=== PATIENT | male | born 1965 | race Hispanic/Latino ===

== ENCOUNTER 2017-11-27 02:59 | Inpatient (IN) | payer OTHER, SELFPAY ==
[2017-11-27] MEDS ORDERED: Ondansetron HCl/PF 4 MG/2 ML Vial ONE (03:20)
[2017-11-27] MEDS ORDERED: Lorazepam 2 MG/ML VIAL ONE (03:20)
[2017-11-27 03:28] LABS: #Basophils 0.1 thou/uL (0.0-0.2); #Eosinphils 0.2 thou/uL (0.0-0.7); #Lymphocytes 3.2 thou/uL (1.20-3.40); #Monocytes 0.7 thou/uL (0.11-0.59); #Neutrophils 8.5 thou/uL (1.40-6.50); %Basophils 0.8 % (0.0-1.0); %Eosinophils 1.4 % (0.0-10.0); %Monocytes 5.7 % (0.0-10.0); %Neutrophils 67.1 % (42.0-75.0); Hemoglobin 19.8 g/dL (14.0-18.0); Mean Corpuscular HGB CONC 33.7 g/dL (32.0-36.0); Mean Corpuscular Hemoglobin 32.2 pg (27.0-31.0); Mean Corpuscular Volume 95.4 fL (78.0-98.0); Mean Platelet Volume 7.7 fL (7.4-10.4); Platelet Count 294 thou/uL (130-400); RBC Distribution Width 12.4 % (11.5-14.5); Red Blood Cell (RBC) Count 6.17 mill/uL (4.70-6.10); White Blood Cell (WBC) Count 12.6 thou/uL (4.8-10.8)
[2017-11-27 03:45] LABS: Acetaminophen Less than 6.0 mcg/mL (10.0-30.0); Alcohol 217 mg/dL (Less than 10); Salicylate Less than 8.0 mg/dL (15.0-30.0)
[2017-11-27 03:53] LABS: Troponin I 1.928 ng/mL (< 0.028)
[2017-11-27] MEDS ORDERED: Enoxaparin Sodium 100 MG/ML SYRINGE ONE (04:09)
[2017-11-27] MEDS ORDERED: Aspirin 325 MG TAB ONE (04:09)
[2017-11-27 04:41] LABS: ALT (SGPT) 33 U/L (8-55); AST (SGOT) 65 U/L (5-34); Albumin 5.1 g/dL (3.5-5.0); Alkaline Phosphatase 104 U/L (40-150); Anion Gap 21 mmol/L (10-20); BUN (Urea Nitrogen) 7 mg/dL (8.4-25.7); Bilirubin, Total 0.9 mg/dL (0.2-1.2); CK (CPK) 455 U/L (30-200); Calc. Creatinine Clearance 0 mL/min (70-130); Calcium 9.3 mg/dL (7.8-10.44); Carbon Dioxide 25 mmol/L (22-29); Chloride 100 mmol/L (98-107); Estimated GFR-MDRD 86; Globulin 3.3 g/dL (2.4-3.5); Glucose 119 mg/dL (70-105); Potassium 3.3 mmol/L (3.5-5.1); Protein, Total 8.4 g/dL (6.0-8.3); Sodium 143 mmol/L (136-145)
[2017-11-27 05:13] LABS: Amphetamine Not Detected (NotDetected); Barbiturates Screen Not Detected (NotDetected); Benzodiazepine Screen Not Detected (NotDetected); Cocaine Metabolite Screen Detected (NotDetected); Medtox Reader # READER 1; Methadone Not Detected (NotDetected); Methamphetamine Not Detected (NotDetected); Opiate Screen Not Detected (NotDetected); Oxycodone Screen Not Detected (NotDetected); Phencyclidine (PCP) Not Detected (NotDetected); THC/Cannabinoid Screen Detected (NotDetected); Tricyclic Screen Not Detected (NotDetected)
[2017-11-27 05:14] LABS: Medtox Control Line Valid? VALID (VALID)
[2017-11-27 06:46] LABS: Troponin I 1.963 ng/mL (< 0.028)
[2017-11-27] MEDS ORDERED: Nitroglycerin 0.4 MG TAB (25 Tab Bottle) PO PRN (07:15)
--- NOTE | 2017-11-27 08:05 | RAD ---
PORTABLE CHEST 1 VIEW: Date: 11/27/17 Time: 0319 hours HISTORY: Chest pain. FINDINGS: Comparison made with exam of 06/15/15. The heart size is normal. No lobar consolidation, pneumothoraces, or pleural effusions are seen. IMPRESSION: No acute process. POS: [facility]
[2017-11-27] MEDS: Aspirin 325 MG TAB PO SCH (08:40)
[2017-11-27] MEDS: Carvedilol 3.125 MG TAB PO SCH ×2 (08:40→21:29)
[2017-11-27] MEDS: Enoxaparin Sodium 100 MG/ML SYRINGE SC SCH ×2 (08:40→21:28)
[2017-11-27] MEDS: Pantoprazole 40 MG VIAL IVP SCH ×2 (08:41→21:30)
[2017-11-27] MEDS: Sodium Chloride 0.9% 1,000 ML IV SCH ×2 (08:42→17:49)
[2017-11-27] MEDS: Amlodipine 5 MG TAB PO SCH (08:56)
[2017-11-27] MEDS: Losartan 25 MG TAB PO SCH (08:56)
[2017-11-27] MEDS ORDERED: Enoxaparin Sodium 80 MG/0.8 ML SYRINGE SC SCH (09:00)
[2017-11-27] MEDS ORDERED: Losartan 25 MG TAB PO SCH (09:00)
--- NOTE | 2017-11-27 09:20 | CON ---
DATE OF CONSULTATION: 11/27/2017 REASON FOR CONSULTATION: Chest pain, elevated troponins. HISTORY OF PRESENT ILLNESS: Mr. Barriga is a 51-year-old gentleman, who comes to the [facility] for chest pain. He was at home yesterday and earlier today started to have pain. He was vomiting for about 20 minutes prior to arrival to the ER. He has been drinking alcohol a lot more than usual for many years now. He has drank pretty much every evening after work, but the tells me that, i n the last few years, it has been more of two 6 packs after work. He has also been consuming cocaine . His last drink was yesterday about 9:00 p.m. He showed up to the ER at 3:00 a.m. He was admitted and he is currently still under the effects, but he is complaining of chest pain when you wake him u p. When I mentioned him that we might do a heart catheterization tomorrow, he tells me that he will just go home and come back tomorrow for it. PAST MEDICAL HISTORY: 1. Hypertension. 2. Type 2 diabetes. 3. Medication noncompliance. 4. Hyperlipidemia. 5. Substance abuse including cocaine since 11/2014 and alcohol use. 6. History of CVA. MEDICATIONS: 1. Losartan/hydrochlorothiazide 100/25 mg a day. 2. Metformin 500 mg daily. 3. Hydralazine 25 mg 3 times a day. ALLERGIES: No known drug allergies. SOCIAL HISTORY: He uses cocaine and marijuana, cocaine about 4 times a week, marijuana occasionally and alcohol use. He drinks about two 6 packs every day. He smokes a half a pack of cigarettes a day . REVIEW OF SYSTEMS: A 12-point review of systems was done and is all negative unless stated in the hi story of present illness. PHYSICAL EXAMINATION: VITAL SIGNS: Temperature 98.3, pulse 107, respiratory rate 18, satting 96% on room air, blood pressu re 184/106. GENERAL: He is sleeping in the bed. When we wake him up, he falls back to sleep. His speech is a l ittle slurred, seems a little intoxicated still, in no distress. HEENT: Normocephalic, atraumatic. NECK: Supple. LUNGS: Clear. CARDIOVASCULAR: S1 and S2, no S3 or S4, no murmurs. ABDOMEN: Soft, positive bowel sounds. EXTREMITIES: No edema. SKIN: Warm and dry. LABORATORY WORK: Reviewed. White count of 12, hemoglobin of 19.8, hematocrit of 58, platelet count of 294. Chemistry with a sodium of 143, potassium was 3.3, anion gap was 21, BUN of 7, creatinine 0. 92, GFR of 86, glucose of 119, AST 65, ALT 33, alkaline phosphatase 104. CK 455. CK-MB was 35. Tro ponin I was 1.9, repeat was 1.9; albumin of 5.1. Toxicology shows a plasma alcohol level of 217 and positive cocaine and cannabis. EKG shows no ischemic changes, sinus rhythm. ASSESSMENT AND PLAN: 1. Dud-SZ-fxwvczdyz myocardial infarction. 2. Cocaine use and alcohol use. 3. Hypertension. 4. Type 2 diabetes. 5. Noncompliance. PLAN: 1. Most likely, he will go into withdrawal in the next few hours or days. We would wait for this to happen before doing any invasive interventions on him. Currently, his troponin level is at a relati vely low level. I would probably continue to trend, get an echocardiogram to make sure his left vent ricular function is not reduced. 2. We would fully anticoagulate him with subcutaneous Lovenox at 1 mg/kilo b.i.d. 3. Counseled on importance of cessation of alcohol use and substance abuse. Thank you for letting us to participate in the care of your patient. We will continue to follow.
[2017-11-27] MEDS: Multivitamins, Adult 10 ML, Folic Acid 1 MG, Thiamine HCl 100 MG in Dextrose 5 %-0.45 %... IV SCH (10:30)
[2017-11-27 11:02] LABS: Hemoglobin 17.5 g/dL (14.0-18.0); Platelet Count 265 thou/uL (130-400)
--- NOTE | 2017-11-27 11:12 | HP ---
DATE OF ADMISSION: 11/27/2017 HISTORY OF PRESENT ILLNESS: This is a 51-year-old male with a long history of alcohol abuse, cocaine abuse, diabetes and hypertension, who presents with chest pain, nausea and vomiting. The patient has a long history of abuse. His is present. She states that he drinks excessive alcohol on a daily basis. He is followed by Dr. Godfrey in the office. He has been on a 3-day alco hol binge, beginning last . He has been drinking all throughout the day as well as using aislinn oliver and marijuana. He was doing well until yesterday evening when he began developing chest pain wi th intractable nausea and vomiting. This morning, he is restless, but does not complain of chest meagan n at this time. He has no further nausea and vomiting. The reports that he did have a history of a CVA in 2013. He also has not been taking any of these medications. MEDICATIONS: Include Ecotrin 325 q. day, hydralazine 25 t.i.d., losartan 50 q. day, Celexa 20 q. day , metformin 1000 b.i.d., and Lipitor 10 q. day. ALLERGIES: None. PAST MEDICAL HISTORY: Hypertension, hyperlipidemia, diabetes, alcohol, cocaine and marijuana abuse, history of CVA in 2013. PAST SURGICAL HISTORY: None noted. FAMILY HISTORY: Positive for diabetes, Alzheimer's, heart disease, mental illness, brain cancer. SOCIAL HISTORY: He is nonsmoker, drinks excessively, works and is . REVIEW OF SYSTEMS: As above. PHYSICAL EXAMINATION: VITAL SIGNS: Temperature 98.2, pulse 104, respirations 20, pulse ox 96, blood pressure 175/93. GENERAL: The patient is restless. He answers questions appropriately. HEENT: No jaundice noted. Mucous membranes somewhat dry. NECK: Supple. HEART: Regular rate and rhythm. LUNGS: Clear. ABDOMEN: Soft. EXTREMITIES: No edema. LABORATORY DATA: Drug screen positive for cocaine, marijuana, and alcohol with a level of 217. Whit e count 12.6, H&H 19 and 58. Sodium 143, potassium 3.3. Troponin I of 1.928 and 1.963. CK-MB 35. ASSESSMENT: 1. Uvt-JZ-wyaeydz elevation myocardial infarction. 2. Alcohol, cocaine and marijuana abuse. 3. Diabetes. 4. Hypertension. 5. Hyperlipidemia. 6. Depression. 7. Noncompliance. PLAN: 1. Banana bag daily. 2. PPI. 3. Echocardiogram. 4. Consult Cardiology. 5. DT precautions. 6. Hydrate and detox patient over the next several days.
[2017-11-27 11:28] LABS: Troponin I 2.763 ng/mL (< 0.028)
[2017-11-27] MEDS ORDERED: Metoprolol Tartrate 25 MG TAB PO SCH (13:30)
[2017-11-27] MEDS: hydrALAZINE 25 MG TAB PO SCH ×2 (14:43→21:30)
[2017-11-27] MEDS ORDERED: Dextrose 5% in Water 1,000 ML IV PRN (17:51)
[2017-11-27] MEDS ORDERED: Dextrose 50% Abboject 50 ML SYRINGE IVP PRN (17:51)
[2017-11-27 18:00] LABS: Hemoglobin 18.2 g/dL (14.0-18.0); Platelet Count 264 thou/uL (130-400)
[2017-11-27] MEDS: chlordiazePOXIDE HCl 25 MG CAP PO SCH (18:04)
[2017-11-27] MEDS: Metoprolol Tartrate 25 MG TAB PO SCH (21:29)
[2017-11-28] MEDS: chlordiazePOXIDE HCl 25 MG CAP PO SCH ×4 (01:02→17:13)
[2017-11-28 05:49] LABS: Cardiac Risk 3.2 (Less than 4.5)
[2017-11-28] MEDS: Sodium Chloride 0.9% 1,000 ML IV SCH ×3 (06:28→17:13)
[2017-11-28] MEDS ORDERED: Carvedilol 3.125 MG TAB PO SCH (07:31)
--- NOTE | 2017-11-28 07:48 | PRG ---
DATE OF SERVICE: 11/28/2017 The patient is feeling better. He feels tired, but denies chest pain or shortness of breath. He agarwal s have some recollection of what brought him to the emergency department, but it is hazy. Denies drai sea and vomiting. He admits to binging on alcohol, cocaine and marijuana over the past few days just because he has been working out of town. Denies tremors or jitteriness. No seizure activity. OBJECTIVE: VITAL SIGNS: Temperature 98.1, pulse of 97, respirations 18, blood pressure 160/104 which is improve d from admission. Pulse ox 96% on room air. GENERAL: He is awake and alert, appears tired, but in no acute distress. Speech is clear. Mucosa i s moist. NECK: Supple. HEART: Regular rate and rhythm. LUNGS: Clear bilaterally. ABDOMEN: Soft. No hepatosplenomegaly. EXTREMITIES: No edema. LABORATORY DATA: Hemoglobin and hematocrit 18.2 and 54.7. Accu-Cheks 163, 216, 183. Troponin I pea ked at 2.76. ASSESSMENT AND PLAN: 1. This is a 51-year-old gentleman with history of type 2 diabetes, hypertension, hyperlipidemia, kn own cerebrovascular accident in the past now with a non-ST elevation myocardial infarction. Continue Lovenox as per Cardiology. Await cardiology's plan for possible cardiac catheterization. 2. Cocaine use, alcohol use, marijuana use. Encourage abstinence from this. 3. Noncompliance, restarting his medicines. 4. Hypertension. We will continue to monitor, increase his medicines as needed.
[2017-11-28] MEDS: Amlodipine 5 MG TAB PO SCH (09:48)
[2017-11-28] MEDS: Carvedilol 6.25 MG TAB PO SCH ×2 (09:48→19:54)
[2017-11-28] MEDS: Aspirin 325 MG TAB PO SCH (09:48)
[2017-11-28] MEDS: Multivitamins, Adult 10 ML, Folic Acid 1 MG, Thiamine HCl 100 MG in Dextrose 5 %-0.45 %... IV SCH (09:49)
[2017-11-28] MEDS: hydrALAZINE 25 MG TAB PO SCH ×3 (09:49→19:54)
[2017-11-28] MEDS: Losartan 25 MG TAB PO SCH (09:49)
[2017-11-28] MEDS: Enoxaparin Sodium 100 MG/ML SYRINGE SC SCH ×2 (09:49→19:55)
[2017-11-28] MEDS: Metoprolol Tartrate 25 MG TAB PO SCH (09:49)
[2017-11-28] MEDS: Pantoprazole 40 MG VIAL IVP SCH ×2 (09:50→19:55)
[2017-11-28] MEDS: Insulin Regular 300 UNITS/3 ML VIAL SC PRN ×3 (11:33→21:25)
--- NOTE | 2017-11-28 15:54 | PDOC.CTH ---
Cardiology Progress Note - Subjective he has not gone into withdrawal yet but he is tachycardic. He denies chest pain , tightness, pressure, SOB. - Objective Vital Signs Temp Pulse Resp BP BP Pulse Ox 11/28/17 15:41 98.1 F 92 18 157/97 H 97 11/28/17 11:30 97.6 F 84 18 164/94 H 95 11/28/17 07:35 98.9 F 93 18 165/99 H 93 L 11/28/17 05:00 98.1 F 97 18 160/104 H 96 Admit Weight 194 lb 1 oz Weight 196 lb 6 oz 11/27/17 11/28/17 11/29/17 06:59 06:59 06:59 Intake Total 3142 Output Total 3200 Balance -58 - Physical Examination General/Neuro: alert & oriented x3, NAD Neck: no JVD present Lungs: CTA, unlabored respirations Heart: RRR Abdomen: NT/ND Extremities: other: (no edema) - Telemetry Telemetry Rhythm: Tachycardic - Labs Result Diagrams: 11/27/17 17:36 11/27/17 03:12 Troponin/CKMB CK-MB (CK-2) 35.0 ng/mL (0-6.6) H* 11/27/17 03:12 Troponin I 2.763 ng/mL (< 0.028) H* 11/27/17 10:23 - Assessment/Plan 1. NSTEMI 2. Alcohol abuse 3. Cocaine abuse 4. T2DM 5. Non compliance PLAN: - Continue medical management for now. - He has a normal EF with inferior hypokinesis on echo. - Will need LHC in the next few days. He has to prove he wont go into withdrawal first. - Likely LHC Tuesday if he is doing well tomorrow.
[2017-11-29] MEDS: chlordiazePOXIDE HCl 25 MG CAP PO SCH ×4 (00:05→20:17)
[2017-11-29] MEDS: Sodium Chloride 0.9% 1,000 ML IV SCH ×2 (03:41→23:17)
[2017-11-29] MEDS ORDERED: chlordiazePOXIDE HCl 25 MG CAP PO PRN (07:48)
--- NOTE | 2017-11-29 08:17 | PRG ---
DATE OF SERVICE: 11/29/2017 SUBJECTIVE: The patient is feeling fine. He denies any chest pain, shortness of breath. He is ambu lating in the anders. Denies any tremors or jitteriness. He is having a little bit more anxiety last night and today, mostly due to not sleeping well. Appetite is good. Awaiting heart catheterization. OBJECTIVE: VITAL SIGNS: Temperature 99.2, pulse of 88, respirations 18, blood pressure 145/90, pulse ox is 92-9 8% on room air. GENERAL: He is awake and alert, in no acute distress. He is comfortable. HEENT: Mucosa is moist. NECK: Supple. No tremors. No agitation. HEART: Regular rate and rhythm. LUNGS: Clear bilaterally. ABDOMEN: Soft. EXTREMITIES: With no edema. LABORATORY DATA: Accu-Cheks 154, 219, 211, 163. Echocardiogram with EF of 55% -60%, grade I/III ravindra stolic dysfunction and inferior hypokinesis, mildly dilated left atrium, mild MR, mild TR. ASSESSMENT AND PLAN: This is a 51-year-old gentleman with type 2 diabetes, hypertension, hyperlipide sparkle, cocaine and alcohol abuse and noncompliance, admitted with a non-ST elevation myocardial infarct ion. 1. Coronary artery disease. Plan for a left heart catheterization hopefully tomorrow per Cardiology . 2. Type 2 diabetes. We will continue meds and insulin sliding scale. 3. Substance abuse. No signs of withdrawal. We will continue Librium taper and move him to as need ed for symptoms. Encouraged abstinence. 4. Hypertension. We will continue to adjust medicines for tighter control.
[2017-11-29] MEDS: Pantoprazole 40 MG VIAL IVP SCH ×2 (09:24→20:23)
[2017-11-29] MEDS: Folic Acid 1 MG TAB PO SCH (09:28)
[2017-11-29] MEDS: Carvedilol 6.25 MG TAB PO SCH ×2 (09:28→20:17)
[2017-11-29] MEDS: Multivit, Therapeutic 1 TAB PO SCH (09:29)
[2017-11-29] MEDS: Aspirin 325 MG TAB PO SCH (09:45)
[2017-11-29] MEDS: Amlodipine 5 MG TAB PO SCH (09:45)
[2017-11-29] MEDS: Enoxaparin Sodium 100 MG/ML SYRINGE SC SCH ×2 (09:47→20:18)
[2017-11-29] MEDS: hydrALAZINE 25 MG TAB PO SCH ×3 (09:48→20:18)
[2017-11-29] MEDS: Losartan 25 MG TAB PO SCH (09:48)
[2017-11-29] MEDS ORDERED: chlordiazePOXIDE HCl 25 MG CAP PO SCH (12:00)
[2017-11-29] MEDS ORDERED: Promethazine HCl 25 MG/ML VIAL ONE (13:08)
--- NOTE | 2017-11-29 18:03 | PDOC.CTH ---
Cardiology Progress Note - Subjective He is doing better today. No chest pain, tightness, pressure, SOB. - Objective Vital Signs Temp Pulse Resp BP BP Pulse Ox 11/29/17 16:47 98.1 F 88 18 137/83 98 11/29/17 11:59 90 18 125/80 97 11/29/17 09:48 82 144/82 H 11/29/17 09:45 82 144/82 H 11/29/17 08:45 97.4 F L 82 16 144/82 H 98 Admit Weight 194 lb 1 oz Weight 199 lb 11.2 oz 11/28/17 11/29/17 11/30/17 06:59 06:59 06:59 Intake Total 3142 4613 1254 Output Total 3200 1600 733 Balance -58 3013 521 - Physical Examination General/Neuro: alert & oriented x3, NAD Neck: no JVD present Lungs: unlabored respirations Heart: RRR Abdomen: NT/ND Extremities: + edema B (no edema) - Telemetry Telemetry Rhythm: NSR - Labs Result Diagrams: 11/27/17 17:36 11/27/17 03:12 Troponin/CKMB CK-MB (CK-2) 35.0 ng/mL (0-6.6) H* 11/27/17 03:12 Troponin I 2.763 ng/mL (< 0.028) H* 11/27/17 10:23 - Assessment/Plan 1. NSTEMI 2. Alcohol abuse 3. Cocaine abuse 4. T2DM 5. Non compliance PLAN: - Normal EF with inferior hypokinesis on echo. - Will need [facility] tomorrow. - I spoke with him about this procedure, Risks including but not limited to stroke, [place], bleeding and need for blood transfusion, limb loss, organ loss, he agrees to proceed.
[2017-11-29] MEDS: Insulin Regular 300 UNITS/3 ML VIAL SC PRN (20:29)
[2017-11-30] MEDS: chlordiazePOXIDE HCl 25 MG CAP PO SCH ×2 (04:37→11:19)
[2017-11-30 05:35] LABS: ALT (SGPT) 22 U/L (8-55); AST (SGOT) 32 U/L (5-34); Albumin 3.7 g/dL (3.5-5.0); Alkaline Phosphatase 70 U/L (40-150); Anion Gap 11 mmol/L (10-20); BUN (Urea Nitrogen) 10 mg/dL (8.4-25.7); Bilirubin, Total 0.8 mg/dL (0.2-1.2); Calc. Creatinine Clearance 136 mL/min (70-130); Calcium 9.5 mg/dL (7.8-10.44); Carbon Dioxide 24 mmol/L (22-29); Chloride 108 mmol/L (98-107); Estimated GFR-MDRD Greater than 90; Globulin 2.9 g/dL (2.4-3.5); Glucose 182 mg/dL (70-105); Potassium 3.4 mmol/L (3.5-5.1); Protein, Total 6.6 g/dL (6.0-8.3); Sodium 140 mmol/L (136-145)
[2017-11-30 07:13] LABS: #Eosinphils 0.2 thou/uL (0.0-0.7); #Lymphocytes 1.8 thou/uL (1.20-3.40); #Monocytes 0.9 thou/uL (0.11-0.59); #Neutrophils 6.9 thou/uL (1.40-6.50); %Basophils 0.3 % (0.0-1.0); %Eosinophils 2.4 % (0.0-10.0); %Lymphocytes 18.5 % (21.0-51.0); %Monocytes 8.9 % (0.0-10.0); %Neutrophils 69.8 % (42.0-75.0); Hemoglobin 16.4 g/dL (14.0-18.0); Mean Corpuscular HGB CONC 33.1 g/dL (32.0-36.0); Mean Corpuscular Hemoglobin 32.1 pg (27.0-31.0); Mean Corpuscular Volume 96.8 fL (78.0-98.0); Platelet Count 196 thou/uL (130-400); RBC Distribution Width 12.3 % (11.5-14.5); Red Blood Cell (RBC) Count 5.11 mill/uL (4.70-6.10); White Blood Cell (WBC) Count 9.8 thou/uL (4.8-10.8)
--- NOTE | 2017-11-30 08:25 | PRG ---
DATE OF SERVICE: 11/30/2017 SUBJECTIVE: The patient continues to feel fine. He denies chest pain, shortness of breath. He is a mbulating in the room and slept fair last night. He denies any tremors or jitteriness. Denies seizu re activity. Anxiety has improved. Tolerating medications. Awaiting heart catheterization. PHYSICAL EXAMINATION: VITAL SIGNS: Temperature 98.2, pulse is 79, respirations 18, blood pressure 134/90, pulse ox is 96% on room air. GENERAL: He is awake and alert, in no acute distress. Speech is clear. NECK: Supple. HEART: Regular rate and rhythm. LUNGS: Clear. EXTREMITIES: With no edema. LABORATORY DATA: White blood cell count 9.8, hematocrit 16.4 and 49.5, platelets of 196. Sodium 140 , potassium 3.4, chloride 108, CO2 of 24, BUN and creatinine 10 and 0.81, serum glucose 150, 215, 164 . ASSESSMENT AND PLAN: This is a 51-year-old gentleman with history of type 2 diabetes, hypertension, hyperlipidemia, recent cocaine and alcohol use with noncompliance, admitted for a non-ST elevation my ocardial infarction. 1. Coronary artery disease. Plan for heart catheterization hopefully today if okay with Cardiology. Further plans after the procedure. 2. Type 2 diabetes. We will continue medications and sliding scale. 3. Substance abuse. Positive for cocaine, alcohol and marijuana. No signs of withdrawal at this ti me. Continue Librium taper. 4. Hypertension, stable. DISPOSITION: If the patient is able to have the heart catheterization today and cleared by Cardiolog y, possibly discharge home today with follow up in 1 week.
[2017-11-30] MEDS: Amlodipine 5 MG TAB PO SCH (09:15)
[2017-11-30] MEDS: Aspirin 325 MG TAB PO SCH (09:16)
[2017-11-30] MEDS: Enoxaparin Sodium 100 MG/ML SYRINGE SC SCH ×2 (09:16→22:17)
[2017-11-30] MEDS: Carvedilol 6.25 MG TAB PO SCH ×2 (09:16→22:18)
[2017-11-30] MEDS: Losartan 25 MG TAB PO SCH (09:19)
[2017-11-30] MEDS: Folic Acid 1 MG TAB PO SCH (09:19)
[2017-11-30] MEDS: Pantoprazole 40 MG VIAL IVP SCH ×2 (09:19→22:17)
[2017-11-30] MEDS: hydrALAZINE 25 MG TAB PO SCH ×3 (09:19→22:19)
[2017-11-30] MEDS: Multivit, Therapeutic 1 TAB PO SCH (09:19)
[2017-11-30] MEDS: Sodium Chloride 0.9% 1,000 ML IV SCH (09:28)
[2017-11-30] MEDS: Insulin Regular 300 UNITS/3 ML VIAL SC PRN (18:24)
--- NOTE | 2017-11-30 18:34 | PDOC.CTH ---
Cardiology Progress Note - Subjective No new issues. No chest pain. - Objective Vital Signs Temp Pulse Resp BP BP Pulse Ox 11/30/17 15:57 98.1 F 84 16 124/76 124/76 94 L 11/30/17 11:19 98.2 F 89 16 123/77 123/77 97 11/30/17 07:49 98.2 F 79 18 134/90 134/90 96 11/30/17 07:29 95 Admit Weight 194 lb 1 oz Weight 198 lb 11/29/17 11/30/17 12/01/17 06:59 06:59 06:59 Intake Total 4613 2351 Output Total 1600 1233 Balance 3013 1118 - Physical Examination General/Neuro: alert & oriented x3, NAD Neck: no JVD present Lungs: CTA, unlabored respirations Heart: RRR Abdomen: NT/ND Extremities: other: (no edema) - Telemetry Telemetry Rhythm: NSR - Labs Result Diagrams: 11/30/17 04:50 11/30/17 04:50 Troponin/CKMB CK-MB (CK-2) 35.0 ng/mL (0-6.6) H* 11/27/17 03:12 Troponin I 2.763 ng/mL (< 0.028) H* 11/27/17 10:23 - Assessment/Plan 1. NSTEMI 2. Alcohol abuse 3. Cocaine abuse 4. T2DM 5. Non compliance PLAN: - [facility] tomorrow.
[2017-12-01] MEDS: Sodium Chloride 0.9% 1,000 ML IV SCH ×2 (05:43→05:54)
[2017-12-01] MEDS: Losartan 25 MG TAB PO SCH (05:50)
[2017-12-01] MEDS: Amlodipine 5 MG TAB PO SCH (05:51)
[2017-12-01] MEDS: Folic Acid 1 MG TAB PO SCH (05:51)
[2017-12-01] MEDS: Carvedilol 6.25 MG TAB PO SCH ×2 (05:51→21:58)
[2017-12-01] MEDS: Aspirin 325 MG TAB PO SCH (05:51)
[2017-12-01] MEDS: Multivit, Therapeutic 1 TAB PO SCH (05:51)
[2017-12-01] MEDS: Pantoprazole 40 MG VIAL IVP SCH ×2 (05:52→21:58)
[2017-12-01] MEDS: hydrALAZINE 25 MG TAB PO SCH ×3 (05:52→21:57)
[2017-12-01] MEDS: Enoxaparin Sodium 100 MG/ML SYRINGE SC SCH (05:52)
[2017-12-01] MEDS ORDERED: chlordiazePOXIDE HCl 25 MG CAP PO PRN (08:38)
--- NOTE | 2017-12-01 08:49 | PRG ---
DATE OF SERVICE: 12/01/2017 SUBJECTIVE: The patient feels fine. He denies chest pain or shortness of breath. He is awaiting hi s heart catheterization. He does have some anxiety and night sweats at night, but improves with his medication. No tremors, no jitteriness, no seizure activity. Tolerating medications. Again, ambula ting without chest pain or shortness of breath. OBJECTIVE: VITAL SIGNS: Temperature 97.9, pulse of 83, respirations 17, blood pressure 124/76, pulse ox is 96% on room air. GENERAL: He is awake and alert, in no acute distress. No resting tremor. Speech is clear. NECK: Supple. HEART: Regular rate and rhythm. LUNGS: Clear. EXTREMITIES: No edema. LABORATORY DATA: Accu-Cheks 228, 183, 286, 197, 150. Heart catheterization is pending. ASSESSMENT AND PLAN: This is a 51-year-old gentleman with a history of type 2 diabetes, hypertension , hyperlipidemia, cocaine and alcohol abuse and noncompliance, who was admitted with a non-ST elevati on myocardial infarction. 1. Coronary artery disease. Plan for heart catheterization per Cardiology. Further plans after the procedure. 2. Type 2 diabetes. Will increase his medications. 3. Substance abuse. No signs of withdrawal. We will continue Librium p.r.n. at this time. 4. Hypertension. We will continue oral medications. DISPOSITION: Hopefully home today with close followup.
[2017-12-01] MEDS ORDERED: Lidocaine 1% (PF) 30 ML VIAL ONE (11:38)
[2017-12-01] MEDS ORDERED: Fentanyl 100 MCG/2 ML VIAL ONE (12:16)
[2017-12-01] MEDS ORDERED: Midazolam HCl 2 mg/2 ml Vial ONE (12:16)
[2017-12-01] MEDS ORDERED: Iopamidol 370 76% 100 ML VIAL ONE (12:24)
[2017-12-01] MEDS ORDERED: traMADol HCl 50 MG TAB PO PRN (12:47)
[2017-12-01] MEDS ORDERED: Acetaminophen/Codeine 30-300mg Tablet PO PRN (12:47)
[2017-12-01] MEDS ORDERED: Sodium Chloride 0.9% 1,000 ML IV SCH (13:00)
[2017-12-01] MEDS ORDERED: Sodium Chloride 0.9% 200 ML IV SCH (13:00)
[2017-12-01] MEDS: Insulin Regular 300 UNITS/3 ML VIAL SC PRN (17:22)
[2017-12-01] MEDS ORDERED: Communication Order-Pharmacy FS ONE (18:29)
[2017-12-01 19:23] LABS: Hemoglobin A1c 7.2 % (4.0-6.0)
[2017-12-01 19:24] LABS: PTT 32.7 SEC (22.9-36.1); Prothrombin Time 13.1 SEC (12.0-14.7)
--- NOTE | 2017-12-02 00:23 | CON ---
DATE OF CONSULTATION: 12/01/2017 REQUESTING PHYSICIAN: Dr. Villegas. CHIEF COMPLAINT: Chest pain. HISTORY OF PRESENT ILLNESS: Patient is a 51-year-old diabetic hypertensive man with a positive famil y history of coronary artery disease. The patient apparently has a well-known history of alcohol and illicit drug use. He presented this past weekend with prolonged chest pain, nausea and vomiting aft er a binge of drinking and using cocaine. He ruled in for myocardial infarction by enzymes, although he had no ST changes on his EKG. He did have poor R-wave progression in precordial leads and deep Q -waves in leads III and AVF. He underwent cardiac catheterization today, which demonstrated coronary artery disease primarily affecting the LAD distribution. PAST MEDICAL HISTORY: Significant for hypertension, diabetes, and substance abuse. HOME MEDICATIONS: Januvia 50 mg a day, hydralazine 50 mg t.i.d., losartan 100 mg a day, Coreg 12.5 m g b.i.d., Norvasc 5 mg a day. Normally, he is also on p.r.n. Librium and thiamine. His antihyperten sive regimen an adult aspirin if continued, he is on b.i.d. IV Protonix and full anticoagulation Love nox at 90 mg q.12 hours ALLERGIES: He denies any medical allergies. He says that he quit smoking after his stroke in 2013 (hospital records would indicate that he had a left hemispheric stroke in 2013, at which time he had a normal carotid ultrasound and normal CTA of t he carotids). FAMILY HISTORY: Significant for coronary artery disease in a grandparent and positive for diabetes. REVIEW OF SYSTEMS: Negative for any current eye, speech, facial or extremity symptoms consistent wit h TIAs. He reports resolved dysarthria following his stroke, but minimal residual right leg weakness . He denies any baseline shortness of breath or wheezing, any antecedent chest pain. PHYSICAL EXAMINATION: GENERAL: He is a ramos appearing man in no distress. He is 5 feet 8 inches, weighs 198 pounds. VITAL SIGNS: On presentation, his heart rate was 103 and blood pressure 183/113. Most recently, his heart rate was 80 and blood pressure 144/85, temperature is 98.7, room air O2 sats are 96%. HEENT: He has no xanthelasma. NECK: No JVD, no carotid bruits. LUNGS: Chest is clear to auscultation. CARDIOVASCULAR: He has a regular rate and rhythm without murmur or gallop. ABDOMEN: Soft, nontender. EXTREMITIES: He has easily palpable radial, dorsalis pedis, and posterior tibial pulses. He has no obvious varicosities. No clubbing, cyanosis or edema. NEUROLOGIC: Cranial nerves II-XII and upper and lower extremity strength are grossly normal. DIAGNOSTIC DATA: His chest x-ray showed some vascular crowding consistent with either poor inspirati on or pulmonary edema. His EKG is as described as above. His cardiac catheterization shows some min imal luminal irregularity in the very proximal LAD. He has a small first diagonal that appears diffu sely diseased, but there is a focal high-grade stenosis proximally, measuring about 80 or 90%. Short ly after that, serial lesions in his LAD with the worst one being about 70-80%. The LAD goes around to the apex as a circumflex gives rise to a very large first obtuse marginal. Circumflex proper and that first OM are smooth. There is an occluded tiny OM2. He has a fairly good sized right coronary system with both PDA and posterolateral branch, has been fairly well developed. There is a hint of s ome minimal luminal irregularity in the origin of the PDA. LVEF by my estimate to be about 40 or per haps 50% with a distinct area of inferoapical akinesis. LV pressure is 135/7 with an EDP of 31. Aor tic pressure on pullback is 138/78 with a mean of 102. LABORATORY DATA: Laboratory exam showed white count of 12.6, hemoglobin 19.8, hematocrit 58.8, plate lets 294,000 on admission. His MCV was 95.4 even today after 4 days of hydration, his hemoglobin is 16.4. PT is 13.6, INR 1.0, PTT 26.8 in 05/2015, been no more done more recently than that. His elec trolytes are normal. Glucose 119, BUN 7, creatinine 0.92 on admission and remained fairly similar wi BUN 10 and creatinine 0.81 this morning, his LFTs have been normal. Calcium normal. Cholesterol was 165 with LDL 85 and HDL 51, triglycerides 143. In looking back to previous visits, his last hemo globin A1c in our system was in March of this year was 8.6; going back to 2012, his hemoglobin A1c 's have ranged from 7.7-10.3. IMPRESSION AND RECOMMENDATIONS: Severe single-vessel disease. The occluded obtuse marginal is a tin y vessel that is not likely to be bypassable. There is trivial disease in the PDA. The affected ravindra gonal is fairly modest size and appears to be of diffuse enough disease that it may or may not be gra ftable. Bypassing the LAD without the diagonal will provide good symptomatic control and certainly o nce he is over the operation, will not in the short term require medical compliance, but I have discu ssed with him the importance of long-term risk factor modification. I have also stressed to him that bypass surgery, in this setting, does not offer significant enough advantage over medical therapy or PCI to survival advantage. I have explained this to him in the presence of his and his mother. He has had a chance to think about this during the day after his discussion with the regulatory affairs coordinator, Dr. Villegas and he wishes to proceed with coronary artery bypass grafting.
[2017-12-02] MEDS: Sodium Chloride 0.9% 1,000 ML IV SCH ×3 (05:05→16:59)
[2017-12-02 05:10] LABS: Calc. Creatinine Clearance 141 mL/min (70-130); Estimated GFR-MDRD Greater than 90
[2017-12-02 05:11] LABS: Hemoglobin 15.6 g/dL (14.0-18.0); Platelet Count 232 thou/uL (130-400)
[2017-12-02] MEDS: Carvedilol 6.25 MG TAB PO SCH (07:47)
--- NOTE | 2017-12-02 08:28 | PRG ---
DATE OF SERVICE: 12/02/2017 SUBJECTIVE: The patient denies chest pain. Denies shortness of breath. He tolerated the cardiac ca th procedure yesterday and is planning for coronary bypass graft today. He denies any tremors. He s lept better last night with less night sweats. He is ambulating in the hallway without difficulty. Slightly anxious about the procedure today. OBJECTIVE: VITAL SIGNS: Temperature 98.6, pulse of 83 and regular, respirations 16, blood pressure 155/95, puls e ox is 98% on room air. GENERAL: He is awake and alert, in no acute distress. Speech is clear. HEART: Regular rate and rhythm. LUNGS: Clear. EXTREMITIES: With no edema. LABORATORY DATA: Hemoglobin and hematocrit 15.6 and 46.2, platelets of 232,000. PT, PTT are normal. GFR greater than 90. Accu-Chek 228, 204, 154. Again, cardiac catheterization revealed severe mid LAD disease, normal ejection fraction of 55%, ann re D1 moderate sized vessel. ASSESSMENT AND PLAN: This is a 51-year-old gentleman admitted for chest pain and non-ST elevation MS as well as recent substance abuse including cocaine, marijuana, and alcohol. 1. Coronary artery disease. Plan for bypass today per Dr. Rose. 2. Type 2 diabetes. We will continue to increase treatment. We will initiate Lantus today. 3. Hypertension. We will continue oral meds. 4. Substance abuse, successfully detoxed, continue Librium p.r.n. and watch for signs of withdrawals .
[2017-12-02] MEDS ORDERED: Alogliptin 6.25 MG TAB PO SCH (09:00)
[2017-12-02] MEDS ORDERED: PROPOFOL 200 MG/20 ML VIAL ONE (10:01)
[2017-12-02] MEDS ORDERED: Mannitol 12.5 GM/50 ML ONE (10:01)
[2017-12-02] MEDS ORDERED: Thrombin 5000 UNITS/5 ML VIAL ONE (10:01)
[2017-12-02] MEDS ORDERED: Aminocaproic Acid 5 GM/20 ML VIAL ONE (10:01)
[2017-12-02] MEDS ORDERED: Heparin 5,000 UNITS/ML VIAL ONE (10:01)
[2017-12-02] MEDS ORDERED: Calcium Chloride 1 GM/10 ML Abboject SYRINGE ONE (10:01)
[2017-12-02] MEDS ORDERED: Protamine Sulfate 250 MG/25 ML VIAL ONE (10:01)
[2017-12-02] MEDS ORDERED: Papaverine 60 MG/2 ML VIAL ONE (10:01)
[2017-12-02] MEDS ORDERED: Cardioplegic Soln 1,000 ML BAG ONE (10:01)
[2017-12-02] MEDS ORDERED: Nitroglycerin 50 MG/250 ML BOT ONE (10:01)
[2017-12-02] MEDS ORDERED: Magnesium 5 GM/10 ML VIAL ONE (10:01)
[2017-12-02] MEDS ORDERED: Heparin 30,000 units/30 ml VIAL ONE (10:01)
[2017-12-02] MEDS ORDERED: Lidocaine 2% PF 100 mg/5 ml Syringe ONE (10:01)
[2017-12-02] MEDS ORDERED: Potassium Chloride 60 MEQ/30 ML VIAL ONE (10:01)
[2017-12-02] MEDS ORDERED: Sodium Bicarb 50 MEQ/50 ML Abboject 8.4% SYRINGE ONE (10:01)
[2017-12-02] MEDS ORDERED: Vecuronium 10 MG VIAL ONE ×2 (10:01→12:05)
[2017-12-02] MEDS ORDERED: Albumin 5% 0 ML ONE (11:04)
[2017-12-02] MEDS ORDERED: CEFAZOLIN/Water 2 GM/20 ML SYRINGE ONE (11:20)
[2017-12-02] MEDS ORDERED: Heparin 10,000 UNITS/1 ML VIAL 30,000 UNITS in Sodium Chloride 0.9% 1,000 ML FS SCH (12:00)
[2017-12-02] MEDS ORDERED: Fentanyl 250 MCG/5 ML VIAL ONE (12:05)
[2017-12-02] MEDS ORDERED: Midazolam HCl 5 mg/5 ml Vial ONE (12:05)
[2017-12-02] MEDS ORDERED: Midazolam HCl 2 mg/2 ml Vial ONE (12:15)
--- NOTE | 2017-12-02 13:01 | PDOC.CTH ---
Cardiology Progress Note - Subjective He is doing well. He was seen before surgery. he decided to have CABG. - Objective Vital Signs Temp Pulse Resp BP BP BP Pulse Ox 12/02/17 07:47 155/95 H 12/02/17 07:10 98.6 F 83 16 155/95 H 98 12/02/17 06:55 94 L 12/02/17 04:00 98.6 F 79 17 134/78 97 Admit Weight 194 lb 1 oz Weight 198 lb 12/01/17 12/02/17 12/03/17 06:59 06:59 06:59 Intake Total 1760 1377 Output Total 1200 1240 Balance 560 137 - Physical Examination General/Neuro: alert & oriented x3, NAD Neck: no JVD present Lungs: CTA, unlabored respirations Heart: RRR Abdomen: NT/ND Extremities: other: (No edema) - Telemetry Telemetry Rhythm: NSR - Labs Result Diagrams: 12/02/17 04:37 12/02/17 04:37 Troponin/CKMB CK-MB (CK-2) 35.0 ng/mL (0-6.6) H* 11/27/17 03:12 Troponin I 2.763 ng/mL (< 0.028) H* 11/27/17 10:23 - Assessment/Plan 1. NSTEMI 2. Alcohol abuse 3. Cocaine abuse 4. T2DM 5. Non compliance PLAN: - Multivessel CAD. - For CABG today.
[2017-12-02] MEDS ORDERED: Heparin 10,000 UNITS/1 ML VIAL ONE (13:13)
[2017-12-02] MEDS ORDERED: Insulin Regular 300 UNITS/3 ML VIAL ONE (14:46)
[2017-12-02] MEDS ORDERED: Promethazine HCl 25 MG/ML VIAL IM PRN (16:07)
[2017-12-02] MEDS ORDERED: hydrALAZINE 20 MG/ML VIAL SLOW IVP PRN (16:07)
[2017-12-02] MEDS ORDERED: Guaifenesin DM 100-10/5 ML UDCUP PO PRN (16:07)
[2017-12-02] MEDS ORDERED: Mag-Al 1200 mg/1200 mg/30 ML UDCUP PO PRN (16:07)
[2017-12-02] MEDS ORDERED: Dextrose 5% in Water 1,000 ML IV PRN ×2 (16:07→16:30)
[2017-12-02] MEDS ORDERED: Hetastarch 6% 500 ML 500 ML IVPB PRN (16:07)
[2017-12-02] MEDS ORDERED: Bisacodyl 5 MG TAB PO PRN (16:07)
[2017-12-02] MEDS ORDERED: Dextrose 50% Abboject 50 ML SYRINGE SLOW IVP PRN ×2 (16:07→16:30)
[2017-12-02] MEDS ORDERED: Acetaminophen 325 MG TAB PO PRN (16:07)
[2017-12-02] MEDS ORDERED: Norepinephrine 8 MG/0.9% NS 250 ML IVPB PRN (16:07)
[2017-12-02] MEDS ORDERED: HYDROcodone/Acetaminophen 5/325 mg Tablet PO PRN (16:07)
[2017-12-02] MEDS ORDERED: Nitroglycerin 50 MG/250 ML BOT 250 ML IVPB PRN (16:07)
[2017-12-02] MEDS ORDERED: Post-Op Insulin Drip Protocol IVPB ONE (16:07)
[2017-12-02] MEDS ORDERED: Bisacodyl 10 MG SUPP PR PRN (16:07)
[2017-12-02] MEDS ORDERED: Fentanyl 100 MCG/2 ML VIAL SLOW IVP PRN ×2 (16:07)
[2017-12-02] MEDS ORDERED: Ondansetron HCl/PF 4 MG/2 ML Vial IVP PRN (16:07)
[2017-12-02] MEDS: Morphine 2 MG/ML SYRINGE SLOW IVP PRN ×2 (16:49→17:41)
[2017-12-02] MEDS: Ketorolac Tromethamine 30 MG/ML VIAL IVP SCH ×2 (16:50→22:59)
[2017-12-02 17:04] LABS: Base Excess (BEa) 1.3 mEq/L (-2.0 to +3.0); CO2 Tension 32.6 mmHg (35.0-45.0); Calcium, Ionized 1.16 mmol/L (1.12-1.30); Carboxyhemoglobin (COHb) 1.6 gm% (0.0-3.0); Hemoglobin (Hb) 15.4 g/dL (14.0-18.0); Potassium - ABG Lab 2.98 mmol/L (3.70-5.30); pH, Arterial 7.48 (7.35-7.45)
[2017-12-02 17:05] LABS: Puncture Site ALINE
[2017-12-02 17:07] LABS: Hemoglobin 14.7 g/dL (14.0-18.0)
[2017-12-02 17:09] LABS: Hemoglobin 14.7 g/dL (14.0-18.0); Mean Corpuscular HGB CONC 33.8 g/dL (32.0-36.0); Mean Corpuscular Hemoglobin 32.8 pg (27.0-31.0); Mean Corpuscular Volume 97.1 fL (78.0-98.0); Mean Platelet Volume 8.8 fL (7.4-10.4); Platelet Count 207 thou/uL (130-400); Red Blood Cell (RBC) Count 4.47 mill/uL (4.70-6.10); White Blood Cell (WBC) Count 26.3 thou/uL (4.8-10.8)
[2017-12-02 17:11] LABS: INR-International Normal Ratio 1.3; PTT 31.1 SEC (22.9-36.1)
[2017-12-02 17:22] LABS: Anion Gap 9 mmol/L (10-20); BUN (Urea Nitrogen) 11 mg/dL (8.4-25.7); Calc. Creatinine Clearance 161 mL/min (70-130); Calcium 8.6 mg/dL (7.8-10.44); Carbon Dioxide 22 mmol/L (22-29); Chloride 109 mmol/L (98-107); Estimated GFR-MDRD Greater than 90; Glucose 169 mg/dL (70-105); Potassium 3.4 mmol/L (3.5-5.1); Sodium 137 mmol/L (136-145)
[2017-12-02 17:24] LABS: Band 8 % (5-11); Lymphocytes 16 % (21-51); MDiff Complete? YES; Monocytes 6 % (0-10); Neutrophil 70 % (42-75); PLT Morphology Comment Appears Adequate; RBC Morphology Normal
[2017-12-02] MEDS: Enalaprilat Dihydrate 1.25 MG/ML VIAL SLOW IVP PRN ×2 (17:25→23:21)
[2017-12-02 17:44] LABS: Potassium 3.4 mmol/L (3.5-5.1)
--- NOTE | 2017-12-02 17:48 | RAD ---
CHEST ONE VIEW: 12/02/17 HISTORY: Heart surgery. Followup. COMPARISON: 11/27/17. FINDINGS: Cardiac silhouette magnified by projection. Pulmonary vasculature is unremarkable. Mediastinum is mi dline with postoperative changes now evident. radiopaque mediastinal drains. Tip of an endotracheal catheter overlies the thoracic inlet. Tip of a left subclavian central venous catheter overlies the cavoatrial junction. No evidence of pneumothorax. IMPRESSION: Interval postoperative changes mediastinum. Lines and tubes appear in good radiographic position. POS: [facility]
[2017-12-02] MEDS: Potassium Chloride 20 MEQ/100 ML PREMIX BAG IVPB PRN ×2 (17:59→22:58)
[2017-12-02 18:18] VITALS: BMI 31.1
[2017-12-02] MEDS: Docusate 100 MG CAP PO SCH (20:09)
[2017-12-02] MEDS: Atorvastatin Calcium 40 MG TAB PO SCH (20:10)
[2017-12-02] MEDS ORDERED: Famotidine/PF 20 mg/2ml Vial SLOW IVP SCH (21:00)
[2017-12-02] MEDS ORDERED: Insulin Glargine 10 UNITS in Pre-Filled Syringe 1 EACH SC SCH (21:00)
[2017-12-02 22:16] LABS: Hemoglobin 14.6 g/dL (14.0-18.0)
[2017-12-02 22:39] LABS: Potassium 3.9 mmol/L (3.5-5.1)
--- NOTE | 2017-12-02 22:47 | OP ---
DATE OF PROCEDURE: 12/02/2017 PROCEDURES PERFORMED: Coronary artery bypass grafting x3 with left internal mammary artery to the di stal LAD and reverse greater saphenous vein graft from the aorta to the first diagonal and to the sec ond obtuse marginal. PREOPERATIVE DIAGNOSIS: Coronary artery disease, status post non-ST elevation myocardial infarction. POSTOPERATIVE DIAGNOSIS: Coronary artery disease, status post non-ST elevation myocardial infarction . SURGEON: Dr. Rose. PRODUCTION SCHEDULER: Dr. Kaminski. ANESTHESIA: General endotracheal anesthesia. INDICATIONS: The patient is a 51-year-old diabetic man who presented with protracted chest pain and ruled in for myocardial infarction by enzymes. Cardiac catheterization demonstrated high grade disea se in his LAD and then a marginally sized first diagonal. He also had an occluded small OM2 with no compromising disease in the large OM1 and trivial disease in the PDA. He had a low normal EF at arou nd 40% with an area of inferior lead with apical akinesis. He is now taken to the operating room for surgical revascularization. FINDINGS: Pump time 67 minutes, crossclamp time 32 minutes. Good quality AUBREY and saphenous vein. L AD was about 2 mm somewhat sclerotic vessel. The first diagonal was about a 1.5 mm good quality vess el. The second obtuse marginal is 1-1.5 mm vessel where it is grafted proximally. The pericardium w as closed. NARRATIVE REPORT: After informed consent was obtained, the patient was taken to the operating room a nd placed in supine position on the operating table. After the induction of general endotracheal ane sthesia, vein in his left lower extremity was mapped ultrasonographically. His left upper chest was prepped and draped in sterile fashion. He was placed in Trendelenburg and a triple-lumen central rachna e kit was used to place a left subclavian line by the Seldinger technique. All three ports easily as pirated and flushed. The line was secured to the skin with suture. The patient's torso, groins and lower extremities were then prepped and draped in sterile fashion. A median sternotomy was performed . The pericardium was opened and the heart was examined. The first diagonal appeared to be reasonab ly good sized and good quality vessel. Exposure of the circumflex system was somewhat more difficult , but the second obtuse marginal at least on a warm beating heart appeared to be of reasonable sized at least consider grafting. The patient tolerated these maneuvers. The sternal retractor was placed with an AUBREY retractor and through an extrapleural exposure, the left AUBREY was mobilized as a pedicle from the level of the xiphoid to the level of the subclavian vein while an insurance claims assistant endoscopically h arvested greater saphenous vein from the left knee to the left groin. The vein was prepared for gee ting and the harvest sites closed in layers of subcutaneous and subcuticular Vicryl. The patient was heparinized. The mammary was ligated and divided distally. There was excellent flow through the ma mmary which was instilled intraluminally with papaverine solution. The mammary bed was inspected for hemostasis. The hilar reflections of the pleura were mobilized. A small rent in the pleura anterio rly near the apex was oversewn with Prolene. The pericardium was marsupialized and the aorta was aga in reexamined. It was soft. A double concentric pursestring of 2-0 Ethibond was placed in the ascen ding aorta within the pericardial reflection and a single pursestring was placed in the right atrial appendage. Aortic and venous cannulae were inserted and secured by their pursestrings. The plane be tween the aorta and the pulmonary artery was developed. Cardiopulmonary bypass was instituted and th e patient was systemically cooled. The heart was reexamined and an aortic cross clamp was applied an d cardioplegia was administered through an aortic root needle. When arrest had been achieved, attent ion was turned to the circumflex system. The second obtuse marginal was a fairly small vessel but ve ry proximally it appeared to be of adequate size to support graft. It was exposed and opened with a [place] blade and Cross scissors. Reverse greater saphenous vein was anastomosed with running 6-0 Prolene suture passing 1 mm probe easily through the toe of the anastomosis. The anastomosis was lynette zoila by flushing cold cardioplegia through the graft. Attention was then turned to the diagonal. It was opened and grafted in a similar fashion. The LAD was then opened. The mammary was passed throug h a slit in the pericardium anterior to the left phrenic nerve and anastomosed to the LAD end-to-side with running 7-0 Prolene. The mammary pedicle was tacked to the epicardium. The aortic cross clamp s were placed with the partial occluding clamp. Aortotomies were made in the ascending aorta with a scalpel and punch incorporating the root needle site for one of the aortotomies. The diagonal graft was anastomosed to the more proximal aortotomy and the OM2 graft to the more distal aortotomy. Occlu ding clamp removed. The vein grafts were deaired and the bulldogs were removed from the anastomoses were inspected for hemostasis. The proximal anastomoses were marked with small Hemoclips. A posteri or pericardial drain was brought out through separate incision and secured with suture. Right atrial and right ventricular temporary epicardial pacing wires were placed. When the patient was adequatel y rewarmed, he was then easily from cardiopulmonary bypass. The aortic and venous cannulae were removed and their pursestring secured. Protamine was administered. When hemostasis was adequa te, an anterior mediastinal drain was placed and the pericardium and was easily closed over the runni ng Vicryl. The sternum was treated with platelet rich GPS and vancomycin paste and reapproximated wi th #7 stainless steel wires. The fascia and subcutaneous tissue was irrigated and treated with plate let poor GPS. The fascia was closed over the wires with heavy Vicryl. The subcutaneous tissue was t reated with additional platelet poor GPS and reapproximated with running Vicryl, and the skin was luiza sed with Vicryl subcuticular stitch. The wounds were dressed and the patient was taken to the Intens sade Care Unit in stable condition.
[2017-12-02 23:02] LABS: Actual Bicarbonate (HCO3a) 22.2 mEq/L (22-28); Analyzer IN Cardio ER; Base Excess (BEa) -1.6 mEq/L (-2.0 to +3.0); CO2 Tension 35.3 mmHg (35.0-45.0); Calcium, Ionized 1.15 mmol/L (1.12-1.30); Carboxyhemoglobin (COHb) 0.5 gm% (0.0-3.0); Hemoglobin (Hb) 14.8 g/dL (14.0-18.0); O2 Tension (PaO2) 106.8 mmHg (80.0-100.0); Potassium - ABG Lab 3.82 mmol/L (3.70-5.30); pH, Arterial 7.42 (7.35-7.45)
[2017-12-02 23:26] LABS: ALV-art Gradient 134.275 (0-20); Puncture Site ALINE
[2017-12-02] MEDS: HYDROcodone/Acetaminophen 5/325 mg Tablet PO PRN (23:55)
[2017-12-03 03:29] LABS: #Lymphocytes 0.8 thou/uL (1.20-3.40); #Monocytes 1.2 thou/uL (0.11-0.59); #Neutrophils 15.3 thou/uL (1.40-6.50); %Eosinophils 0.1 % (0.0-10.0); %Lymphocytes 4.7 % (21.0-51.0); %Monocytes 6.9 % (0.0-10.0); %Neutrophils 88.3 % (42.0-75.0); Hemoglobin 13.9 g/dL (14.0-18.0); Mean Platelet Volume 8.5 fL (7.4-10.4); Platelet Count 211 thou/uL (130-400); RBC Distribution Width 12.3 % (11.5-14.5); White Blood Cell (WBC) Count 17.3 thou/uL (4.8-10.8)
[2017-12-03 03:44] LABS: Anion Gap 10 mmol/L (10-20); BUN (Urea Nitrogen) 14 mg/dL (8.4-25.7); Calc. Creatinine Clearance 174 mL/min (70-130); Calcium 8.8 mg/dL (7.8-10.44); Carbon Dioxide 25 mmol/L (22-29); Chloride 108 mmol/L (98-107); Estimated GFR-MDRD Greater than 90; Glucose 121 mg/dL (70-105); Potassium 3.8 mmol/L (3.5-5.1); Sodium 139 mmol/L (136-145)
[2017-12-03] MEDS: HYDROcodone/Acetaminophen 5/325 mg Tablet PO PRN ×2 (04:03→20:11)
[2017-12-03] MEDS: Potassium Chloride 20 MEQ/100 ML PREMIX BAG IVPB PRN (04:04)
[2017-12-03] MEDS: Ketorolac Tromethamine 30 MG/ML VIAL IVP SCH ×4 (05:05→23:18)
[2017-12-03] MEDS: Sodium Chloride 0.9% 1,000 ML IV SCH ×2 (05:08→12:09)
[2017-12-03] MEDS ORDERED: ALPRAZolam 0.25 MG TAB PO PRN (08:02)
--- NOTE | 2017-12-03 08:03 | RAD ---
Chest 1 view: HISTORY: Surgery. Followup. COMPARISON: 12/02/2017. FINDINGS: Cardiac silhouette is magnified by projection. The patient is slightly rotated leftward. Left basil ar atelectasis and postoperative changes in the mediastinum are again demonstrated. Mediastinal drai ns remain in place. Endotracheal catheter is no longer visible. leadership development consultant leads overlie the c hest. IMPRESSION: Interval extubation. Otherwise, stable postoperative appearance of the chest. POS: [facility]
[2017-12-03] MEDS: Docusate 100 MG CAP PO SCH ×2 (09:41→20:11)
[2017-12-03] MEDS: Aspirin 325 MG TAB PO SCH (09:41)
[2017-12-03] MEDS: BEER 1 CAN PO SCH ×2 (12:01→17:53)
[2017-12-03] MEDS: Insulin Regular 300 UNITS/3 ML VIAL SC PRN ×4 (12:26→23:19)
--- NOTE | 2017-12-03 14:22 | PRG ---
DATE OF SERVICE: 12/03/2017 SUBJECTIVE: Postop day #1 from 3-vessel bypass. The patient is feeling better. He has postoperativ e pain. He is sitting up and eating. States, he denies shortness of breath. Still in the ICU, adelaideu ricki with assistance. PHYSICAL EXAMINATION: VITAL SIGNS: Temperature 99.0, heart rate 87, respirations 20, blood pressure 119/82, pulse ox is 98 % on nasal cannula. GENERAL: He is awake, alert, in no acute distress. Speech is clear. NECK: Supple. HEART: Regular rate and rhythm. LUNGS: Clear. EXTREMITIES: With no edema. LABORATORY DATA: White blood cell count 17,300, hemoglobin and hematocrit 13.9 and 39.8, platelets o f 211. Accu-Cheks 114, 99, 88. ASSESSMENT: This is a 51-year-old gentleman admitted for a non-ST elevation myocardial infarction, f ound to have 3-vessel disease and now status post coronary artery bypass graft, postop day #1. PLAN: 1. Further postoperative care as per Cardiovascular Surgery. He seems to be doing well and will be arranging outpatient cardiac rehabilitation to be initiated. 2. Coronary artery disease. Continue medications as per Cardiology including statin, ANANYA inhibitor, anticoagulant. 3. Type 2 diabetes, appears to be stable. We will continue to monitor with insulin sliding scale, m ay need to initiate a basal insulin once his diet increases. 4. History of recent substance abuse with cocaine and alcohol and marijuana. He appears to have com pleted detox with Librium over the past 3-4 days. We will continue to monitor and use p.r.n. anxioly tics to prevent withdrawals.
--- NOTE | 2017-12-03 17:13 | EKG ---
Test Reason : Blood Pressure : / mmHG Vent. Rate : 106 BPM Atrial Rate : 106 BPM P-R Int : 156 ms QRS Dur : 086 ms QT Int : 350 ms P-R-T Axes : 028 -68 043 degrees QTc Int : 464 ms Sinus tachycardia Possible Left atrial enlargement Left axis deviation Inferior infarct , age undetermined Anterior infarct , age undetermined Abnormal ECG Confirmed by POLINA MURRELL ([id number]), web editor BORIS BROWN ([id number]) on 12/03/2017 5:12:48 PM Referred By: Confirmed By:POLINA MURRELL
[2017-12-03] MEDS: Atorvastatin Calcium 40 MG TAB PO SCH (20:11)
[2017-12-04 03:35] LABS: #Eosinphils 0.1 thou/uL (0.0-0.7); #Lymphocytes 1.5 thou/uL (1.20-3.40); #Monocytes 1.5 thou/uL (0.11-0.59); #Neutrophils 10.8 thou/uL (1.40-6.50); %Basophils 0.3 % (0.0-1.0); %Eosinophils 0.6 % (0.0-10.0); %Lymphocytes 10.4 % (21.0-51.0); %Monocytes 10.9 % (0.0-10.0); %Neutrophils 77.7 % (42.0-75.0); Hemoglobin 12.1 g/dL (14.0-18.0); Mean Corpuscular Hemoglobin 32.3 pg (27.0-31.0); Mean Corpuscular Volume 97.8 fL (78.0-98.0); Platelet Count 231 thou/uL (130-400); Red Blood Cell (RBC) Count 3.74 mill/uL (4.70-6.10); White Blood Cell (WBC) Count 13.9 thou/uL (4.8-10.8)
[2017-12-04 03:51] LABS: Anion Gap 9 mmol/L (10-20); BUN (Urea Nitrogen) 12 mg/dL (8.4-25.7); Calc. Creatinine Clearance 171 mL/min (70-130); Calcium 8.8 mg/dL (7.8-10.44); Carbon Dioxide 29 mmol/L (22-29); Chloride 107 mmol/L (98-107); Estimated GFR-MDRD Greater than 90; Glucose 108 mg/dL (70-105); Potassium 3.9 mmol/L (3.5-5.1); Sodium 141 mmol/L (136-145)
[2017-12-04] MEDS: Potassium Chloride 20 MEQ/100 ML PREMIX BAG IVPB PRN (03:55)
[2017-12-04] MEDS: Ketorolac Tromethamine 30 MG/ML VIAL IVP SCH ×4 (05:11→23:51)
--- NOTE | 2017-12-04 07:55 | RAD ---
CHEST 1 VIEW: HISTORY: Chest surgery. Followup. COMPARISON: 12/03/2017. FINDINGS: Cardiac silhouette is magnified by projection. Pulmonary vasculature upper limits of normal. Left b asilar atelectasis and postoperative changes in the mediastinum are again demonstrated. Left subclav aaron central venous catheter unchanged. No evidence of pneumothorax. IMPRESSION: Stable postoperative appearance of the chest. POS: [facility]
[2017-12-04] MEDS ORDERED: Furosemide 40 MG/4 ML VIAL SLOW IVP SCH (09:30)
--- NOTE | 2017-12-04 10:10 | PRG ---
DATE OF SERVICE: 12/04/2017 Postop day #1 from 3-vessel coronary bypass graft. SUBJECTIVE: The patient is feeling better. Complains of some sternal chest pain, incisional pain. Denies shortness of breath, denies palpitations. He is ambulating in the room with little difficulty . No nausea or vomiting. Appetite is good. OBJECTIVE: VITAL SIGNS: Temperature 99.1, pulse of 88, respirations 14, blood pressure 123/85, pulse ox 97% on room air. GENERAL: He is awake and alert, in no acute distress. Speech is clear. NECK: Supple. SKIN: Chest wall with incision clean and dry on the dressing. ABDOMEN: Soft. EXTREMITIES: With no edema. LABORATORY DATA: White blood cell count down to 13,900, hemoglobin and hematocrit 12.1 and 36.6, kurtis telets of 231. Sodium 141, potassium 3.9, chloride 107, CO2 of 29, BUN and creatinine 12 and 0.66. GFR greater than 90. Accu-Cheks of 93, 162, 271, 144. Chest x-ray this morning revealed stable post op chest. ASSESSMENT AND PLAN: This is a 51-year-old gentleman now status post 3-vessel coronary bypass graft and doing well. 1. For the postop care as per Cardiovascular Surgery, outpatient cardiac rehabilitation has already been scheduled. 2. Coronary artery disease, he is continuing on a statin, ANANYA inhibitor and anticoagulant. 3. Type 2 diabetes. I will continue his medications. He seems to be much better controlled with di rect dietary restrictions. 4. Recent substance abuse with cocaine, alcohol, and marijuana. He is no longer having withdrawal s ymptoms. He is on Librium p.r.n. and p.r.n. alcohol to prevent withdrawals.
[2017-12-04] MEDS: BEER 1 CAN PO SCH ×3 (10:17→18:15)
[2017-12-04] MEDS: Docusate 100 MG CAP PO SCH ×2 (10:18→20:34)
[2017-12-04] MEDS: Aspirin 325 MG TAB PO SCH (10:18)
[2017-12-04] MEDS: HYDROcodone/Acetaminophen 5/325 mg Tablet PO PRN (10:19)
[2017-12-04] MEDS: Insulin Regular 300 UNITS/3 ML VIAL SC PRN ×3 (11:43→20:33)
[2017-12-04] MEDS: Sodium Chloride 0.9% 1,000 ML IV SCH (12:11)
[2017-12-04] MEDS: Atorvastatin Calcium 40 MG TAB PO SCH (20:34)
[2017-12-05] MEDS: HYDROcodone/Acetaminophen 5/325 mg Tablet PO PRN (00:34)
[2017-12-05 04:19] VITALS: TEMP 98.1
[2017-12-05] MEDS: Ketorolac Tromethamine 30 MG/ML VIAL IVP SCH (05:47)
[2017-12-05] MEDS: Docusate 100 MG CAP PO SCH (08:02)
[2017-12-05] MEDS: Insulin Regular 300 UNITS/3 ML VIAL SC PRN (08:02)
[2017-12-05] MEDS: Aspirin 325 MG TAB PO SCH (08:02)
--- NOTE | 2017-12-05 08:54 | PRG ---
DATE OF SERVICE: 12/05/2017 Postop day #2 from 3-vessel coronary bypass graft. SUBJECTIVE: The patient had a good day yesterday. He is tolerating cardiac rehab, ambulating in the hallway up to 500 feet. Some sternal chest pain and incisional pain, but no shortness of breath, ch est pain with ambulation. No palpitations. No nausea or vomiting. His appetite is good. He denies tremors. He did drink 2 beers yesterday to prevent withdrawals. OBJECTIVE: VITAL SIGNS: Temperature 98.1, pulse of 76 and regular, respirations 12-15, blood pressure 121/85, p ulse ox is 99% on room air. Telemetry monitoring reveals no PVCs. GENERAL: He is awake and alert, in no acute distress. Speech is clear. HEENT: Mucosa is moist. NECK: Supple. HEART: Regular rate and rhythm. LUNGS: Clear bilaterally. Chest wall with incision which is clean, dry and intact. [place] are in place. ABDOMEN: Soft. EXTREMITIES: No edema. LABORATORY DATA: Nothing new from today. Accu-Cheks of 143, 132, 144. ASSESSMENT AND PLAN: This is a 51-year-old gentleman with coronary artery disease, status post 3-ves lena coronary bypass graft. 1. Postop care as per CV Surgery. Continue to plan for outpatient cardiac rehab. Discharge home wh en okay with Surgery. 2. Coronary artery disease. We will continue statin, ANANYA inhibitor and anticoagulant. 3. Type 2 diabetes. Continue current regimen with meds and dietary restrictions. 4. Recent substance abuse, withdrawal symptoms have resolved. He is not needing Librium. Instructe d to continue to abstain. DISPOSITION: Home when okay with Surgery.
--- NOTE | 2017-12-05 09:02 | RAD ---
PORTABLE CHEST: Date: 12/05/17 HISTORY: Postop sternotomy follow-up. COMPARISON: 12/04/17. FINDINGS: Heart size is mildly prominent with postop sternotomy changes. Central line is unchanged. CP angles a re poorly delineated, possibly representing atelectasis or small effusions. Lungs are otherwise clear . IMPRESSION: No acute interval change. POS: [facility]
[2017-12-05 10:46] LABS: Actual Bicarbonate (HCO3a) 23.7 mEq/L (22-28); Analyzer IN Cardio OR; CO2 Tension 35.7 mmHg (35.0-45.0); Calcium, Ionized 1.17 mmol/L (1.12-1.30); Carboxyhemoglobin (COHb) 0.6 gm% (0.0-3.0); Hemoglobin (Hb) 14.7 g/dL (14.0-18.0); O2 Tension (PaO2) 400.8 mmHg (80.0-100.0); Puncture Site ALINE; pH, Arterial 7.44 (7.35-7.45)
[2017-12-05 11:00] VITALS: BP 133/87
--- NOTE | 2017-12-05 13:13 | DIS ---
DATE OF ADMISSION: 11/27/2017 DATE OF DISCHARGE: 12/05/2017 PRINCIPAL DIAGNOSIS: Coronary artery disease with non-ST elevation myocardial infarction. SECONDARY DIAGNOSES: Substance abuse, hypertension, and diabetes. PROCEDURES PERFORMED: Cardiac catheterization 12/01/2017, coronary artery bypass grafting x3 with le ft internal mammary artery to the LAD and reverse greater saphenous vein grafts from the aorta to the first diagonal and the second obtuse marginal 12/02/2017. HISTORY OF PRESENT ILLNESS/HOSPITAL COURSE: The patient is a 51-year-old diabetic man with hypertens ion who presented with prolonged chest pain, nausea and vomiting after binge of drinking and using co laura and smoking marijuana. He ruled in for myocardial infarction by enzymes. He failed to show an y evidence of withdrawal over the next few days. He underwent cardiac catheterization which showed s ome trivial compromise of a fairly large PDA. No compromise of the large first obtuse marginal, but extensive LAD diagonal disease and occlusion of a small OM2. He had mildly decreased or low normal L VEF with an area of inferoapical akinesis. He underwent surgical revascularization using a pedicled left AUBREY to his LAD and veins to his first diagonal and his second obtuse marginal, both of which pro ness to be small, but good quality vessels. He was extubated the day of surgery and only had a modest amount of chest tube output overnight. He did well over the course of the subsequent few days and i s now being discharged home. I have had a discussion with him about some implications of his substan ce abuse, even in the short term with cautions about the pharmacologic effects of cocaine on the vasc ulature and the heart and the small but real potential for addiction to tramadol and potential for se izures if abused. He volunteered an intention to join a 12-step program. I will plan on seeing him in the office in around 2 weeks and have written a prescription for tramadol as needed for pain.
[2017-12-06 09:03] LABS: Actual Bicarbonate (HCO3a) 26.4 mEq/L (22-28); Analyzer IN Cardio OR; Base Excess (BEa) -0.4 mEq/L (-2.0 to +3.0); CO2 Tension 52.5 mmHg (35.0-45.0); Calcium, Ionized 1.11 mmol/L (1.12-1.30); Carboxyhemoglobin (COHb) 0.6 gm% (0.0-3.0); Hemoglobin (Hb) 12.1 g/dL (14.0-18.0); O2 Tension (PaO2) 403.5 mmHg (80.0-100.0); Potassium - ABG Lab 4.05 mmol/L (3.70-5.30); pH, Arterial 7.32 (7.35-7.45)
[2017-12-06 09:03] LABS: Actual Bicarbonate (HCO3v) 26 mEq/L (22-28); Analyzer IN Cardio OR; Base Excess -2.1 mEq/L (-2.0 to +3.0); Chloride (ABG LAB) 101 mmol/L (98-106); Hemoglobin (Hb) 11.9 g/dL (13.1-17.2); Potassium - ABG Lab 3.75 mmol/L (3.70-5.30); Sodium 131.3 mmol/L (133-146); pH (venous) 7.27 (7.32-7.43)
[2017-12-06 09:03] LABS: Actual Bicarbonate (HCO3a) 21.6 mEq/L (22-28); Analyzer IN Cardio OR; Base Excess (BEa) -2.4 mEq/L (-2.0 to +3.0); Carboxyhemoglobin (COHb) 0.3 gm% (0.0-3.0); O2 Tension (PaO2) 152.5 mmHg (80.0-100.0); Potassium - ABG Lab 3.62 mmol/L (3.70-5.30); pH, Arterial 7.41 (7.35-7.45)
[2017-12-06 09:04] LABS: Analyzer IN Cardio OR; Base Excess (BEa) -0.5 mEq/L (-2.0 to +3.0); CO2 Tension 34.4 mmHg (35.0-45.0); Calcium, Ionized 1.15 mmol/L (1.12-1.30); Carboxyhemoglobin (COHb) 0.6 gm% (0.0-3.0); Hemoglobin (Hb) 14.1 g/dL (14.0-18.0); O2 Tension (PaO2) 440.4 mmHg (80.0-100.0); Potassium - ABG Lab 3.48 mmol/L (3.70-5.30); pH, Arterial 7.44 (7.35-7.45)
[2017-12-06 09:04] LABS: Actual Bicarbonate (HCO3a) 23.4 mEq/L (22-28); Analyzer IN Cardio OR; Base Excess (BEa) -3.7 mEq/L (-2.0 to +3.0); CO2 Tension 51.1 mmHg (35.0-45.0); Calcium, Ionized 1.12 mmol/L (1.12-1.30); Carboxyhemoglobin (COHb) 0.3 gm% (0.0-3.0); Hemoglobin (Hb) 12.1 g/dL (14.0-18.0); Potassium - ABG Lab 3.82 mmol/L (3.70-5.30); pH, Arterial 7.28 (7.35-7.45)
[2017-12-06 09:05] LABS: Analyzer IN Cardio OR; Base Excess (BEa) 0.9 mEq/L (-2.0 to +3.0); Calcium, Ionized 1.14 mmol/L (1.12-1.30); Carboxyhemoglobin (COHb) 0.5 gm% (0.0-3.0); Hemoglobin (Hb) 14.1 g/dL (14.0-18.0); O2 Tension (PaO2) 441.5 mmHg (80.0-100.0); Potassium - ABG Lab 3.56 mmol/L (3.70-5.30); pH, Arterial 7.47 (7.35-7.45)
[2017-12-06 09:08] LABS: Puncture Site ALINE
[2017-12-06 09:08] LABS: Puncture Site ALINE
[2017-12-06 09:08] LABS: Puncture Site ALINE
[2017-12-06 09:09] LABS: Puncture Site ALINE
[2017-12-06 09:10] LABS: Puncture Site ALINE
== END 2017-12-05 12:26 | disposition home or self-care (01) | DRG 234 ==
LOC: ERS 02:59 → 2NO 04:13 → CCU 12-02 12:22
PROVIDERS: ADMIT Family Medicine; ATTEND Family Medicine
PROC: 021109W Bypass Coronary Artery, Two Arteries from Aorta with Autologous Venous Tissue, Open Approach (ICD-10-PCS; principal; 2017-12-01)
PROC: 4A023N7 Measurement of Cardiac Sampling and Pressure, Left Heart, Percutaneous Approach (ICD-10-PCS; 2017-12-01)
PROC: 02100Z9 Bypass Coronary Artery, One Artery from Left Internal Mammary, Open Approach (ICD-10-PCS; 2017-12-01)
PROC: 06BQ4ZZ Excision of Left Saphenous Vein, Percutaneous Endoscopic Approach (ICD-10-PCS; 2017-12-01)
PROC: B2111ZZ Fluoroscopy of Multiple Coronary Arteries using Low Osmolar Contrast (ICD-10-PCS; 2017-12-01)
PROC: B2151ZZ Fluoroscopy of Left Heart using Low Osmolar Contrast (ICD-10-PCS; 2017-12-01)
PROC: 5A1221Z Performance of Cardiac Output, Continuous (ICD-10-PCS; 2017-12-01)
DX: I21.4 Non-ST elevation (NSTEMI) myocardial infarction (principal); I25.10 Atherosclerotic heart disease of native coronary artery without angina pectoris; Z91.14 Patient's other noncompliance with medication regimen; I10 Essential (primary) hypertension; E11.9 Type 2 diabetes mellitus without complications; E78.00 Pure hypercholesterolemia, unspecified; F17.210 Nicotine dependence, cigarettes, uncomplicated; F14.10 Cocaine abuse, uncomplicated; F10.10 Alcohol abuse, uncomplicated; F41.8 Other specified anxiety disorders; Z86.73 Personal history of transient ischemic attack (TIA), and cerebral infarction without residual deficits
CPT/HCPCS: 36415; 36416; 71045; 80048; 80053; 80061; 80306; 80307; 82550; 82553; 82565; 82805; 83036; 84484; 85014; 85018; 85025; 85049; 85610; 85730; 86850; 86900; 86901; 90471; 90732; 93005; 93010; 93306; 93458; 93798; 94002; 94760; 96361; 96372; 96374; 96375; 99152; A4216; C1769; C9113; G0009; J1642; J1644; J1650; J1815; J1885; J1940; J2001; J2060; J2150; J2250; J2270; J2405; J2440; J2550; J2704; J2720; J3010; J3370; J3411; J3475; J3480; J7042; J7050; P9045; S0017; S0028

== ENCOUNTER 2017-12-14 15:09 | Observation (INO) | payer SELFPAY ==
[2017-12-14 15:39] LABS: #Basophils 0.1 thou/uL (0.0-0.2); #Eosinphils 0.7 thou/uL (0.0-0.7); #Lymphocytes 1.9 thou/uL (1.20-3.40); #Monocytes 1.1 thou/uL (0.11-0.59); %Basophils 0.6 % (0.0-1.0); %Eosinophils 4.2 % (0.0-10.0); %Lymphocytes 11.5 % (21.0-51.0); %Monocytes 6.3 % (0.0-10.0); %Neutrophils 77.5 % (42.0-75.0); Hemoglobin 13.2 g/dL (14.0-18.0); Mean Corpuscular HGB CONC 33.2 g/dL (32.0-36.0); Mean Corpuscular Hemoglobin 31.8 pg (27.0-31.0); Mean Corpuscular Volume 95.8 fL (78.0-98.0); Mean Platelet Volume 7.2 fL (7.4-10.4); Platelet Count 798 thou/uL (130-400); RBC Distribution Width 11.9 % (11.5-14.5); Red Blood Cell (RBC) Count 4.14 mill/uL (4.70-6.10); White Blood Cell (WBC) Count 16.8 thou/uL (4.8-10.8)
[2017-12-14] MEDS ORDERED: Nitroglycerin 2% Ointment 1 INCH/1 GM Packet ONE (15:56)
[2017-12-14 16:02] LABS: ALT (SGPT) 22 U/L (8-55); AST (SGOT) 20 U/L (5-34); Albumin 3.9 g/dL (3.5-5.0); Alkaline Phosphatase 94 U/L (40-150); Anion Gap 10 mmol/L (10-20); BUN (Urea Nitrogen) 10 mg/dL (8.4-25.7); Bilirubin, Total 0.7 mg/dL (0.2-1.2); CK (CPK) 67 U/L (30-200); Calc. Creatinine Clearance 0 mL/min (70-130); Calcium 9.7 mg/dL (7.8-10.44); Carbon Dioxide 31 mmol/L (22-29); Chloride 99 mmol/L (98-107); Estimated GFR-MDRD 85; Globulin 3.6 g/dL (2.4-3.5); Glucose 198 mg/dL (70-105); Lipase 92 U/L (8-78); Protein, Total 7.5 g/dL (6.0-8.3); Sodium 136 mmol/L (136-145)
[2017-12-14 16:05] LABS: CKMB 1.1 ng/mL (0-6.6); Troponin I 0.035 ng/mL (< 0.028)
--- NOTE | 2017-12-14 16:39 | RAD ---
AP VIEW OF THE CHEST: 12/14/17 INDICATION: Status post CABG with chest pain. FINDINGS: There are small bilateral pleural effusions, left greater than right. There is increased opacity in t he left lung base which may reflect atelectasis or pneumonia. There is cardiomegaly with mild pulmona ry vascular congestion. There are midline sternotomy changes. Left subclavian central venous catheter has been removed since 12/05/17. No acute osseous abnormality is evident. IMPRESSION: 1. Findings suggesting mild CHF. 2. Left basilar air space opacity may reflect atelectasis or pneumonia. Recommend correlation. POS: [facility]
[2017-12-14] MEDS ORDERED: Furosemide 20 MG/2 ML VIAL ONE (16:59)
[2017-12-14] MEDS ORDERED: Vancomycin HCl 1.25 GM in Sodium Chloride 0.9% 250 ML 250 ML IVPB SCH (17:00)
[2017-12-14] MEDS ORDERED: Cefepime 2 GM in Sodium Chloride 0.9% 100 ML IVPB SCH (17:00)
[2017-12-14] MEDS ORDERED: Nitroglycerin 0.4 MG TAB (25 Tab Bottle) SL PRN (18:50)
[2017-12-14] MEDS ORDERED: HumaLOG 300 UNITS/3 ML VIAL SC PRN ×2 (18:51→19:03)
[2017-12-14] MEDS ORDERED: hydrALAZINE 25 MG TAB PO PRN (18:51)
[2017-12-14] MEDS ORDERED: Acetaminophen 325 MG TAB PO PRN (18:53)
[2017-12-14 18:54] LABS: Bilirubin Negative (Negative); Blood, Urine Negative (Negative); Clarity CLEAR (Clear); Glucose, Urine (Dipstick) 100 mg/dL (Negative); Leukocyte Negative (Negative); Nitrite Negative (Negative); Protein, Urine (Dipstick) Negative (Neg-Trace); Specific Gravity, Urine 1.007 (1.002-1.036); Urobilinogen 0.2 mg/dL (0.2-1.0); pH, Urine 7.5 (5.0-9.0)
[2017-12-14 18:56] LABS: Troponin I 0.035 ng/mL (< 0.028)
[2017-12-14] MEDS ORDERED: Dextrose 5% in Water 1,000 ML IV PRN (19:03)
[2017-12-14] MEDS ORDERED: Dextrose 50% Abboject 50 ML SYRINGE IVP PRN (19:03)
[2017-12-14] MEDS ORDERED: traMADol HCl 50 MG TAB PO PRN (20:16)
[2017-12-14] MEDS: Carvedilol 6.25 MG TAB PO SCH (20:28)
[2017-12-14] MEDS: Atorvastatin Calcium 40 MG TAB PO SCH (20:30)
[2017-12-14 21:33] LABS: Troponin I 0.033 ng/mL (< 0.028)
--- NOTE | 2017-12-14 23:42 | HP ---
DATE: 12/14/2017 CHIEF COMPLAINT: Cough and fever, shortness of breath. HISTORY OF PRESENT ILLNESS: This is a 51-year-old gentleman with recent admission for a non-ST elevation myocardial infarction, found to have 3-vessel cardiovascular disease and had a subsequent coronary artery bypass graft. He was discharged on 12/05/2017. He followed up in my office on 12/07/2017 and was doing well. He did have a dry cough at that time with normal lung exam. No fevers. He was given cough medicines at that time and I told to call if his cough worsens. He called today and scheduled a followup appointment in my office due to worsening cough and left arm pain. When the pain continued to worsen, he changed his mind and presented to the emergency department for further evaluation. In the ED, he was found to have abnormal chest x-ray consistent with mild CHF and left basilar airspace opacity atelectasis versus pneumonia. He did have elevated white blood cell count and copious sputum production consistent with pneumonia. He is now being admitted for further evaluation and treatment for pneumonia and status post coronary bypass graft, known coronary artery disease, type 2 diabetes, history of alcoholism and history of drug abuse. PAST MEDICAL HISTORY: Three-vessel coronary artery disease, status post coronary artery bypass graft, hypertension, hyperlipidemia, type 2 diabetes, history of alcohol abuse, history of cocaine use, last use before admission in 10/2017. History of marijuana use, history of CVA in 2013. PAST SURGICAL HISTORY: Recent coronary artery bypass graft in November 2017 and a recent coronary catheterization. ALLERGIES: No known drug allergies. MEDICATIONS: Aspirin 325 mg daily, carvedilol 12.5 mg daily, folic acid once daily, multivitamin daily, nitroglycerin p.r.n. chest pain, Januvia 50 mg daily , thiamine 100 mg daily, atorvastatin 40 mg daily, losartan 25 mg daily, metformin ER 500 mg once daily, Claritin 10 mg daily, benzonatate 200 mg daily. OTHER HOSPITALIZATIONS: CVA in 2016. FAMILY HISTORY: Father with diabetes. Mother unknown. Paternal grandfather with Alzheimer's and heart disease. Maternal grandfather with coronary artery disease. Maternal grandmother with brain cancer. SOCIAL HISTORY: Works for . He is . Occasional caffeine. Positive for regular alcohol use. Positive for drugs of abuse including cocaine and marijuana. REVIEW OF SYSTEMS: As per the history of present illness. He denies any recent fevers, has had occasional chills and night sweats over the past few days. They were worse when he was detoxing in the hospital during his last hospitalization. Cardiovascular: As per the history of present illness, no chest pain, but has had left arm pain this is resolved. Some shortness of breath. Pulmonary: Positive cough which is improved with the Lasix in the ED, no hemoptysis. Gastrointestinal: Denies nausea, vomiting, abdominal pain, melena, hematochezia. Genitourinary: Denies dysuria or hematuria. Neurologic : No weakness, seizures, or syncope. Musculoskeletal: Positive chest pain following his cardiac surgery. PHYSICAL EXAMINATION: VITAL SIGNS: Temperature 99.0, pulse 80-90, respirations 12-15, blood pressure elevated at 160/90, pulse ox 95-98% on room air. GENERAL: He is awake and alert. He appears comfortable but does get uncomfortable when he moves in bed with a chest wall pain. HEENT: Mucosa is moist. NECK: Supple, no JVD, adenopathy or bruits. HEART: Regular rate and rhythm. LUNGS: With no wheezes. He has occasional rhonchi at the left base. ABDOMEN: Soft, nontender, nondistended. CHEST WALL: With healing incision. No sign of infection. EXTREMITIES: No clubbing, cyanosis or edema. LABORATORY DATA: [place] [address], hemoglobin and hematocrit 13.2 and 39.6, platelets elevated at 798. Sodium 136, potassium 4.0 , chloride 99, CO2 of 31, BUN and creatinine 10 and 0.93 with a serum glucose of 198, calcium 9.7, AST and ALT are normal. Troponin I is slightly elevated at 0.035 but much lower than his baseline during his last hospitalization. Lipase was elevated at 92. IMAGING: Chest x-ray again reveals left basilar airspace opacity suspicious for pneumonia with mild CHF. ASSESSMENT AND PLAN: This is a 51-year-old gentleman with known type 2 diabetes , hypertension, hyperlipidemia, coronary artery disease status post coronary artery bypass graft, now with acute pneumonia. Due to his recent hospitalization, we will treat for hospital acquired pneumonia. He has already been started cefepime, gentamicin, and vancomycin in the ED and will continue this. 1. Coronary artery disease, possible mild congestive heart failure. We will continue low dose Lasix. Await cardiology evaluation. 2. Coronary artery disease, Dr. Villegas to follow as well during hospitalization. 3. Type 2 diabetes. We will continue oral meds and insulin sliding scale. 4. Hypertension. We will monitor closely, may add p.r.n. hydralazine if his blood pressure stays elevated. 5. History of alcohol and drug abuse. No signs of withdrawals and he has been sober for 3-4 days. Will monitor. MTDD
[2017-12-15 04:34] LABS: #Basophils 0.1 thou/uL (0.0-0.2); #Eosinphils 0.6 thou/uL (0.0-0.7); #Monocytes 0.9 thou/uL (0.11-0.59); #Neutrophils 11.1 thou/uL (1.40-6.50); %Basophils 0.8 % (0.0-1.0); %Eosinophils 4.2 % (0.0-10.0); %Lymphocytes 13.6 % (21.0-51.0); %Monocytes 6.2 % (0.0-10.0); %Neutrophils 75.4 % (42.0-75.0); Hemoglobin 12.2 g/dL (14.0-18.0); Mean Corpuscular HGB CONC 33.3 g/dL (32.0-36.0); Mean Corpuscular Hemoglobin 31.8 pg (27.0-31.0); Mean Corpuscular Volume 95.4 fL (78.0-98.0); Mean Platelet Volume 7.1 fL (7.4-10.4); Platelet Count 758 thou/uL (130-400); Red Blood Cell (RBC) Count 3.83 mill/uL (4.70-6.10); White Blood Cell (WBC) Count 14.7 thou/uL (4.8-10.8)
[2017-12-15 04:48] LABS: ALT (SGPT) 19 U/L (8-55); AST (SGOT) 16 U/L (5-34); Albumin 3.5 g/dL (3.5-5.0); Alkaline Phosphatase 75 U/L (40-150); Anion Gap 11 mmol/L (10-20); BUN (Urea Nitrogen) 13 mg/dL (8.4-25.7); Bilirubin, Total 0.7 mg/dL (0.2-1.2); Calc. Creatinine Clearance 128 mL/min (70-130); Calcium 9.2 mg/dL (7.8-10.44); Carbon Dioxide 30 mmol/L (22-29); Chloride 102 mmol/L (98-107); Estimated GFR-MDRD Greater than 90; Globulin 3.2 g/dL (2.4-3.5); Glucose 134 mg/dL (70-105); Potassium 3.7 mmol/L (3.5-5.1); Protein, Total 6.7 g/dL (6.0-8.3); Sodium 139 mmol/L (136-145)
[2017-12-15] MEDS ORDERED: Cefepime 2 GM in Sodium Chloride 0.9% 100 ML IVPB SCH (08:00)
--- NOTE | 2017-12-15 08:46 | PRG ---
DATE OF SERVICE: 12/15/2017 SUBJECTIVE: The patient is feeling some better. Cough is improved from yesterday. He is not short of breath. He is ambulating in the room without difficulty. Some incisional chest wall pain. Denie s nausea and vomiting. Denies tremors or anxiety or agitation. No signs of withdrawals. OBJECTIVE: VITAL SIGNS: Temperature 98.5, which is his T-max, pulse of 88, respirations 18-24, blood pressure 1 34/83, pulse ox is 92-95% on room air. GENERAL: He is awake and alert, in no acute distress. He is comfortable in bed. HEENT: Mucosa is moist. NECK: Supple. CHEST: Chest wall with incision clean, dry, and intact. No sign of infection. HEART: Regular rate and rhythm. LUNGS: Clear. No wheeze, rales or rhonchi. Some decreased breath sounds on the right side. ABDOMEN: Soft. EXTREMITIES: No clubbing, cyanosis or edema. LABORATORY DATA: White blood cell count down to 14.7 thousand from 16.8 thousand yesterday, hemoglob in and hematocrit 12.2 and 36.5, platelets of 758, sodium 139, potassium 3.7, chloride 102, CO2 30, B UN and creatinine 13.85 with a GFR greater than 90. Serum glucose is 134, calcium 9.2. Liver enzyme s are normal. Troponin 0.033, 0.035. Accu-Cheks of 128, 110. Blood cultures negative x24 hours. S putum cultures are pending. A repeat chest x-ray from this morning; Radiology reading is pending, but appears to be clearing from yesterday. ASSESSMENT AND PLAN: 1. This is a 51-year-old gentleman with a history of type 2 diabetes, hypertension, hyperlipidemia, history of alcohol and cocaine abuse, history of coronary artery disease status recent coronary bypas s graft, now with hospital acquired pneumonia. I will continue broad spectrum antibiotics with cefep yesika, Levaquin, and vancomycin. Continue to follow chest x-ray. If he continues to improve clinicall y, hopefully home tomorrow. 2. Coronary artery disease. Await cardiology evaluation, but likely to continue meds and outpatient cardiac rehabilitation. 3. Type 2 diabetes, stable. Continue oral medications and sliding scale. 4. History of alcohol abuse, no signs of withdrawal. I will continue to monitor.
[2017-12-15] MEDS ORDERED: Vancomycin HCl 1.25 GM in Sodium Chloride 0.9% 250 ML 300 ML IVPB SCH (09:00)
[2017-12-15] MEDS ORDERED: Vancomycin HCl 1.25 GM in Sodium Chloride 0.9% 250 ML 250 ML IVPB SCH (09:00)
[2017-12-15] MEDS ORDERED: Aspirin 325 MG TAB PO SCH (09:00)
[2017-12-15] MEDS: Folic Acid 1 MG TAB PO SCH (09:26)
[2017-12-15] MEDS: Losartan 25 MG TAB PO SCH (09:26)
[2017-12-15] MEDS: Carvedilol 6.25 MG TAB PO SCH ×2 (09:26→21:03)
[2017-12-15] MEDS: Multivit, Therapeutic 1 TAB PO SCH (09:26)
[2017-12-15] MEDS: Aspirin 325 MG TAB PO SCH (09:26)
[2017-12-15] MEDS: Alogliptin 6.25 MG TAB PO SCH (09:27)
--- NOTE | 2017-12-15 09:55 | RAD ---
PORTABLE CHEST: HISTORY: Pneumonia. COMPARISON: Prior day's exam. FINDINGS: Heart size is enlarged. The right lung is clear. The retrocardiac region is difficult to assess. T here is some increased density in this region. This could represent atelectasis with effusion or pos sibly infiltrate. Findings appear stable. IMPRESSION: Stable exam. POS: T[facility]
[2017-12-15] MEDS: Cefepime 2 GM in Sodium Chloride 0.9% 100 ML IVPB SCH ×2 (10:45→21:04)
[2017-12-15] MEDS ORDERED: Budesonide 0.25 MG/2 ML NEB ONE (11:24)
[2017-12-15] MEDS: Vancomycin HCl 1.25 GM in Sodium Chloride 0.9% 250 ML 250 ML IVPB SCH ×2 (11:28→23:12)
--- NOTE | 2017-12-15 13:05 | CON ---
DATE OF CONSULTATION: 12/15/2017 REASON FOR CONSULTATION: Shortness of breath. HISTORY OF PRESENT ILLNESS: Mr. Barriga is a pleasant 51-year-old gentleman who comes to the hospital for increased shortness of breath and cough. He had an admission recently for chest pain a nd elevated troponins. He was diagnosed with non-ST elevation CA because he had alcohol in his blood stream. We waited for about a week to see if he would go into withdrawals before doing any procedure s. He underwent heart catheterization and was found to have a complex LAD and diagonal lesion that r equired bypass surgery for revascularization. He had this done about a week ago. He comes back as h e has been slowly getting a little more shortwinded in last 2 days. He has got this cough from his s urgery which is just getting better. No fevers or chills. He denies any chest pain except for just incisional pain. PAST MEDICAL HISTORY: 1. Coronary artery disease as above. 2. Alcohol abuse. 3. Substance abuse, cocaine and marijuana. 4. Hypertension. 5. Hyperlipidemia. 6. Type 2 diabetes. 7. CVA in 2013. PAST SURGICAL HISTORY: 1. CABG x2 in November and earlier this month. 2. Heart catheterization earlier this month. OUTPATIENT MEDICATIONS: 1. Aspirin 325 a day. 2. Carvedilol 12.5 mg b.i.d. 3. Folic acid. 4. Multivitamin daily. 5. Nitroglycerin p.r.n. 6. Januvia. 7. Thiamine. 8. Atorvastatin 40 mg every day. 9. Losartan 25 mg. 10. Metformin. 11. Claritin. 12. Benzonatate. ALLERGIES: No known drug allergies. SOCIAL HISTORY: Alcohol use daily, cocaine and marijuana use in the past. He states none since surg linda. FAMILY HISTORY: Noncontributory. REVIEW OF SYSTEMS: A 12-point review of systems was done and it is all negative unless stated in the history of present illness. PHYSICAL EXAMINATION: VITAL SIGNS: Temperature 97.7, pulse 86, respiration rate 20, satting 92% on room air, blood pressur e 106/64. GENERAL: Awake, alert, oriented x3, in no distress. HEENT: Normocephalic, atraumatic. NECK: Supple. LUNGS: Have reduced breath sounds bilaterally with dullness. CARDIOVASCULAR: S1, S2, no S3, S4. ABDOMEN: Soft, positive bowel sounds. EXTREMITIES: No edema. SKIN: Warm and dry. LABORATORY DATA: Laboratory work was reviewed. White count of 16 on admission, hemoglobin of 13, he matocrit 39, platelet count of 798. Chemistries were unremarkable. Troponins were 0.03, 0.03, 0.03. UA was negative for an infection. IMAGING DATA: Chest x-ray showed findings of CHF, possible right lower lobe pneumonia versus atelect asis. ASSESSMENT: 1. Acute on chronic diastolic heart failure. 2. Possible pneumonia. 3. Coronary artery disease, stable. 4. Status post coronary artery bypass graft x2 a week ago. PLAN: 1. Would give one dose of IV Lasix today at 40 mg once and continue with just 40 mg p.o. daily from now on for at least the next week or two. 2. His troponin elevation is consistent with just demand ischemia. This could be related to his inf ection, but it could also be related to LV dysfunction, so we will get an echocardiogram to assess hi s EF as in the OR, he had an EF of about 40% with inferior . 3. We will get a urine drug screen to make sure that he is not doing any more substances that may be making this worse. 4. Continue antibiotics per primary team. 5. We will follow.
[2017-12-15] MEDS ORDERED: Furosemide 40 MG/4 ML VIAL SLOW IVP SCH (13:30)
[2017-12-15 14:02] LABS: Amphetamine Not Detected (NotDetected); Barbiturates Screen Not Detected (NotDetected); Benzodiazepine Screen Detected (NotDetected); Cocaine Metabolite Screen Not Detected (NotDetected); Medtox Control Line Valid? VALID (VALID); Medtox Reader # READER 1; Methadone Not Detected (NotDetected); Methamphetamine Not Detected (NotDetected); Opiate Screen Not Detected (NotDetected); Oxycodone Screen Not Detected (NotDetected); Phencyclidine (PCP) Not Detected (NotDetected); THC/Cannabinoid Screen Not Detected (NotDetected); Tricyclic Screen Not Detected (NotDetected)
[2017-12-15] MEDS: Atorvastatin Calcium 40 MG TAB PO SCH (21:03)
[2017-12-16] MEDS: Cefepime 2 GM in Sodium Chloride 0.9% 100 ML IVPB SCH ×2 (04:16→11:23)
[2017-12-16 05:05] LABS: #Basophils 0.1 thou/uL (0.0-0.2); #Eosinphils 0.5 thou/uL (0.0-0.7); #Lymphocytes 1.7 thou/uL (1.20-3.40); #Monocytes 0.8 thou/uL (0.11-0.59); #Neutrophils 7.3 thou/uL (1.40-6.50); %Basophils 0.8 % (0.0-1.0); %Eosinophils 4.9 % (0.0-10.0); %Lymphocytes 16.5 % (21.0-51.0); %Neutrophils 69.8 % (42.0-75.0); Hemoglobin 12.3 g/dL (14.0-18.0); Mean Corpuscular HGB CONC 32.2 g/dL (32.0-36.0); Mean Corpuscular Hemoglobin 30.7 pg (27.0-31.0); Mean Corpuscular Volume 95.6 fL (78.0-98.0); Mean Platelet Volume 7.3 fL (7.4-10.4); Platelet Count 677 thou/uL (130-400); White Blood Cell (WBC) Count 10.5 thou/uL (4.8-10.8)
[2017-12-16 05:21] LABS: ALT (SGPT) 17 U/L (8-55); AST (SGOT) 16 U/L (5-34); Albumin 3.5 g/dL (3.5-5.0); Alkaline Phosphatase 78 U/L (40-150); Anion Gap 10 mmol/L (10-20); BUN (Urea Nitrogen) 13 mg/dL (8.4-25.7); Bilirubin, Total 0.7 mg/dL (0.2-1.2); Calc. Creatinine Clearance 115 mL/min (70-130); Calcium 9.3 mg/dL (7.8-10.44); Carbon Dioxide 30 mmol/L (22-29); Chloride 103 mmol/L (98-107); Estimated GFR-MDRD 83; Glucose 151 mg/dL (70-105); Potassium 3.4 mmol/L (3.5-5.1); Protein, Total 6.5 g/dL (6.0-8.3); Sodium 140 mmol/L (136-145)
[2017-12-16 06:14] VITALS: BMI 29.7
[2017-12-16] MEDS: Alogliptin 6.25 MG TAB PO SCH (08:34)
[2017-12-16] MEDS: Folic Acid 1 MG TAB PO SCH (08:34)
[2017-12-16] MEDS: Losartan 25 MG TAB PO SCH (08:35)
[2017-12-16] MEDS: Carvedilol 6.25 MG TAB PO SCH (08:35)
[2017-12-16] MEDS: Aspirin 325 MG TAB PO SCH (08:35)
[2017-12-16] MEDS: Multivit, Therapeutic 1 TAB PO SCH (08:35)
[2017-12-16] MEDS ORDERED: Furosemide 40 MG TAB PO SCH (09:00)
--- NOTE | 2017-12-16 09:30 | RAD ---
PORTABLE AP CHEST XRAY: DATE: 12/16/2017. HISTORY: Pneumonia. COMPARISON: 12/15/2017. FINDINGS: Postsurgical changes related to CABG are again noted. Cardiac silhouette is magnified by projection. There is blunting of the left lateral costophrenic angle which may be related to tiny left pleural effusion and atelectasis in addition to overlying soft tissue density. Lungs are otherwise clear. T here has been no significant interval change from the prior study. IMPRESSION: Persistent blunting of the left lateral costophrenic angle which may be related to tiny left pleural effusion and atelectasis, but pleural and parenchymal scarring left lung base is a possibility. POS: VALERY
[2017-12-16 10:44] LABS: Vancomycin, Trough 9.5 ug/mL
--- NOTE | 2017-12-16 12:54 | PDOC.CTH ---
Cardiology Progress Note - Subjective The pt seen and examined. No overnight events. No cardiac complaints. He stated he can breath much better today. - Objective Vital Signs Temp Pulse Resp BP BP Pulse Ox 12/16/17 11:00 97.4 F L 76 24 H 140/86 93 L 12/16/17 08:35 150/86 H 12/16/17 07:23 98.6 F 82 16 150/86 H 94 L Weight 195 lb 11.2 oz 12/15/17 12/16/17 12/17/17 06:59 06:59 06:59 Intake Total 730 2700 Output Total 1225 2110 Balance -495 590 - Physical Examination General/Neuro: alert & oriented x3 Neck: no JVD present Lungs: CTA Heart: RRR Abdomen: soft Extremities: other: (No edema) - Telemetry Telemetry Rhythm: SR - Labs Result Diagrams: 12/16/17 04:15 12/16/17 04:15 Troponin/CKMB CK-MB (CK-2) 1.1 ng/mL (0-6.6) 12/14/17 15:26 Troponin I 0.033 ng/mL (< 0.028) H 12/14/17 21:03 - Assessment/Plan 1. Acute on Chronic Diastolic HF - 2. CAD with CABG x2 in 11/2017 - stable; on ASA, Statin, ARB, and BBlocker. 3. HTN - stable 4. Hyperlipidemia - on Statin 5. DM type 2 - managed by PCP 6. Hx of CVA in 2013 - stable 7. ETOH and Substance abuse - ETOH and substance cessation education given to the pt and . He stated he will follow up AAA meeting. MAR reviewed Review of Systems - Review of Systems Constitutional: reports: no symptoms reported EENTM: reports: no symptoms reported Respiratory: reports: no symptoms reported Cardiac (ROS): reports: no symptoms reported ABD/GI: reports: no symptoms reported : reports: no symptoms reported Musculoskeletal: reports: no symptoms reported Skin: reports: no symptoms reported Neurological: reports: no symptoms reported
[2017-12-16] MEDS ORDERED: Vancomycin HCl 1.75 GM in Sodium Chloride 0.9% 500 ML IVPB SCH (13:00)
[2017-12-16] MEDS: Vancomycin HCl 1.25 GM in Sodium Chloride 0.9% 250 ML 250 ML IVPB SCH (13:51)
[2017-12-16 15:40] VITALS: BP 126/80; TEMP 98
--- NOTE | 2017-12-17 02:50 | DIS ---
DATE OF ADMISSION: 12/14/2017 DATE OF DISCHARGE: 12/16/2017 ADMISSION DIAGNOSES: Cough and shortness of breath. DISCHARGE DIAGNOSES: Right-sided pneumonia; acute on chronic congestive heart failure, status post c oronary artery bypass graft; coronary artery disease; type 2 diabetes; hypertension; history of drug and alcohol abuse. CONSULTATIONS: Dr. Villegas, Cardiology. PROCEDURES: Telemetry monitoring, rule out DC protocol, echocardiogram, chest x-ray, IV antibiotics. HOSPITAL COURSE: This is a 51-year-old gentleman who was recently admitted for acute DC after using cocaine and alcohol. He underwent his coronary artery bypass graft without complications. He did diallo ve to remain in the ICU longer due to potential withdrawal from his drugs and alcohol. He was discha rged in good condition. He has followed up in my office as an outpatient. He had developed slight c ough, which worsened over time. He presented to the emergency department and found to have right-alisson ed pneumonia with elevated white blood cell count and fever. He was also found to be in mild congest sade heart failure. He was admitted after being started on antibiotics for hospital-acquired pneumoni a. He was also given Lasix and was evaluated by Cardiology. Echocardiogram was done, which revealed mild left ventricular ejection fraction decreased as well as diastolic dysfunction. The patient imp roved rapidly. His chest x-ray continued to improve throughout his hospitalization and clinically im proved with less cough, less shortness of breath, and ambulating with less difficulty. Once Cardiolo gy cleared him, he was discharged home in good condition. He is to continue his Lasix and antibiotic s with close followup. DISCHARGE PHYSICAL EXAMINATION: VITAL SIGNS: Temperature 98.0, pulse is 78, respirations 20, blood pressure 126/80, pulse ox 93-94% on room air. GENERAL: He is awake, alert, in no acute distress. Speech is clear. NECK: Supple. HEART: Regular rate and rhythm. LUNGS: With rhonchi in the right side, otherwise clear, no wheezes. ABDOMEN: Soft. EXTREMITIES: With no edema. DISCHARGE LABORATORY DATA: Sodium 140, potassium 3.4, chloride 103, CO2 of 30, BUN and creatinine 13 and 0.95 with serum glucose of 151. White blood cell count down to 10.5, hemoglobin and hematocrit 12.3 and 38.2, platelets of 677. IMAGING: Again, echocardiogram revealed mild concentric left ventricular hypertrophy, ejection fract ion at 45-50%, grade 2-3 diastolic dysfunction. A followup chest x-ray revealed persistent blunting of the left lateral costophrenic angle, possibly tiny pleural effusion. DISCHARGE MEDICATIONS: Include Tylenol p.r.n., Januvia daily, aspirin 325 daily, Lipitor 40 mg daily , carvedilol 12.5 mg daily, Lasix 40 mg daily for 7 more days, Levaquin 750 mg once daily for 5 days, Cozaar 25 mg daily. FOLLOWUP INSTRUCTIONS: Patient is to follow up in my office next week and with Dr. Villegas in 1-2 [facility]. Follow up with Cardiovascular Surgery as directed and he is to initiate cardiac rehabilitation n ext week as well.
--- NOTE | 2017-12-24 12:03 | EKG ---
Test Reason : Blood Pressure : / mmHG Vent. Rate : 087 BPM Atrial Rate : 087 BPM P-R Int : 144 ms QRS Dur : 090 ms QT Int : 382 ms P-R-T Axes : 017 -26 117 degrees QTc Int : 459 ms Normal sinus rhythm Possible Left atrial enlargement Possible Anterior infarct , age undetermined T wave abnormality, consider lateral ischemia Abnormal ECG Confirmed by BRIGID HUDDLESTON, HELGA ([id number]), assignment desk editor BRIDGET PASCAL ([id number]) on 12/24/2017 12:03:13 PM Referred By: Confirmed By:HELGA RAINEY MD
== END 2017-12-16 18:05 | disposition home or self-care (01) ==
LOC: ERS 15:09 → 2SW 19:13 → INTOOBSV 12-15 08:06 → OBSVTOIN 12-15 08:06
PROVIDERS: ADMIT Family Medicine; ATTEND Family Medicine
DX: J18.9 Pneumonia, unspecified organism (principal); I11.0 Hypertensive heart disease with heart failure; I50.33 Acute on chronic diastolic (congestive) heart failure; F10.10 Alcohol abuse, uncomplicated; F12.10 Cannabis abuse, uncomplicated; F14.10 Cocaine abuse, uncomplicated; I25.10 Atherosclerotic heart disease of native coronary artery without angina pectoris; I25.2 Old myocardial infarction; E78.5 Hyperlipidemia, unspecified; E11.9 Type 2 diabetes mellitus without complications; Z86.73 Personal history of transient ischemic attack (TIA), and cerebral infarction without residual deficits; Z79.82 Long term (current) use of aspirin; Z79.84 Long term (current) use of oral hypoglycemic drugs; Z79.899 Other long term (current) drug therapy; Z95.1 Presence of aortocoronary bypass graft
CPT/HCPCS: 36415; 36416; 71045; 80053; 80202; 80306; 81003; 82553; 83690; 84484; 85025; 87040; 87070; 87086; 87205; 93005; 93306; 96365; 96366; 96367; 96375; 96376; G0378; J0692; J1580; J1940; J1956; J3370; J7050; J7626

== ENCOUNTER 2021-03-04 12:52 | Inpatient (IN) | payer SELFPAY ==
[2021-03-04 13:46] LABS: #Basophils 0.1 thou/uL (0.0-0.2); #Eosinphils 0.3 thou/uL (0.0-0.7); #Lymphocytes 1.2 thou/uL (1.20-3.40); #Monocytes 0.8 thou/uL (0.11-0.59); #Neutrophils 6.6 thou/uL (1.40-6.50); %Basophils 0.6 % (0.0-1.0); %Eosinophils 3.2 % (0.0-10.0); %Lymphocytes 13.3 % (21.0-51.0); %Monocytes 8.7 % (0.0-10.0); %Neutrophils 74.2 % (42.0-75.0); Hemoglobin 16.2 g/dL (14.0-18.0); Mean Corpuscular HGB CONC 32.6 g/dL (32.0-36.0); Mean Corpuscular Volume 95.3 fL (78.0-98.0); Mean Platelet Volume 8.1 fL (7.4-10.4); Platelet Count 296 thou/uL (130-400); RBC Distribution Width 11.9 % (11.5-14.5); Red Blood Cell (RBC) Count 5.22 mill/uL (4.70-6.10); White Blood Cell (WBC) Count 8.9 thou/uL (4.8-10.8)
[2021-03-04 14:01] LABS: ALT (SGPT) 13 U/L (8-55); AST (SGOT) 14 U/L (5-34); Albumin 3.7 g/dL (3.5-5.0); Alkaline Phosphatase 88 U/L (40-110); Anion Gap 11 mmol/L (10-20); BUN (Urea Nitrogen) 7 mg/dL (8.4-25.7); Bilirubin, Total 0.9 mg/dL (0.2-1.2); Calc. Creatinine Clearance 0 mL/min (70-130); Calcium 9.8 mg/dL (7.8-10.44); Carbon Dioxide 30 mmol/L (22-29); Chloride 98 mmol/L (98-107); Globulin 3.5 g/dL (2.4-3.5); Glucose 326 mg/dL (70-105); Potassium 3.3 mmol/L (3.5-5.1); Protein, Total 7.2 g/dL (6.0-8.3); Sodium 136 mmol/L (136-145)
[2021-03-04 15:16] LABS: Amphetamine Not Detected (NotDetected); Barbiturates Screen Not Detected (NotDetected); Benzodiazepine Screen Not Detected (NotDetected); Cocaine Metabolite Screen Detected (NotDetected); Methadone Not Detected (NotDetected); Methamphetamine Not Detected (NotDetected); Opiate Screen Not Detected (NotDetected); Oxycodone Screen Not Detected (NotDetected); Phencyclidine (PCP) Not Detected (NotDetected); THC/Cannabinoid Screen Not Detected (NotDetected); Tricyclic Screen Not Detected (NotDetected)
[2021-03-04] MEDS ORDERED: Aspirin Chewable 81 MG TAB ONE (15:23)
[2021-03-04 16:22] LABS: SARS-CoV-2 NAA Rapid Test Not Detected (NotDetected)
[2021-03-04] MEDS ORDERED: traMADol HCl 50 MG TAB PO PRN (17:09)
[2021-03-04] MEDS ORDERED: Nitroglycerin 0.4 MG TAB (25 Tab Bottle) SL PRN (17:09)
[2021-03-04] MEDS ORDERED: Ondansetron PF 4 MG/2 ML Vial IVP PRN (17:09)
[2021-03-04] MEDS ORDERED: Ondansetron ODT 4 MG TAB PO PRN (17:09)
[2021-03-04] MEDS ORDERED: Acetaminophen 325 MG TAB PO PRN (17:10)
[2021-03-04] MEDS ORDERED: Potassium Chloride 20 MEQ TAB PO SCH (17:15)
[2021-03-04] MEDS ORDERED: Enoxaparin Sodium 40 MG/0.4 ML SYRINGE SC SCH (17:15)
[2021-03-04 17:41] VITALS: BMI 32.5
[2021-03-04 18:42] LABS: Hemoglobin A1c 9.6 % (4.0-6.0)
[2021-03-04 18:48] LABS: Troponin I 0.037 ng/mL (< 0.028)
[2021-03-04] MEDS: Carvedilol 6.25 MG TAB PO SCH (20:22)
[2021-03-04] MEDS: Atorvastatin Calcium 40 MG TAB PO SCH (20:23)
[2021-03-04] MEDS ORDERED: Dextrose 50% Abboject 50 ML SYRINGE SLOW IVP PRN (21:00)
[2021-03-04] MEDS ORDERED: metFORMIN 500 MG TAB PO SCH (21:00)
[2021-03-04] MEDS ORDERED: Dextrose 5% in Water 1,000 ML IV PRN (21:00)
[2021-03-04] MEDS: HumaLOG 300 UNITS/3 ML VIAL SC PRN (21:14)
[2021-03-05 04:59] LABS: #Basophils 0.1 thou/uL (0.0-0.2); #Eosinphils 0.3 thou/uL (0.0-0.7); #Lymphocytes 1.6 thou/uL (1.20-3.40); %Basophils 0.5 % (0.0-1.0); %Eosinophils 3.3 % (0.0-10.0); %Lymphocytes 16.2 % (21.0-51.0); %Monocytes 10.3 % (0.0-10.0); %Neutrophils 69.6 % (42.0-75.0); Hemoglobin 15.1 g/dL (14.0-18.0); Mean Corpuscular HGB CONC 33.1 g/dL (32.0-36.0); Mean Corpuscular Hemoglobin 31.9 pg (27.0-31.0); Mean Corpuscular Volume 96.5 fL (78.0-98.0); Mean Platelet Volume 7.9 fL (7.4-10.4); Platelet Count 287 thou/uL (130-400); RBC Distribution Width 11.7 % (11.5-14.5); Red Blood Cell (RBC) Count 4.74 mill/uL (4.70-6.10); White Blood Cell (WBC) Count 10.1 thou/uL (4.8-10.8)
[2021-03-05 05:24] LABS: Anion Gap 11 mmol/L (10-20); BUN (Urea Nitrogen) 10 mg/dL (8.4-25.7); Calc. Creatinine Clearance 135 mL/min (70-130); Calcium 9.4 mg/dL (7.8-10.44); Carbon Dioxide 30 mmol/L (22-29); Chloride 103 mmol/L (98-107); Glucose 236 mg/dL (70-105); Potassium 3.8 mmol/L (3.5-5.1); Sodium 140 mmol/L (136-145)
[2021-03-05] MEDS ORDERED: FLU VACC QS2021-22(6MOS UP)/PF 60 MCG/0.5 ML SYRINGE IM ONE (09:00)
[2021-03-05] MEDS: Enoxaparin Sodium 40 MG/0.4 ML SYRINGE SC SCH (09:59)
[2021-03-05] MEDS: Folic Acid 1 MG TAB PO SCH (10:00)
[2021-03-05] MEDS: metFORMIN 500 MG TAB PO SCH ×2 (10:00→17:17)
[2021-03-05] MEDS: Multivit, Therapeutic 1 TAB PO SCH (10:00)
[2021-03-05] MEDS: Alogliptin 6.25 MG TAB PO SCH (10:00)
[2021-03-05] MEDS: Losartan 25 MG TAB PO SCH (10:00)
[2021-03-05] MEDS: Furosemide 40 MG TAB PO SCH (10:00)
[2021-03-05] MEDS: Aspirin 325 MG TAB PO SCH (10:00)
[2021-03-05] MEDS: Thiamine 100 MG TAB PO SCH (10:01)
[2021-03-05] MEDS: Carvedilol 6.25 MG TAB PO SCH ×2 (17:13→20:45)
[2021-03-05 20:23] LABS: SARS-CoV-2 NAA Rapid Test Not Detected (NotDetected)
[2021-03-05] MEDS: Atorvastatin Calcium 40 MG TAB PO SCH (20:45)
[2021-03-05] MEDS: HumaLOG 300 UNITS/3 ML VIAL SC PRN (20:46)
[2021-03-06 04:34] LABS: #Basophils 0.1 thou/uL (0.0-0.2); #Eosinphils 0.4 thou/uL (0.0-0.7); #Lymphocytes 1.9 thou/uL (1.20-3.40); #Monocytes 1.1 thou/uL (0.11-0.59); #Neutrophils 7.5 thou/uL (1.40-6.50); %Basophils 0.8 % (0.0-1.0); %Eosinophils 3.9 % (0.0-10.0); %Monocytes 9.7 % (0.0-10.0); %Neutrophils 68.7 % (42.0-75.0); Hemoglobin 15.6 g/dL (14.0-18.0); Mean Corpuscular HGB CONC 33.8 g/dL (32.0-36.0); Mean Corpuscular Hemoglobin 32.6 pg (27.0-31.0); Mean Corpuscular Volume 96.4 fL (78.0-98.0); Mean Platelet Volume 7.6 fL (7.4-10.4); Platelet Count 290 thou/uL (130-400); RBC Distribution Width 11.7 % (11.5-14.5); Red Blood Cell (RBC) Count 4.78 mill/uL (4.70-6.10)
[2021-03-06 04:50] LABS: Anion Gap 12 mmol/L (10-20); BUN (Urea Nitrogen) 14 mg/dL (8.4-25.7); Calc. Creatinine Clearance 142 mL/min (70-130); Calcium 9.4 mg/dL (7.8-10.44); Carbon Dioxide 30 mmol/L (22-29); Chloride 100 mmol/L (98-107); Glucose 154 mg/dL (70-105); Potassium 3.6 mmol/L (3.5-5.1); Sodium 138 mmol/L (136-145)
[2021-03-06] MEDS: Alogliptin 6.25 MG TAB PO SCH (09:10)
[2021-03-06] MEDS: Multivit, Therapeutic 1 TAB PO SCH (09:10)
[2021-03-06] MEDS: Folic Acid 1 MG TAB PO SCH (09:11)
[2021-03-06] MEDS: Enoxaparin Sodium 40 MG/0.4 ML SYRINGE SC SCH (09:11)
[2021-03-06] MEDS: Losartan 25 MG TAB PO SCH (09:11)
[2021-03-06] MEDS: Thiamine 100 MG TAB PO SCH (09:11)
[2021-03-06] MEDS: Aspirin 325 MG TAB PO SCH (09:11)
[2021-03-06] MEDS: metFORMIN 500 MG TAB PO SCH ×2 (09:11→16:06)
[2021-03-06] MEDS: Furosemide 40 MG TAB PO SCH (09:11)
[2021-03-06] MEDS: Carvedilol 6.25 MG TAB PO SCH ×2 (09:11→20:45)
[2021-03-06] MEDS ORDERED: Iopamidol-370 76% 500 ML 1 ML ONE (10:06)
[2021-03-06] MEDS: HumaLOG 300 UNITS/3 ML VIAL SC PRN ×2 (11:33→16:52)
[2021-03-06] MEDS ORDERED: cefTRIAXone\\ROCEPHIN 1 GM in Sodium Chloride 0.9% 100 ML IVPB SCH (14:00)
[2021-03-06] MEDS ORDERED: Azithromycin 500 MG in Sodium Chloride 0.9% 250 ML 250 ML IVPB SCH (15:00)
[2021-03-06] MEDS: Atorvastatin Calcium 40 MG TAB PO SCH (20:46)
[2021-03-07] MEDS: HumaLOG 300 UNITS/3 ML VIAL SC PRN (06:21)
[2021-03-07 09:40] VITALS: BP 148/88; TEMP 98.2
[2021-03-07] MEDS: metFORMIN 500 MG TAB PO SCH (10:16)
[2021-03-07] MEDS: Folic Acid 1 MG TAB PO SCH (10:16)
[2021-03-07] MEDS: Losartan 25 MG TAB PO SCH (10:16)
[2021-03-07] MEDS: Furosemide 40 MG TAB PO SCH (10:16)
[2021-03-07] MEDS: Multivit, Therapeutic 1 TAB PO SCH (10:16)
[2021-03-07] MEDS: Carvedilol 6.25 MG TAB PO SCH (10:16)
[2021-03-07] MEDS: Thiamine 100 MG TAB PO SCH (10:16)
[2021-03-07] MEDS: Alogliptin 6.25 MG TAB PO SCH (10:17)
[2021-03-07] MEDS: Enoxaparin Sodium 40 MG/0.4 ML SYRINGE SC SCH (10:17)
[2021-03-07] MEDS: Aspirin 325 MG TAB PO SCH (10:17)
== END 2021-03-07 11:45 | disposition home or self-care (01) | DRG 194 ==
LOC: ERS 12:52 → 2NO 15:44 → OBSVTOIN 03-05 16:04 → MSONC 03-06 16:19
PROVIDERS: ADMIT Internal Medicine; ATTEND Internal Medicine
DX: J18.9 Pneumonia, unspecified organism (principal); I25.810 Atherosclerosis of coronary artery bypass graft(s) without angina pectoris; F14.10 Cocaine abuse, uncomplicated; Z20.822 Contact with and (suspected) exposure to COVID-19; E11.9 Type 2 diabetes mellitus without complications; I10 Essential (primary) hypertension; E78.5 Hyperlipidemia, unspecified; I25.5 Ischemic cardiomyopathy; E11.65 Type 2 diabetes mellitus with hyperglycemia; F19.10 Other psychoactive substance abuse, uncomplicated; R07.81 Pleurodynia; Z95.1 Presence of aortocoronary bypass graft; Z79.899 Other long term (current) drug therapy; Z86.73 Personal history of transient ischemic attack (TIA), and cerebral infarction without residual deficits
CPT/HCPCS: 0240U; 36415; 36416; 71045; 71275; 80048; 80053; 80306; 83036; 84484; 85025; 87040; 87633; 90471; 90686; 90732; 93005; 93306; G0008; G0009; J0456; J0696; J1650; J1815; J3490; J7050; Q9967; U0002

== ENCOUNTER 2021-09-18 15:02 | Emergency (ER) | payer SELFPAY ==
[2021-09-18 15:28] LABS: #Basophils 0.1 thou/uL (0.0-0.2); #Eosinphils 0.4 thou/uL (0.0-0.7); #Lymphocytes 1.5 thou/uL (1.20-3.40); #Monocytes 0.8 thou/uL (0.11-0.59); #Neutrophils 7.3 thou/uL (1.40-6.50); %Basophils 0.7 % (0.0-1.0); %Lymphocytes 14.9 % (21.0-51.0); %Monocytes 8.1 % (0.0-10.0); %Neutrophils 72.3 % (42.0-75.0); Hemoglobin 17.1 g/dL (14.0-18.0); Mean Corpuscular HGB CONC 33.7 g/dL (32.0-36.0); Mean Corpuscular Hemoglobin 33.2 pg (27.0-31.0); Mean Corpuscular Volume 98.5 fL (78.0-98.0); Mean Platelet Volume 8.5 fL (7.4-10.4); Platelet Count 261 thou/uL (130-400); RBC Distribution Width 12.3 % (11.5-14.5); Red Blood Cell (RBC) Count 5.15 mill/uL (4.70-6.10); White Blood Cell (WBC) Count 10.1 thou/uL (4.8-10.8)
[2021-09-18 16:02] LABS: ALT (SGPT) 17 U/L (8-55); AST (SGOT) 19 U/L (5-34); Albumin 4.4 g/dL (3.5-5.0); Alkaline Phosphatase 113 U/L (40-110); Anion Gap 18 mmol/L (10-20); BUN (Urea Nitrogen) 16 mg/dL (8.4-25.7); Bilirubin, Total 0.8 mg/dL (0.2-1.2); Calc. Creatinine Clearance 0 mL/min (70-130); Calcium 10.4 mg/dL (7.8-10.44); Carbon Dioxide 26 mmol/L (22-29); Chloride 100 mmol/L (98-107); Estimated GFR 87; Globulin 3.7 g/dL (2.4-3.5); Glucose 210 mg/dL (70-105); Potassium 3.5 mmol/L (3.5-5.1); Protein, Total 8.1 g/dL (6.0-8.3); Sodium 140 mmol/L (136-145)
[2021-09-18] MEDS ORDERED: levETIRAcetam 500 MG/5 ML VIAL ONE (18:04)
== END 2021-09-18 18:55 | disposition home or self-care (01) ==
LOC: ERS 15:02
DX: S06.5X9A Traumatic subdural hemorrhage with loss of consciousness of unspecified duration, initial encounter (principal); R29.6 Repeated falls; E11.9 Type 2 diabetes mellitus without complications; I10 Essential (primary) hypertension; I25.10 Atherosclerotic heart disease of native coronary artery without angina pectoris; Z86.73 Personal history of transient ischemic attack (TIA), and cerebral infarction without residual deficits; Z87.891 Personal history of nicotine dependence; Z79.84 Long term (current) use of oral hypoglycemic drugs; Z79.899 Other long term (current) drug therapy
CPT/HCPCS: 70450; 71045; 80053; 84484; 85025; 93005; 96365; J1953

== ENCOUNTER 2023-09-13 20:32 | Inpatient (IN) | payer OTHER ==
[~2023-09-13 20:32] MED LIST: Iopamidol-370 76% 500 ML MDV (1 ML CHARGE) ONE
[2023-09-13] MEDS ORDERED: Azithromycin 500 MG VIAL ONE (21:25)
[2023-09-13] MEDS ORDERED: cefTRIAXone (ROCEPHIN) 2 GM VIAL ONE (21:25)
[2023-09-13] MEDS ORDERED: Acetaminophen 650 MG/20.3 ML UDCUP ONE (21:25)
[2023-09-13 21:30] LABS: #Basophils 0.06 10x3/uL (0.0-0.2); %Basophils 0.7 % (0.0-1.0); %Eosinophils 1.6 % (0.0-10.0); %Monocytes 8.4 % (0.0-10.0); %Neutrophils 81.1 % (42.0-75.0); Hematocrit 50.9 % (42.0-52.0); Hemoglobin 17.4 g/dL (14.0-18.0); Mean Corpuscular HGB CONC 34.2 g/dL (32.0-36.0); Mean Corpuscular Volume 93.7 fL (78.0-98.0); Platelet Count 164 10x3/uL (130-400); RBC Distribution Width 13.4 % (11.5-14.5); Red Blood Cell (RBC) Count 5.43 mill/uL (4.70-6.10)
[2023-09-13 21:34] LABS: Actual Bicarbonate (HCO3v) 26.3 mEq/L (22-28); Base Excess 0.8 mEq/L (-2.0 to +3.0); Calcium, Ionized (venous) 1.11 mmol/L (1.16-1.32); Chloride (VBG) 97 mmol/L (98-106); Hematocrit-VBG 53 % (42.0-52.0); Potassium (VBG) 3.58 mmol/L (3.70-5.30); Sodium 139 mmol/L (133-146); pH (venous) 7.386 (7.32-7.43)
[2023-09-13 21:46] LABS: ALT (SGPT) 36 U/L (8-55); AST (SGOT) 45 U/L (5-34); Albumin 3.9 g/dL (3.5-5.0); Alkaline Phosphatase 83 U/L (40-110); Anion Gap 17 mmol/L (10-20); BUN (Urea Nitrogen) 14 mg/dL (8.4-25.7); Bilirubin, Total 1.5 mg/dL (0.2-1.2); Calc. Creatinine Clearance 0 mL/min (70-130); Calcium 9.3 mg/dL (7.8-10.44); Carbon Dioxide 25 mmol/L (22-29); Chloride 98 mmol/L (98-107); Estimated GFR 77; Globulin 3.1 g/dL (2.4-3.5); Glucose 171 mg/dL (70-105); Potassium 3.4 mmol/L (3.5-5.1); Sodium 137 mmol/L (136-145)
[2023-09-13 21:51] LABS: Troponin I 0.089 ng/mL (< 0.028)
[2023-09-13 21:52] LABS: INR-International Normal Ratio 1.4; Prothrombin Time 17.4 sec (12.0-14.7)
[2023-09-13] MEDS ORDERED: Ipratropium/Albuterol 3 ML NEB ONE (22:04)
[2023-09-13 22:50] LABS: Bacteria/HPF None Seen HPF (None Seen); Bilirubin 1+ (Negative); Blood, Urine 2+ (Negative); CAUTI Indications for Culture Pelvic or flank pain; Clarity Clear (Clear); Glucose, Urine (Dipstick) Greater than 1000 mg/dL (Negative); Ketone, Urine Trace mg/dL (Negative); Leukocyte Negative Leu/uL (Negative); Nitrite Negative (Negative); Protein, Urine (Dipstick) Greater than 600 mg/dL (Neg-Trace); Squamous Epithelial 0-3 HPF (0-3); Urobilinogen 3 mg/dL (Less than 2); pH, Urine 6.5 (5.0-9.0)
[2023-09-13] MEDS ORDERED: Aspirin Chewable 81 MG TAB ONE (23:00)
[2023-09-13] MEDS ORDERED: Nitroglycerin 2% Ointment 1 INCH/1 GM Packet ONE (23:00)
[2023-09-13 23:09] LABS: Urine Culture Reflex No No
[2023-09-13 23:14] LABS: Specific Gravity, Urine 1.056 (1.002-1.036)
[2023-09-13 23:30] LABS: Influenza A by NAA Not Detected (NotDetected); Influenza B by NAA Not Detected (NotDetected); SARS-CoV-2 NAA Rapid Test Not Detected (NotDetected)
[2023-09-14 03:38] LABS: Troponin I 0.112 ng/mL (< 0.028)
[2023-09-14 03:44] LABS: Lactic Acid 2.1 mmol/L (0.5-2.2)
[2023-09-14] MEDS ORDERED: Dextrose 5% in Water 1,000 ML IV PRN ×2 (04:49→18:12)
[2023-09-14] MEDS ORDERED: Dextrose 50% Abboject 50 ML SYRINGE SLOW IVP PRN ×2 (04:49→18:12)
[2023-09-14] MEDS ORDERED: Glucagon 1 MG/ML KIT IM PRN ×2 (04:49→18:12)
[2023-09-14] MEDS ORDERED: Ondansetron PF 4 MG/2 ML Vial IVP PRN (04:50)
[2023-09-14] MEDS ORDERED: Ondansetron ODT 4 MG TAB PO PRN (04:50)
[2023-09-14] MEDS ORDERED: Acetaminophen 325 MG TAB PO PRN (04:50)
[2023-09-14] MEDS ORDERED: Acetaminophen 650 MG Suppository PR PRN (04:50)
[2023-09-14 05:36] LABS: Troponin I 0.118 ng/mL (< 0.028)
[2023-09-14 08:33] VITALS: BMI 27.8
[2023-09-14] MEDS ORDERED: hydrALAZINE 10 MG TAB ONE ×2 (09:11→15:09)
[2023-09-14] MEDS ORDERED: Doxycycline 100 MG CAP ONE (09:11)
[2023-09-14] MEDS ORDERED: Famotidine 20 MG TAB ONE (09:12)
[2023-09-14] MEDS ORDERED: Furosemide 40 MG (4 mL) VIAL ONE ×2 (09:12→14:26)
[2023-09-14] MEDS ORDERED: Atorvastatin Calcium 40 MG TAB ONE (09:12)
[2023-09-14] MEDS ORDERED: Aspirin Chewable 81 MG TAB ONE (09:12)
[2023-09-14] MEDS ORDERED: Carvedilol 6.25 MG TAB ONE ×2 (09:13→16:38)
[2023-09-14] MEDS: Furosemide 40 MG (4 mL) VIAL SLOW IVP SCH (09:13)
[2023-09-14] MEDS ORDERED: Cefepime 1 GM VIAL ONE (09:13)
[2023-09-14] MEDS ORDERED: Sodium Chloride 0.9% 100 ML ONE (09:13)
[2023-09-14] MEDS: Famotidine 20 MG TAB PO SCH (09:14)
[2023-09-14] MEDS: hydrALAZINE 10 MG TAB PO SCH (09:14)
[2023-09-14] MEDS: Famotidine/PF 20 mg/2ml Vial SLOW IVP SCH (09:14)
[2023-09-14] MEDS: Atorvastatin Calcium 40 MG TAB PO SCH (09:14)
[2023-09-14] MEDS: Doxycycline 100 MG CAP PO SCH (09:14)
[2023-09-14] MEDS: Aspirin Chewable 81 MG TAB PO SCH (09:14)
[2023-09-14] MEDS: Carvedilol 6.25 MG TAB PO SCH (09:14)
[2023-09-14] MEDS: Cefepime 1 GM in Sodium Chloride 0.9% 100 ML IVPB SCH (09:15)
[2023-09-14] MEDS ORDERED: Losartan 25 MG TAB ONE (09:56)
[2023-09-14] MEDS: Losartan 25 MG TAB PO SCH (10:00)
[2023-09-14] MEDS: Empagliflozin 10 MG TAB PO SCH (10:55)
[2023-09-14] MEDS: metFORMIN 500 MG TAB PO SCH (10:55)
[2023-09-14] MEDS: Citalopram 20 MG TAB PO SCH (10:55)
[2023-09-14 13:08] LABS: Amphetamine Not Detected (NotDetected); Barbiturates Screen Not Detected (NotDetected); Benzodiazepine Screen Not Detected (NotDetected); Cocaine Metabolite Screen Detected (NotDetected); Methadone Not Detected (NotDetected); Methamphetamine Not Detected (NotDetected); Opiate Screen Detected (NotDetected); Oxycodone Screen Not Detected (NotDetected); Phencyclidine (PCP) Not Detected (NotDetected); THC/Cannabinoid Screen Detected (NotDetected); Tricyclic Screen Not Detected (NotDetected)
[2023-09-14] MEDS: Ipratropium/Albuterol 3 ML NEB NEB SCH (13:46)
[2023-09-14] MEDS ORDERED: Ipratropium/Albuterol 3 ML NEB ONE (14:49)
[2023-09-14] MEDS ORDERED: HumaLOG 300 UNITS/3 ML VIAL SC PRN (18:12)
[2023-09-15 07:20] LABS: #Basophils 0.07 10x3/uL (0.0-0.2); %Basophils 1.2 % (0.0-1.0); %Eosinophils 5.4 % (0.0-10.0); %Monocytes 9.7 % (0.0-10.0); %Neutrophils 58.4 % (42.0-75.0); Hematocrit 50.4 % (42.0-52.0); Hemoglobin 16.9 g/dL (14.0-18.0); Mean Corpuscular HGB CONC 33.5 g/dL (32.0-36.0); Mean Corpuscular Hemoglobin 31.6 pg (27.0-31.0); Mean Corpuscular Volume 94.2 fL (78.0-98.0); Mean Platelet Volume 11.2 fL (7.4-10.4); Platelet Count 192 10x3/uL (130-400); RBC Distribution Width 13.3 % (11.5-14.5); Red Blood Cell (RBC) Count 5.35 mill/uL (4.70-6.10)
[2023-09-15 07:38] LABS: Anion Gap 15 mmol/L (10-20); BUN (Urea Nitrogen) 19 mg/dL (8.4-25.7); Calc. Creatinine Clearance 102 mL/min (70-130); Calcium 9.3 mg/dL (7.8-10.44); Carbon Dioxide 28 mmol/L (22-29); Chloride 99 mmol/L (98-107); Estimated GFR 86; Glucose 109 mg/dL (70-105); Magnesium 1.9 mg/dL (1.6-2.6); Potassium 2.9 mmol/L (3.5-5.1); Sodium 139 mmol/L (136-145)
[2023-09-15] MEDS: Cefepime 2 GM in Sodium Chloride 0.9% 100 ML IVPB SCH (08:27)
[2023-09-15] MEDS ORDERED: Empagliflozin 25 MG TAB PO SCH (09:00)
[2023-09-15] MEDS ORDERED: Non-Formulary Item 1 EACH (Losartan Potassium [Losartan Potassium] 100 MG Tablet) PO SCH (09:00)
[2023-09-15] MEDS ORDERED: Furosemide 40 MG TAB PO SCH (09:00)
[2023-09-15] MEDS ORDERED: Electrolyte Replacement Protocol 1 EACH FS SCH (09:30)
[2023-09-15] MEDS: Potassium Chloride 20 MEQ TAB PO SCH (09:45)
[2023-09-15] MEDS: Magnesium 2 GM/50 ML(in water) 2 GM in Premix 1 BAG IVPB SCH (10:40)
[2023-09-15] MEDS: Enoxaparin 40 MG (0.4 mL) SYRINGE SC SCH (20:13)
[2023-09-15] MEDS: Insulin Regular, Human 100 UNIT/ML 10 ML VIAL SC PRN (20:48)
[2023-09-16] MEDS: Losartan 25 MG TAB PO SCH (08:52)
[2023-09-16] MEDS ORDERED: Guaifenesin DM 100-10/5 ML UDCUP PO PRN (09:44)
[2023-09-16 10:52] LABS: Hemoglobin 16.8 g/dL (14.0-18.0); Mean Corpuscular HGB CONC 32.9 g/dL (32.0-36.0); Mean Corpuscular Hemoglobin 31.8 pg (27.0-31.0); Mean Corpuscular Volume 96.4 fL (78.0-98.0); Mean Platelet Volume 11.5 fL (7.4-10.4); Platelet Count 221 10x3/uL (130-400); Red Blood Cell (RBC) Count 5.29 mill/uL (4.70-6.10)
[2023-09-16 11:21] LABS: Anion Gap 16 mmol/L (10-20); BUN (Urea Nitrogen) 24 mg/dL (8.4-25.7); Calc. Creatinine Clearance 98 mL/min (70-130); Calcium 9.5 mg/dL (7.8-10.44); Carbon Dioxide 35 mmol/L (22-29); Chloride 95 mmol/L (98-107); Estimated GFR 78; Glucose 106 mg/dL (70-105); Potassium 2.6 mmol/L (3.5-5.1); Sodium 143 mmol/L (136-145)
[2023-09-16] MEDS: Guaifenesin DM 100-10/5 ML UDCUP PO PRN (11:31)
[2023-09-16] MEDS: Insulin Regular, Human 100 UNIT/ML 10 ML VIAL SC PRN (12:25)
[2023-09-16] MEDS: Potassium Chloride 20 MEQ TAB PO SCH ×2 (12:25→22:55)
[2023-09-16] MEDS: Furosemide 40 MG (4 mL) VIAL SLOW IVP SCH (14:02)
[2023-09-16 15:02] LABS: Band 5 % (5-11); Eosinophils 5 % (0-10); Lymphocytes 22 % (21-51); Monocytes 9 % (0-10); Neutrophil 57 % (42-75); Platelet Adequacy Comment Platelets Normal; Polychromasia SLIGHT = 2-3 cells HPF (0-2); Reactive Lymphocytes 2 % (0-10)
[2023-09-16 20:58] LABS: Potassium 3.2 mmol/L (3.5-5.1)
[2023-09-17 08:30] VITALS: TEMP 97.5
[2023-09-17] MEDS ORDERED: Losartan 25 MG TAB PO SCH (09:00)
[2023-09-17] MEDS: Losartan 25 MG TAB PO SCH (10:43)
[2023-09-17 14:09] VITALS: BP 148/119
[2023-09-18] MEDS ORDERED: Furosemide 40 MG TAB PO SCH (09:00)
[2023-09-18] MEDS ORDERED: Losartan 25 MG TAB PO SCH (09:00)
== END 2023-09-17 16:16 | disposition home or self-care (01) | DRG 871 ==
LOC: ERS 20:32 → ERHOLD 09-14 00:24 → IMCU/EMU 09-14 17:34 → T4-A 09-15 17:46
PROVIDERS: ADMIT Student in an Organized Health Care Education/Training Program; ATTEND Internal Medicine
DX: A41.89 Other specified sepsis (principal); I50.23 Acute on chronic systolic (congestive) heart failure; J15.8 Pneumonia due to other specified bacteria; I24.89 Other forms of acute ischemic heart disease; E87.6 Hypokalemia; I25.10 Atherosclerotic heart disease of native coronary artery without angina pectoris; E11.9 Type 2 diabetes mellitus without complications; I11.0 Hypertensive heart disease with heart failure; F17.200 Nicotine dependence, unspecified, uncomplicated; I48.91 Unspecified atrial fibrillation; F14.10 Cocaine abuse, uncomplicated; F10.10 Alcohol abuse, uncomplicated; I25.5 Ischemic cardiomyopathy; E78.5 Hyperlipidemia, unspecified; E83.42 Hypomagnesemia; Z79.899 Other long term (current) drug therapy; Z95.1 Presence of aortocoronary bypass graft; Z79.84 Long term (current) use of oral hypoglycemic drugs; Z79.82 Long term (current) use of aspirin; Z71.51 Drug abuse counseling and surveillance of drug abuser; Z91.148 Patient's other noncompliance with medication regimen for other reason
CPT/HCPCS: 36415; 36416; 71045; 71275; 80048; 80053; 80306; 81001; 82805; 83605; 83735; 83880; 84484; 85025; 85610; 85730; 87040; 87086; 93005; 93798; 94640; 96374; 96375; J0456; J0692; J0696; J1650; J1815; J1940; J3475; J3490; J7620; Q9967; S0028

== ENCOUNTER 2023-11-28 09:21 | Outpatient (CLI) | payer OTHER | END 2023-11-28 09:22 | disposition home or self-care (01) | LOC: ULT 09:21 | PROVIDERS: ATTEND Family Medicine | DX: R06.00 Dyspnea, unspecified (principal); R19.8 Other specified symptoms and signs involving the digestive system and abdomen; R16.0 Hepatomegaly, not elsewhere classified; K82.9 Disease of gallbladder, unspecified; R18.8 Other ascites | CPT/HCPCS: 76700 ==

== ENCOUNTER 2024-02-07 16:30 | Inpatient (IN) | payer OTHER ==
[2024-02-07 17:30] LABS: %Basophils 0.7 % (0.0-1.0); %Eosinophils 0.2 % (0.0-10.0); %Lymphocytes 4.4 % (21.0-51.0); %Monocytes 5.7 % (0.0-10.0); %Neutrophils 88.5 % (42.0-75.0); Hematocrit 51.6 % (42.0-52.0); Mean Corpuscular HGB CONC 32.9 g/dL (32.0-36.0); Mean Corpuscular Hemoglobin 30.2 pg (27.0-31.0); Mean Corpuscular Volume 91.8 fL (78.0-98.0); Mean Platelet Volume 10.5 fL (7.4-10.4); Platelet Count 287 10x3/uL (130-400); RBC Distribution Width 16.7 % (11.5-14.5); Red Blood Cell (RBC) Count 5.62 mill/uL (4.70-6.10)
[2024-02-07 17:44] LABS: ALT (SGPT) 17 U/L (8-55); AST (SGOT) 39 U/L (5-34); Albumin 3.3 g/dL (3.5-5.0); Alkaline Phosphatase 115 U/L (40-110); Anion Gap 16 mmol/L (10-20); BUN (Urea Nitrogen) 16 mg/dL (8.4-25.7); Bilirubin, Total 4.3 mg/dL (0.2-1.2); Calc. Creatinine Clearance 0 mL/min (70-130); Carbon Dioxide 26 mmol/L (22-29); Chloride 98 mmol/L (98-107); Estimated GFR 78; Globulin 3.5 g/dL (2.4-3.5); Glucose 188 mg/dL (70-105); Potassium 3.4 mmol/L (3.5-5.1); Protein, Total 6.8 g/dL (6.0-8.3); Sodium 137 mmol/L (136-145)
[2024-02-07 17:49] LABS: Troponin I 0.088 ng/mL (< 0.028)
[2024-02-07] MEDS ORDERED: cefTRIAXone (ROCEPHIN) 1 GM VIAL ONE (19:45)
[2024-02-07] MEDS ORDERED: Furosemide 40 MG (4 mL) VIAL ONE (19:45)
[2024-02-07] MEDS ORDERED: Sodium Chloride 0.9% 100 ML ONE (19:45)
[2024-02-07] MEDS ORDERED: Aspirin Chewable 81 MG TAB ONE (19:45)
[2024-02-07] MEDS ORDERED: Acetaminophen 325 MG TAB PO PRN (20:45)
[2024-02-07] MEDS ORDERED: Ondansetron PF 4 MG/2 ML Vial IVP PRN ×2 (20:45→22:42)
[2024-02-07] MEDS ORDERED: Ondansetron ODT 4 MG TAB SL PRN (20:45)
[2024-02-07 21:26] LABS: Troponin I 0.074 ng/mL (< 0.028)
[2024-02-07 22:32] LABS: Bacteria/HPF None Seen HPF (None Seen); Bilirubin Negative (Negative); Blood, Urine Negative (Negative); CAUTI Indications for Culture Fever or rigors; Clarity Clear (Clear); Glucose, Urine (Dipstick) Normal (Negative); Ketone, Urine Negative (Negative); Leukocyte Negative Leu/uL (Negative); Nitrite Negative (Negative); Protein, Urine (Dipstick) Negative (Neg-Trace); RBC/HPF 0-3 HPF (0-3); Specific Gravity, Urine 1.011 (1.002-1.036); Squamous Epithelial None Seen HPF (0-3); Urobilinogen Normal mg/dL (Less than 2); WBC/HPF 0-3 HPF (0-3); pH, Urine 6.5 (5.0-9.0)
[2024-02-07 22:36] LABS: Urine Culture Reflex No No
[2024-02-07] MEDS: Azithromycin 500 MG in Sodium Chloride 0.9% 250 ML 250 ML IVPB SCH (22:36)
[2024-02-07] MEDS ORDERED: Calcium Carbonate 500 MG ChewTAB PO PRN (22:42)
[2024-02-07] MEDS ORDERED: Ondansetron ODT 4 MG TAB PO PRN (22:42)
[2024-02-07] MEDS ORDERED: Dextrose 50% Abboject 50 ML SYRINGE SLOW IVP PRN (22:45)
[2024-02-07] MEDS ORDERED: Glucagon 1 MG/ML KIT IM PRN (22:45)
[2024-02-07] MEDS ORDERED: Dextrose 5% in Water 1,000 ML IV PRN (22:45)
[2024-02-07] MEDS ORDERED: Nitroglycerin 2% Ointment 1 INCH/1 GM Packet ONE (23:43)
[2024-02-07] MEDS: Nitroglycerin 2% Ointment 1 INCH/1 GM Packet TOP SCH (23:52)
[2024-02-08 03:24] LABS: #Basophils 0.11 10x3/uL (0.0-0.2); %Basophils 1.1 % (0.0-1.0); %Eosinophils 1.7 % (0.0-10.0); %Lymphocytes 7.7 % (21.0-51.0); %Monocytes 9.3 % (0.0-10.0); Hematocrit 45.4 % (42.0-52.0); Hemoglobin 15.2 g/dL (14.0-18.0); Mean Corpuscular HGB CONC 33.5 g/dL (32.0-36.0); Mean Corpuscular Hemoglobin 30.4 pg (27.0-31.0); Mean Corpuscular Volume 90.8 fL (78.0-98.0); Mean Platelet Volume 10.3 fL (7.4-10.4); Platelet Count 253 10x3/uL (130-400); RBC Distribution Width 16.3 % (11.5-14.5)
[2024-02-08 03:57] LABS: Troponin I 0.091 ng/mL (< 0.028)
[2024-02-08 04:48] LABS: Chloride 102 mmol/L (98-107); Potassium 2.9 mmol/L (3.5-5.1); Sodium 138 mmol/L (136-145)
[2024-02-08 04:49] LABS: Albumin 3.1 g/dL (3.5-5.0)
[2024-02-08 04:50] LABS: Globulin 3.2 g/dL (2.4-3.5); Glucose 133 mg/dL (70-105); Protein, Total 6.3 g/dL (6.0-8.3)
[2024-02-08 04:51] LABS: Anion Gap 15 mmol/L (10-20); Carbon Dioxide 24 mmol/L (22-29)
[2024-02-08 04:53] LABS: Alkaline Phosphatase 103 U/L (40-110); Bilirubin, Total 3.3 mg/dL (0.2-1.2)
[2024-02-08 04:54] LABS: BUN (Urea Nitrogen) 15 mg/dL (8.4-25.7); Calc. Creatinine Clearance 121 mL/min (70-130); Estimated GFR 95
[2024-02-08 04:55] LABS: ALT (SGPT) 18 U/L (8-55); Magnesium 1.7 mg/dL (1.6-2.6)
[2024-02-08 04:56] LABS: AST (SGOT) 42 U/L (5-34)
[2024-02-08] MEDS ORDERED: Electrolyte Replacement Protocol 1 EACH FS PRN (05:24)
[2024-02-08] MEDS ORDERED: Electrolyte Replacement Protocol FS PRN (07:00)
[2024-02-08] MEDS ORDERED: Atorvastatin Calcium 40 MG TAB ONE (10:07)
[2024-02-08] MEDS ORDERED: Carvedilol 6.25 MG TAB ONE (10:07)
[2024-02-08] MEDS ORDERED: Famotidine 20 MG TAB ONE (10:07)
[2024-02-08] MEDS ORDERED: Furosemide 40 MG (4 mL) VIAL ONE ×2 (10:07→13:59)
[2024-02-08] MEDS ORDERED: Potassium Chloride 20 MEQ TAB ONE ×2 (10:07→13:59)
[2024-02-08] MEDS ORDERED: Magnesium 2 GM/50 ML BAG (IN WATER) ONE (10:08)
[2024-02-08] MEDS ORDERED: Losartan 25 MG TAB ONE (10:10)
[2024-02-08] MEDS: Carvedilol 6.25 MG TAB PO SCH (10:22)
[2024-02-08] MEDS: Furosemide 40 MG (4 mL) VIAL SLOW IVP SCH (10:22)
[2024-02-08] MEDS: Magnesium 2 GM/50 ML(in water) 2 GM in Premix 1 BAG IVPB SCH ×2 (10:22→11:19)
[2024-02-08] MEDS: Potassium Chloride 20 MEQ TAB PO SCH ×3 (10:22→19:49)
[2024-02-08] MEDS: Citalopram 20 MG TAB PO SCH (10:23)
[2024-02-08] MEDS: Famotidine 20 MG TAB PO SCH (10:23)
[2024-02-08] MEDS: Atorvastatin Calcium 40 MG TAB PO SCH (10:23)
[2024-02-08] MEDS: Losartan 25 MG TAB PO SCH (10:23)
[2024-02-08] MEDS: Empagliflozin 25 MG TAB PO SCH (10:23)
[2024-02-08] MEDS: Aspirin Chewable 81 MG TAB PO SCH (10:24)
[2024-02-08] MEDS: Famotidine/PF 20 mg/2ml Vial SLOW IVP SCH (10:24)
[2024-02-08] MEDS ORDERED: Acetaminophen 325 MG TAB PO PRN (12:33)
[2024-02-08 15:27] VITALS: BMI 32.4
[2024-02-08 20:22] LABS: Anion Gap 14 mmol/L (10-20); BUN (Urea Nitrogen) 16 mg/dL (8.4-25.7); Calc. Creatinine Clearance 104 mL/min (70-130); Calcium 8.5 mg/dL (7.8-10.44); Carbon Dioxide 28 mmol/L (22-29); Chloride 98 mmol/L (98-107); Estimated GFR 82; Glucose 188 mg/dL (70-105); Potassium 3.2 mmol/L (3.5-5.1); Sodium 137 mmol/L (136-145)
[2024-02-08 20:31] LABS: Amphetamine Not Detected (NotDetected); Barbiturates Screen Not Detected (NotDetected); Benzodiazepine Screen Not Detected (NotDetected); Cocaine Metabolite Screen Detected (NotDetected); Methadone Not Detected (NotDetected); Methamphetamine Not Detected (NotDetected); Opiate Screen Not Detected (NotDetected); Oxycodone Screen Not Detected (NotDetected); Phencyclidine (PCP) Not Detected (NotDetected); THC/Cannabinoid Screen Not Detected (NotDetected); Tricyclic Screen Not Detected (NotDetected)
[2024-02-08] MEDS: Magnesium Oxide 400 MG TAB PO SCH (20:37)
[2024-02-09] MEDS: Guaifenesin DM 100-10/5 ML UDCUP PO PRN (00:17)
[2024-02-09] MEDS: Benzocaine/Menthol 1 LOZ LOZ PO PRN (00:17)
[2024-02-09 06:08] LABS: %Basophils 1.3 % (0.0-1.0); %Eosinophils 6.5 % (0.0-10.0); %Lymphocytes 13.3 % (21.0-51.0); %Monocytes 12.8 % (0.0-10.0); %Neutrophils 65.7 % (42.0-75.0); Hematocrit 49.2 % (42.0-52.0); Mean Corpuscular HGB CONC 32.5 g/dL (32.0-36.0); Mean Corpuscular Volume 92.1 fL (78.0-98.0); Platelet Count 237 10x3/uL (130-400); RBC Distribution Width 16.7 % (11.5-14.5); Red Blood Cell (RBC) Count 5.34 mill/uL (4.70-6.10)
[2024-02-09 06:23] LABS: INR-International Normal Ratio 1.5; Prothrombin Time 18.5 sec (12.0-14.7)
[2024-02-09 06:24] LABS: PTT 33.8 sec (22.9-36.1)
[2024-02-09 06:42] LABS: Anion Gap 15 mmol/L (10-20); BUN (Urea Nitrogen) 19 mg/dL (8.4-25.7); Calc. Creatinine Clearance 104 mL/min (70-130); Calcium 9.3 mg/dL (7.8-10.44); Carbon Dioxide 26 mmol/L (22-29); Chloride 99 mmol/L (98-107); Estimated GFR 83; Glucose 126 mg/dL (70-105); Potassium 3.4 mmol/L (3.5-5.1); Sodium 137 mmol/L (136-145)
[2024-02-09] MEDS: Metolazone 5 MG TAB PO SCH (09:13)
[2024-02-09] MEDS: Clindamycin 150 MG CAP PO SCH (09:14)
[2024-02-09] MEDS: Magnesium 2 GM/50 ML(in water) 2 GM in Premix 1 BAG IVPB SCH (09:14)
[2024-02-09 15:50] LABS: Potassium 3.4 mmol/L (3.5-5.1)
[2024-02-09] MEDS: Insulin Lispro 100 UNIT/ML 10 ML VIAL SC PRN (16:57)
[2024-02-10] MEDS: Potassium Chloride 20 MEQ TAB PO SCH ×2 (00:04→09:41)
[2024-02-10] MEDS: traZODone HCl 50 MG TAB PO PRN (00:49)
[2024-02-10 04:59] LABS: #Basophils 0.08 10x3/uL (0.0-0.2); %Basophils 1.1 % (0.0-1.0); %Eosinophils 5.4 % (0.0-10.0); %Lymphocytes 18.3 % (21.0-51.0); %Neutrophils 62.9 % (42.0-75.0); Hematocrit 46.2 % (42.0-52.0); Hemoglobin 15.2 g/dL (14.0-18.0); Mean Corpuscular HGB CONC 32.9 g/dL (32.0-36.0); Mean Corpuscular Volume 91.1 fL (78.0-98.0); Mean Platelet Volume 11.2 fL (7.4-10.4); Platelet Count 229 10x3/uL (130-400); RBC Distribution Width 16.5 % (11.5-14.5); Red Blood Cell (RBC) Count 5.07 mill/uL (4.70-6.10)
[2024-02-10 05:10] LABS: Anion Gap 14 mmol/L (10-20); BUN (Urea Nitrogen) 24 mg/dL (8.4-25.7); Calc. Creatinine Clearance 102 mL/min (70-130); Carbon Dioxide 30 mmol/L (22-29); Chloride 96 mmol/L (98-107); Estimated GFR 81; Glucose 162 mg/dL (70-105); Magnesium 2.1 mg/dL (1.6-2.6); Potassium 3.2 mmol/L (3.5-5.1); Sodium 137 mmol/L (136-145)
[2024-02-10] MEDS: FLU (Fluarix Triv) TS24-25(6MOS UP)/PF 45 MCG/0.5 ML Syringe IM ONE (10:24)
[2024-02-10] MEDS ORDERED: Furosemide 20 MG TAB PO SCH (14:00)
[2024-02-10] MEDS: Furosemide 40 MG (4 mL) VIAL SLOW IVP SCH (15:20)
[2024-02-10] MEDS: DOBUTamine 500 mg/250 ml 250 ML IVPB SCH (15:25)
[2024-02-10] MEDS: Insulin Lispro 100 UNIT/ML 10 ML VIAL SC PRN (17:41)
[2024-02-10] MEDS: Spironolactone 25 MG TAB PO SCH (20:05)
[2024-02-11] MEDS: Furosemide 100 MG (10 mL) VIAL SLOW IVP SCH (05:33)
[2024-02-11 05:44] LABS: #Basophils 0.08 10x3/uL (0.0-0.2); %Eosinophils 5.4 % (0.0-10.0); %Lymphocytes 16.6 % (21.0-51.0); %Monocytes 10.4 % (0.0-10.0); %Neutrophils 66.1 % (42.0-75.0); Hematocrit 45.7 % (42.0-52.0); Hemoglobin 15.3 g/dL (14.0-18.0); Mean Corpuscular HGB CONC 33.5 g/dL (32.0-36.0); Mean Corpuscular Hemoglobin 30.3 pg (27.0-31.0); Mean Corpuscular Volume 90.5 fL (78.0-98.0); Mean Platelet Volume 11.2 fL (7.4-10.4); Platelet Count 265 10x3/uL (130-400); RBC Distribution Width 16.1 % (11.5-14.5); Red Blood Cell (RBC) Count 5.05 mill/uL (4.70-6.10)
[2024-02-11 06:22] LABS: Anion Gap 18 mmol/L (10-20); BUN (Urea Nitrogen) 22 mg/dL (8.4-25.7); Calc. Creatinine Clearance 99 mL/min (70-130); Calcium 9.5 mg/dL (7.8-10.44); Carbon Dioxide 34 mmol/L (22-29); Chloride 90 mmol/L (98-107); Estimated GFR 85; Glucose 101 mg/dL (70-105); Magnesium 1.9 mg/dL (1.6-2.6); Potassium 2.8 mmol/L (3.5-5.1); Sodium 139 mmol/L (136-145)
[2024-02-11] MEDS: Nadolol 40 MG TAB PO SCH (08:43)
[2024-02-11] MEDS: Magnesium 2 GM/50 ML(in water) 2 GM in Premix 1 BAG IVPB SCH (09:34)
[2024-02-11] MEDS: Potassium Chloride 20 MEQ TAB PO SCH (11:40)
[2024-02-11 19:08] LABS: Anion Gap 17 mmol/L (10-20); BUN (Urea Nitrogen) 25 mg/dL (8.4-25.7); Calc. Creatinine Clearance 85 mL/min (70-130); Calcium 9.9 mg/dL (7.8-10.44); Carbon Dioxide 35 mmol/L (22-29); Chloride 87 mmol/L (98-107); Estimated GFR 71; Glucose 171 mg/dL (70-105); Sodium 135 mmol/L (136-145)
[2024-02-11] MEDS ORDERED: Ipratropium/Albuterol 3 ML NEB NEB PRN (20:38)
[2024-02-12 05:24] LABS: #Basophils 0.08 10x3/uL (0.0-0.2); %Eosinophils 3.5 % (0.0-10.0); %Lymphocytes 19.4 % (21.0-51.0); %Monocytes 11.6 % (0.0-10.0); %Neutrophils 64.3 % (42.0-75.0); Hematocrit 49.8 % (42.0-52.0); Hemoglobin 16.1 g/dL (14.0-18.0); Mean Corpuscular HGB CONC 32.3 g/dL (32.0-36.0); Mean Corpuscular Hemoglobin 29.9 pg (27.0-31.0); Mean Corpuscular Volume 92.4 fL (78.0-98.0); Mean Platelet Volume 11.2 fL (7.4-10.4); Platelet Count 280 10x3/uL (130-400); RBC Distribution Width 16.2 % (11.5-14.5); Red Blood Cell (RBC) Count 5.39 mill/uL (4.70-6.10)
[2024-02-12 05:30] LABS: Anion Gap 15 mmol/L (10-20); BUN (Urea Nitrogen) 24 mg/dL (8.4-25.7); Calc. Creatinine Clearance 83 mL/min (70-130); Calcium 9.4 mg/dL (7.8-10.44); Carbon Dioxide 36 mmol/L (22-29); Chloride 89 mmol/L (98-107); Estimated GFR 72; Glucose 128 mg/dL (70-105); Magnesium 2.4 mg/dL (1.6-2.6); Potassium 3.5 mmol/L (3.5-5.1); Sodium 136 mmol/L (136-145)
[2024-02-12] MEDS: Enoxaparin 40 MG (0.4 mL) SYRINGE SC SCH (08:08)
[2024-02-12] MEDS: Furosemide 40 MG (4 mL) VIAL SLOW IVP SCH (08:10)
[2024-02-12 17:03] VITALS: BP 116/83; TEMP 97.6
== END 2024-02-12 18:03 | disposition home or self-care (01) | DRG 291 ==
LOC: ERS 16:30 → ERHOLD 20:31 → OBS 02-08 15:19
PROVIDERS: ADMIT Student in an Organized Health Care Education/Training Program; ATTEND Internal Medicine
DX: I11.0 Hypertensive heart disease with heart failure (principal); I50.43 Acute on chronic combined systolic (congestive) and diastolic (congestive) heart failure; E11.9 Type 2 diabetes mellitus without complications; I25.10 Atherosclerotic heart disease of native coronary artery without angina pectoris; E78.5 Hyperlipidemia, unspecified; E80.6 Other disorders of bilirubin metabolism; F14.10 Cocaine abuse, uncomplicated; F19.10 Other psychoactive substance abuse, uncomplicated; E66.9 Obesity, unspecified; I25.5 Ischemic cardiomyopathy; K70.31 Alcoholic cirrhosis of liver with ascites; K04.7 Periapical abscess without sinus; Z68.33 Body mass index [BMI] 33.0-33.9, adult; Z95.1 Presence of aortocoronary bypass graft; Z91.148 Patient's other noncompliance with medication regimen for other reason; Z79.82 Long term (current) use of aspirin; Z79.899 Other long term (current) drug therapy
CPT/HCPCS: 36415; 36416; 71045; 71275; 76700; 80048; 80053; 80306; 81001; 82140; 83605; 83735; 83880; 84484; 85025; 85610; 85730; 87040; 87428; 93005; 93306; 93798; 96365; 96375; J0696; J1250; J1650; J1815; J1940; J3475; J7620; Q9967

== ENCOUNTER 2024-03-20 17:43 | Inpatient (IN) | payer OTHER ==
[2024-03-20 18:44] LABS: %Basophils 0.7 % (0.0-1.0); %Eosinophils 1.7 % (0.0-10.0); %Lymphocytes 8.5 % (21.0-51.0); %Monocytes 7.3 % (0.0-10.0); %Neutrophils 81.3 % (42.0-75.0); Hematocrit 52.4 % (42.0-52.0); Mean Corpuscular HGB CONC 32.4 g/dL (32.0-36.0); Mean Corpuscular Hemoglobin 30.6 pg (27.0-31.0); Mean Corpuscular Volume 94.2 fL (78.0-98.0); Mean Platelet Volume 10.5 fL (7.4-10.4); Platelet Count 206 10x3/uL (130-400); RBC Distribution Width 17.2 % (11.5-14.5); Red Blood Cell (RBC) Count 5.56 mill/uL (4.70-6.10)
[2024-03-20 18:59] LABS: ALT (SGPT) 16 U/L (Less than 45); AST (SGOT) 34 U/L (11-34); Albumin 3.9 g/dL (3.1-4.5); Alkaline Phosphatase 148 U/L (40-110); Anion Gap 14 mmol/L (10-20); BUN (Urea Nitrogen) 17 mg/dL (8.4-25.7); Calc. Creatinine Clearance 0 mL/min (70-130); Calcium 9.6 mg/dL (7.8-10.44); Carbon Dioxide 28 mmol/L (22-29); Chloride 102 mmol/L (98-107); Estimated GFR 91; Globulin 3.2 g/dL (2.4-3.5); Glucose 81 mg/dL (70-105); Potassium 3.6 mmol/L (3.5-5.1); Protein, Total 7.1 g/dL (6.0-8.3); Sodium 140 mmol/L (136-145)
[2024-03-20 19:04] LABS: Troponin I 0.045 ng/mL (< 0.028)
[2024-03-20 20:34] LABS: INR-International Normal Ratio 1.4; Prothrombin Time 17.4 sec (12.0-14.7)
[2024-03-20 20:35] LABS: PTT 33.3 sec (22.9-36.1)
[2024-03-20] MEDS ORDERED: Furosemide 40 MG (4 mL) VIAL ONE (21:41)
[2024-03-20] MEDS ORDERED: Aspirin Chewable 81 MG TAB ONE (21:41)
[2024-03-20] MEDS ORDERED: Sodium Chloride 0.9% 100 ML ONE (21:41)
[2024-03-20] MEDS ORDERED: Piperacillin/Tazobactam 4.5 GM VIAL ONE (21:41)
[2024-03-20 22:20] LABS: Troponin I 0.048 ng/mL (< 0.028)
[2024-03-20] MEDS ORDERED: Ondansetron ODT 4 MG TAB PO PRN (23:41)
[2024-03-20] MEDS ORDERED: Acetaminophen 650 MG Suppository PR PRN (23:41)
[2024-03-20] MEDS ORDERED: Calcium Carbonate 500 MG ChewTAB PO PRN (23:41)
[2024-03-20] MEDS ORDERED: Ondansetron PF 4 MG/2 ML Vial IVP PRN (23:41)
[2024-03-21 00:50] LABS: Troponin I 0.054 ng/mL (< 0.028)
[2024-03-21 01:00] VITALS: BMI 28.5
[2024-03-21] MEDS: Piperacillin/Tazobactam 3.375 GM in Sodium Chloride 0.9% 100 ML IVPB SCH (01:15)
[2024-03-21 02:28] LABS: Amphetamine Not Detected (NotDetected); Barbiturates Screen Not Detected (NotDetected); Benzodiazepine Screen Not Detected (NotDetected); Cocaine Metabolite Screen Detected (NotDetected); Methadone Not Detected (NotDetected); Methamphetamine Not Detected (NotDetected); Opiate Screen Not Detected (NotDetected); Oxycodone Screen Not Detected (NotDetected); Phencyclidine (PCP) Not Detected (NotDetected); THC/Cannabinoid Screen Not Detected (NotDetected); Tricyclic Screen Not Detected (NotDetected)
[2024-03-21 03:16] LABS: %Basophils 1.1 % (0.0-1.0); %Eosinophils 2.1 % (0.0-10.0); %Neutrophils 67.5 % (42.0-75.0); Hematocrit 46.6 % (42.0-52.0); Hemoglobin 15.7 g/dL (14.0-18.0); Mean Corpuscular HGB CONC 33.7 g/dL (32.0-36.0); Mean Corpuscular Hemoglobin 30.7 pg (27.0-31.0); Mean Platelet Volume 10.6 fL (7.4-10.4); Platelet Count 203 10x3/uL (130-400); RBC Distribution Width 16.4 % (11.5-14.5); Red Blood Cell (RBC) Count 5.12 mill/uL (4.70-6.10)
[2024-03-21 03:37] LABS: Troponin I 0.054 ng/mL (< 0.028)
[2024-03-21 03:48] LABS: Hemoglobin A1c 7.5 % (4.0-6.0)
[2024-03-21 03:51] LABS: ALT (SGPT) 14 U/L (Less than 45); AST (SGOT) 30 U/L (11-34); Albumin 3.5 g/dL (3.1-4.5); Alkaline Phosphatase 126 U/L (40-110); Anion Gap 17 mmol/L (10-20); BUN (Urea Nitrogen) 17 mg/dL (8.4-25.7); Bilirubin, Total 3.9 mg/dL (0.3-1.2); Calc. Creatinine Clearance 114 mL/min (70-130); Calcium 9.4 mg/dL (7.8-10.44); Carbon Dioxide 24 mmol/L (22-29); Chloride 102 mmol/L (98-107); Estimated GFR 100; Globulin 3.1 g/dL (2.4-3.5); Glucose 109 mg/dL (70-105); Magnesium 1.5 mg/dL (1.6-2.6); Potassium 2.8 mmol/L (3.5-5.1); Protein, Total 6.6 g/dL (6.0-8.3); Sodium 140 mmol/L (136-145)
[2024-03-21] MEDS ORDERED: Electrolyte Replacement Protocol 1 EACH FS PRN (03:59)
[2024-03-21] MEDS ORDERED: Dextrose 50% Abboject 50 ML SYRINGE SLOW IVP PRN (04:32)
[2024-03-21] MEDS ORDERED: Insulin Lispro 100 UNIT/ML 10 ML VIAL SC PRN ×2 (04:32)
[2024-03-21] MEDS ORDERED: Glucagon 1 MG/ML KIT IM PRN (04:32)
[2024-03-21] MEDS ORDERED: Dextrose 5% in Water 1,000 ML IV PRN (04:32)
[2024-03-21] MEDS: Magnesium 2 GM/50 ML(in water) 2 GM in Premix 1 BAG IVPB SCH (05:07)
[2024-03-21] MEDS: Furosemide 40 MG (4 mL) VIAL SLOW IVP SCH (05:08)
[2024-03-21] MEDS: Potassium Chloride 20 MEQ TAB PO SCH (05:08)
[2024-03-21] MEDS ORDERED: Lorazepam 2 MG/ML VIAL IM PRN (05:34)
[2024-03-21] MEDS ORDERED: Lorazepam 1 MG TAB PO PRN (05:34)
[2024-03-21] MEDS: Thiamine HCl 200 MG/2 ML VIAL SLOW IVP SCH (06:09)
[2024-03-21] MEDS: Empagliflozin 25 MG TAB PO SCH (08:22)
[2024-03-21] MEDS: Multivit, Therapeutic 1 TAB PO SCH (08:22)
[2024-03-21] MEDS: Sertraline 100 MG TAB PO SCH (08:22)
[2024-03-21] MEDS: Folic Acid 1 MG TAB PO SCH (08:23)
[2024-03-21] MEDS: Aspirin Chewable 81 MG TAB PO SCH (08:23)
[2024-03-21] MEDS: Famotidine 20 MG TAB PO SCH (08:23)
[2024-03-21] MEDS: Nadolol 40 MG TAB PO SCH (08:23)
[2024-03-21] MEDS: Atorvastatin Calcium 10 MG TAB PO SCH (08:23)
[2024-03-21] MEDS: Losartan 25 MG TAB PO SCH (08:23)
[2024-03-21] MEDS: Spironolactone 25 MG TAB PO SCH (08:23)
[2024-03-21] MEDS: Famotidine/PF 20 mg/2ml Vial SLOW IVP SCH (08:24)
[2024-03-21 17:13] LABS: Potassium 3.4 mmol/L (3.5-5.1)
[2024-03-21] MEDS: Acetaminophen 325 MG TAB PO PRN (22:05)
[2024-03-22] MEDS: Ketorolac Tromethamine 30 MG (1 mL) VIAL IVP SCH (04:55)
[2024-03-22] MEDS ORDERED: Lorazepam 1 MG TAB PO PRN (05:34)
[2024-03-22 05:47] LABS: Anion Gap 18 mmol/L (10-20); BUN (Urea Nitrogen) 24 mg/dL (8.4-25.7); Calc. Creatinine Clearance 89 mL/min (70-130); Calcium 9.7 mg/dL (7.8-10.44); Carbon Dioxide 26 mmol/L (22-29); Chloride 100 mmol/L (98-107); Estimated GFR 78; Glucose 113 mg/dL (70-105); Magnesium 1.9 mg/dL (1.6-2.6); Potassium 3.6 mmol/L (3.5-5.1); Sodium 140 mmol/L (136-145)
[2024-03-22] MEDS ORDERED: Magnesium 2 GM/50 ML(in water) 2 GM in Premix 1 BAG IVPB SCH (08:00)
[2024-03-22] MEDS: Potassium Chloride 20 MEQ TAB PO SCH (09:48)
[2024-03-22] MEDS: Atorvastatin Calcium 40 MG TAB PO SCH (09:49)
[2024-03-22 11:18] VITALS: BP 138/99; TEMP 98.5
[2024-03-23] MEDS ORDERED: Lorazepam 1 MG TAB PO PRN (05:34)
[2024-03-24] MEDS ORDERED: Lorazepam 0.5 MG TAB PO PRN (05:34)
[2024-03-24] MEDS ORDERED: Thiamine 100 MG TAB PO SCH (09:00)
== END 2024-03-22 13:55 | disposition home or self-care (01) | DRG 291 ==
LOC: ERS 17:43 → OBS 23:54 → OBSVTOIN 03-21 03:49
PROVIDERS: ADMIT Student in an Organized Health Care Education/Training Program; ATTEND Internal Medicine
DX: I11.0 Hypertensive heart disease with heart failure (principal); I50.43 Acute on chronic combined systolic (congestive) and diastolic (congestive) heart failure; F14.10 Cocaine abuse, uncomplicated; I25.10 Atherosclerotic heart disease of native coronary artery without angina pectoris; E11.9 Type 2 diabetes mellitus without complications; E78.5 Hyperlipidemia, unspecified; K74.60 Unspecified cirrhosis of liver; E87.6 Hypokalemia; E83.42 Hypomagnesemia; Z95.1 Presence of aortocoronary bypass graft
CPT/HCPCS: 36415; 36416; 71046; 76705; 80048; 80053; 80306; 83036; 83690; 83735; 83880; 84484; 85025; 85610; 85730; 93005; 93798; 94760; 96365; 96366; 96375; 96376; G0378; J1885; J1940; J2543; J3411; J3475

== ENCOUNTER 2024-11-26 16:34 | Inpatient (IN) | payer OTHER ==
[2024-11-26 17:15] LABS: #Basophils 0.11 10x3/uL (0.0-0.2); #Eosinophils 0.12 10x3/uL (0.0-0.7); #Monocytes 1.03 10x3/uL (0.11-0.59); #Neutrophils 5.73 10x3/uL (1.40-6.50); %Basophils 1.4 % (0.0-1.0); %Eosinophils 1.5 % (0.0-10.0); %Lymphocytes 12.3 % (21.0-51.0); %Monocytes 12.9 % (0.0-10.0); %Neutrophils 71.5 % (42.0-75.0); Hematocrit 51.9 % (42.0-52.0); Hemoglobin 17.2 g/dL (14.0-18.0); Mean Corpuscular Hemoglobin 30.2 pg (27.0-31.0); Mean Corpuscular Volume 91.1 fL (78.0-98.0); Platelet Count 236 10x3/uL (130-400); Red Blood Cell (RBC) Count 5.70 mill/uL (4.70-6.10); White Blood Cell (WBC) Count 8.00 10x3/uL (4.8-10.8)
[2024-11-26 17:34] LABS: ALT (SGPT) 24 U/L (Less than 45); AST (SGOT) 55 U/L (11-34); Albumin 3.3 g/dL (3.1-4.5); Alkaline Phosphatase 133 U/L (40-110); Anion Gap 20 mmol/L (10-20); BUN (Urea Nitrogen) 14 mg/dL (8.4-25.7); Bilirubin, Total 4.9 mg/dL (0.3-1.2); Calc. Creatinine Clearance 0 mL/min (70-130); Calcium 9.0 mg/dL (7.8-10.44); Carbon Dioxide 21 mmol/L (22-29); Chloride 94 mmol/L (98-107); Globulin 3.4 g/dL (2.4-3.5); Glucose 157 mg/dL (70-105); Potassium 3.1 mmol/L (3.5-5.1); Sodium 132 mmol/L (136-145)
[2024-11-26] MEDS ORDERED: Azithromycin 500 MG VIAL ONE (18:02)
[2024-11-26] MEDS ORDERED: cefTRIAXone (ROCEPHIN) 2 GM VIAL ONE (18:02)
[2024-11-26 18:04] LABS: INR-International Normal Ratio 1.6; PTT 38.3 sec (22.9-36.1); Prothrombin Time 18.9 sec (12.0-14.7)
[2024-11-26] MEDS ORDERED: Furosemide 40 MG (4 mL) VIAL ONE (18:22)
[2024-11-26 19:04] LABS: Bacteria/HPF None Seen HPF (None Seen); CAUTI Indications for Culture Acute Hematuria; Glucose, Urine (Dipstick) Normal (Negative); Leukocyte Negative Leu/uL (Negative); Protein, Urine (Dipstick) 70 mg/dL (Neg-Trace); RBC/HPF None Seen HPF (0-3); Specific Gravity, Urine 1.006 (1.002-1.036); WBC/HPF 0-3 HPF (0-3)
[2024-11-26 19:08] LABS: Urine Culture Reflex No No
[2024-11-26] MEDS ORDERED: Calcium Carbonate 500 MG ChewTAB PO PRN (20:40)
[2024-11-26] MEDS ORDERED: Senokot S 8.6-50 MG TAB PO PRN (20:40)
[2024-11-26] MEDS ORDERED: Ondansetron PF 4 MG/2 ML Vial IVP PRN (20:40)
[2024-11-26] MEDS ORDERED: Melatonin 3 MG TAB PO PRN (20:40)
[2024-11-26] MEDS ORDERED: Electrolyte Replacement Protocol 1 EACH FS SCH (20:45)
[2024-11-26 21:52] LABS: Magnesium 1.7 mg/dL (1.6-2.6)
[2024-11-26 21:53] LABS: Cocaine Metabolite Screen PRELIM POSITIVE (Negative); THC/Cannabinoid Screen Negative (Negative); Tricyclic Screen Negative (Negative)
[2024-11-26] MEDS ORDERED: Dextrose 50% Abboject 50 ML SYRINGE SLOW IVP PRN (22:30)
[2024-11-26] MEDS ORDERED: Glucagon 1 MG/ML KIT IM PRN (22:30)
[2024-11-26 22:39] VITALS: BMI 34.7
[2024-11-26] MEDS: Magnesium 2 GM/50 ML(in water) 2 GM in Premix 1 BAG IVPB SCH (23:11)
[2024-11-27 03:43] LABS: #Basophils 0.08 10x3/uL (0.0-0.2); #Eosinophils 0.08 10x3/uL (0.0-0.7); #Monocytes 0.94 10x3/uL (0.11-0.59); #Neutrophils 6.39 10x3/uL (1.40-6.50); %Basophils 1.0 % (0.0-1.0); %Eosinophils 1.0 % (0.0-10.0); %Lymphocytes 10.7 % (21.0-51.0); %Monocytes 11.2 % (0.0-10.0); %Neutrophils 75.7 % (42.0-75.0); Hematocrit 52.3 % (42.0-52.0); Hemoglobin 17.2 g/dL (14.0-18.0); Mean Corpuscular Hemoglobin 30.7 pg (27.0-31.0); Mean Corpuscular Volume 93.4 fL (78.0-98.0); Platelet Count 246 10x3/uL (130-400); Red Blood Cell (RBC) Count 5.60 mill/uL (4.70-6.10); White Blood Cell (WBC) Count 8.42 10x3/uL (4.8-10.8)
[2024-11-27 03:46] LABS: ALT (SGPT) 24 U/L (Less than 45); AST (SGOT) 59 U/L (11-34); Albumin 3.3 g/dL (3.1-4.5); Alkaline Phosphatase 129 U/L (40-110); Anion Gap 21 mmol/L (10-20); BUN (Urea Nitrogen) 14 mg/dL (8.4-25.7); Bilirubin, Total 4.9 mg/dL (0.3-1.2); Calc. Creatinine Clearance 135 mL/min (70-130); Calcium 9.1 mg/dL (7.8-10.44); Carbon Dioxide 25 mmol/L (22-29); Chloride 94 mmol/L (98-107); Globulin 3.7 g/dL (2.4-3.5); Glucose 119 mg/dL (70-105); Magnesium 2.2 mg/dL (1.6-2.6); Potassium 3.6 mmol/L (3.5-5.1); Sodium 136 mmol/L (136-145)
[2024-11-27] MEDS: Furosemide 40 MG (4 mL) VIAL SLOW IVP SCH (09:07)
[2024-11-27] MEDS: Mupirocin 1 GM TUBE TP SCH (09:08)
[2024-11-27] MEDS: Multivit, Therapeutic 1 TAB PO SCH (09:08)
[2024-11-27] MEDS: Folic Acid 1 MG TAB PO SCH (09:08)
[2024-11-27] MEDS: Enoxaparin 40 MG (0.4 mL) SYRINGE SC SCH (09:08)
[2024-11-27] MEDS: Sacubitril 24MG/Valsartan 26 MG TAB PO SCH ×2 (13:21→13:30)
[2024-11-28 05:14] LABS: Magnesium 1.7 mg/dL (1.6-2.6)
[2024-11-28] MEDS: PNEUMOC 20-VAL CONJ-DIP CRM/PF 0.5 ML SYRINGE IM ONE ×2 (05:54→21:28)
[2024-11-28] MEDS: Magnesium 2 GM/50 ML(in water) 2 GM in Premix 1 BAG IVPB SCH (09:52)
[2024-11-29 03:56] LABS: Hematocrit 53.9 % (42.0-52.0); Hemoglobin 17.6 g/dL (14.0-18.0); Mean Corpuscular Hemoglobin 30.5 pg (27.0-31.0); Mean Corpuscular Volume 93.4 fL (78.0-98.0); Platelet Count 250 10x3/uL (130-400); Red Blood Cell (RBC) Count 5.77 mill/uL (4.70-6.10); White Blood Cell (WBC) Count 7.17 10x3/uL (4.8-10.8)
[2024-11-29 04:05] LABS: Anion Gap 16 mmol/L (10-20); BUN (Urea Nitrogen) 13 mg/dL (8.4-25.7); Calc. Creatinine Clearance 169 mL/min (70-130); Calcium 9.0 mg/dL (7.8-10.44); Carbon Dioxide 35 mmol/L (22-29); Chloride 94 mmol/L (98-107); Glucose 145 mg/dL (70-105); Potassium 2.9 mmol/L (3.5-5.1); Sodium 142 mmol/L (136-145)
[2024-11-29] MEDS: Sacubitril 24MG/Valsartan 26 MG TAB PO SCH (09:28)
[2024-11-29] MEDS: Carvedilol 6.25 MG TAB PO SCH ×2 (09:28→18:14)
[2024-11-29] MEDS: Acetaminophen 325 MG TAB PO PRN (09:28)
[2024-11-29] MEDS: Sacubitril 49 MG/Valsartan 51 MG TABLET PO SCH (20:57)
[2024-11-30] MEDS: Thiamine 100 MG TAB PO SCH (01:39)
[2024-11-30 08:04] LABS: Hematocrit 54.9 % (42.0-52.0); Hemoglobin 18.1 g/dL (14.0-18.0); Mean Corpuscular Hemoglobin 30.8 pg (27.0-31.0); Mean Corpuscular Volume 93.4 fL (78.0-98.0); Platelet Count 286 10x3/uL (130-400); Red Blood Cell (RBC) Count 5.88 mill/uL (4.70-6.10); White Blood Cell (WBC) Count 8.03 10x3/uL (4.8-10.8)
[2024-11-30 08:23] LABS: Anion Gap 16 mmol/L (10-20); BUN (Urea Nitrogen) 14 mg/dL (8.4-25.7); Calc. Creatinine Clearance 138 mL/min (70-130); Calcium 8.8 mg/dL (7.8-10.44); Carbon Dioxide 39 mmol/L (22-29); Chloride 90 mmol/L (98-107); Glucose 110 mg/dL (70-105); Magnesium 1.4 mg/dL (1.6-2.6); Potassium 2.7 mmol/L (3.5-5.1); Sodium 142 mmol/L (136-145)
[2024-11-30] MEDS: Magnesium Sulfate In Water 4 GM in Premix 1 BAG IVPB SCH (10:01)
[2024-11-30] MEDS ORDERED: Furosemide 40 MG (4 mL) VIAL SLOW IVP SCH (14:00)
[2024-12-01 05:04] LABS: Anion Gap 16 mmol/L (10-20); BUN (Urea Nitrogen) 16 mg/dL (8.4-25.7); Calc. Creatinine Clearance 107 mL/min (70-130); Calcium 8.9 mg/dL (7.8-10.44); Carbon Dioxide 39 mmol/L (22-29); Chloride 90 mmol/L (98-107); Glucose 194 mg/dL (70-105); Potassium 3.3 mmol/L (3.5-5.1); Sodium 142 mmol/L (136-145)
[2024-12-01] MEDS: Furosemide 40 MG (4 mL) VIAL SLOW IVP SCH (06:23)
[2024-12-01] MEDS: Spironolactone 25 MG TAB PO SCH (08:18)
[2024-12-02 05:11] LABS: #Basophils 0.11 10x3/uL (0.0-0.2); #Eosinophils 0.24 10x3/uL (0.0-0.7); #Monocytes 1.17 10x3/uL (0.11-0.59); #Neutrophils 4.16 10x3/uL (1.40-6.50); %Basophils 1.6 % (0.0-1.0); %Eosinophils 3.4 % (0.0-10.0); %Lymphocytes 18.2 % (21.0-51.0); %Monocytes 16.8 % (0.0-10.0); %Neutrophils 59.7 % (42.0-75.0); Hematocrit 55.4 % (42.0-52.0); Hemoglobin 18.3 g/dL (14.0-18.0); Mean Corpuscular Hemoglobin 30.7 pg (27.0-31.0); Mean Corpuscular Volume 93.0 fL (78.0-98.0); Platelet Count 264 10x3/uL (130-400); Red Blood Cell (RBC) Count 5.96 mill/uL (4.70-6.10); White Blood Cell (WBC) Count 6.97 10x3/uL (4.8-10.8)
[2024-12-02 05:14] LABS: Anion Gap 16 mmol/L (10-20); BUN (Urea Nitrogen) 19 mg/dL (8.4-25.7); Calc. Creatinine Clearance 97 mL/min (70-130); Calcium 9.3 mg/dL (7.8-10.44); Carbon Dioxide 35 mmol/L (22-29); Chloride 92 mmol/L (98-107); Glucose 144 mg/dL (70-105); Potassium 3.3 mmol/L (3.5-5.1); Sodium 140 mmol/L (136-145)
[2024-12-02] MEDS: Carvedilol 3.125 MG TAB PO SCH (11:35)
[2024-12-03 05:08] LABS: Anion Gap 16 mmol/L (10-20); BUN (Urea Nitrogen) 21 mg/dL (8.4-25.7); Calc. Creatinine Clearance 94 mL/min (70-130); Calcium 9.2 mg/dL (7.8-10.44); Carbon Dioxide 35 mmol/L (22-29); Chloride 92 mmol/L (98-107); Glucose 203 mg/dL (70-105); Potassium 3.3 mmol/L (3.5-5.1); Sodium 140 mmol/L (136-145)
[2024-12-03 05:09] LABS: #Basophils 0.13 10x3/uL (0.0-0.2); #Eosinophils 0.27 10x3/uL (0.0-0.7); #Monocytes 0.92 10x3/uL (0.11-0.59); #Neutrophils 3.81 10x3/uL (1.40-6.50); %Basophils 2.0 % (0.0-1.0); %Eosinophils 4.2 % (0.0-10.0); %Lymphocytes 19.8 % (21.0-51.0); %Monocytes 14.3 % (0.0-10.0); %Neutrophils 59.2 % (42.0-75.0); Hematocrit 55.4 % (42.0-52.0); Hemoglobin 17.6 g/dL (14.0-18.0); Mean Corpuscular Hemoglobin 29.3 pg (27.0-31.0); Mean Corpuscular Volume 92.3 fL (78.0-98.0); Platelet Count 281 10x3/uL (130-400); Red Blood Cell (RBC) Count 6.00 mill/uL (4.70-6.10); White Blood Cell (WBC) Count 6.43 10x3/uL (4.8-10.8)
[2024-12-03 06:27] LABS: Magnesium 1.8 mg/dL (1.6-2.6)
[2024-12-03] MEDS: Magnesium 2 GM/50 ML(in water) 2 GM in Premix 1 BAG IVPB SCH (10:26)
[2024-12-03 12:09] VITALS: BP 134/94; TEMP 98
== END 2024-12-03 15:20 | disposition home or self-care (01) | DRG 432 ==
LOC: ERS 16:34 → ERHOLD 20:40 → CCU 22:01 → IMCU/EMU 11-27 21:02 → 2NO 11-29 18:06 → IMCU/EMU 11-29 18:06 → UNDODISIN 12-03 15:20
PROVIDERS: ADMIT Internal Medicine; ATTEND Family Medicine
PROC: 3E03329 Introduction of Other Anti-infective into Peripheral Vein, Percutaneous Approach (ICD-10-PCS; 2024-11-26)
PROC: 0T9B70Z Drainage of Bladder with Drainage Device, Via Natural or Artificial Opening (ICD-10-PCS; 2024-11-26)
PROC: 5A09357 Assistance with Respiratory Ventilation, Less than 24 Consecutive Hours, Continuous Positive Airway Pressure (ICD-10-PCS; 2024-11-27)
PROC: 3E0234Z Introduction of Serum, Toxoid and Vaccine into Muscle, Percutaneous Approach (ICD-10-PCS; 2024-11-27)
PROC: HZ2ZZZZ Detoxification Services for Substance Abuse Treatment (ICD-10-PCS; principal; 2024-11-28)
DX: K70.31 Alcoholic cirrhosis of liver with ascites (principal); I50.43 Acute on chronic combined systolic (congestive) and diastolic (congestive) heart failure; J96.01 Acute respiratory failure with hypoxia; F10.239 Alcohol dependence with withdrawal, unspecified; K76.6 Portal hypertension; E87.1 Hypo-osmolality and hyponatremia; F14.20 Cocaine dependence, uncomplicated; I42.9 Cardiomyopathy, unspecified; E87.3 Alkalosis; I11.0 Hypertensive heart disease with heart failure; K52.9 Noninfective gastroenteritis and colitis, unspecified; K82.9 Disease of gallbladder, unspecified; I25.10 Atherosclerotic heart disease of native coronary artery without angina pectoris; E78.5 Hyperlipidemia, unspecified; Z23 Encounter for immunization; E11.9 Type 2 diabetes mellitus without complications; E80.6 Other disorders of bilirubin metabolism; E87.6 Hypokalemia; Z71.41 Alcohol abuse counseling and surveillance of alcoholic; Z95.1 Presence of aortocoronary bypass graft; Z91.199 Patient's noncompliance with other medical treatment and regimen due to unspecified reason; Z71.51 Drug abuse counseling and surveillance of drug abuser; Z86.73 Personal history of transient ischemic attack (TIA), and cerebral infarction without residual deficits; Z71.6 Tobacco abuse counseling
CPT/HCPCS: 36415; 36416; 71045; 71275; 74177; 80048; 80053; 80306; 81001; 82140; 83605; 83735; 83880; 84100; 84484; 85025; 85027; 85610; 85730; 87040; 87086; 93005; 93306; 96365; 96367; 96375; J0456; J0696; J1650; J1815; J1940; J3411; J3475; J3480; Q9967

== ENCOUNTER 2025-01-19 14:51 | Inpatient (IN) | payer OTHER ==
[2025-01-19 17:04] LABS: #Basophils 0.07 10x3/uL (0.0-0.2); #Eosinophils 0.12 10x3/uL (0.0-0.7); #Monocytes 0.75 10x3/uL (0.11-0.59); #Neutrophils 9.57 10x3/uL (1.40-6.50); %Basophils 0.6 % (0.0-1.0); %Eosinophils 1.0 % (0.0-10.0); %Lymphocytes 7.7 % (21.0-51.0); %Monocytes 6.6 % (0.0-10.0); %Neutrophils 83.6 % (42.0-75.0); Hematocrit 52.9 % (42.0-52.0); Hemoglobin 17.4 g/dL (14.0-18.0); Mean Corpuscular Hemoglobin 30.7 pg (27.0-31.0); Mean Corpuscular Volume 93.5 fL (78.0-98.0); Platelet Count 208 10x3/uL (130-400); Red Blood Cell (RBC) Count 5.66 mill/uL (4.70-6.10); White Blood Cell (WBC) Count 11.45 10x3/uL (4.8-10.8)
[2025-01-19 17:26] LABS: ALT (SGPT) 18 U/L (Less than 45); AST (SGOT) 34 U/L (11-34); Albumin 4.1 g/dL (3.1-4.5); Alkaline Phosphatase 128 U/L (40-110); Anion Gap 17 mmol/L (10-20); BUN (Urea Nitrogen) 10 mg/dL (8.4-25.7); Bilirubin, Total 3.5 mg/dL (0.3-1.2); Calc. Creatinine Clearance 0 mL/min (70-130); Calcium 9.7 mg/dL (7.8-10.44); Carbon Dioxide 28 mmol/L (22-29); Chloride 99 mmol/L (98-107); Globulin 3.2 g/dL (2.4-3.5); Glucose 176 mg/dL (70-105); Potassium 3.4 mmol/L (3.5-5.1); Sodium 141 mmol/L (136-145)
[2025-01-19] MEDS ORDERED: Furosemide 40 MG (4 mL) VIAL ONE (20:14)
[2025-01-19] MEDS ORDERED: Acetaminophen 500 MG TAB PO PRN (22:17)
[2025-01-19] MEDS ORDERED: Glucagon 1 MG/ML KIT IM PRN (22:27)
[2025-01-19] MEDS ORDERED: Dextrose 50% Abboject 50 ML SYRINGE SLOW IVP PRN (22:27)
[2025-01-20 00:26] VITALS: BMI 29.6
[2025-01-20] MEDS: Melatonin 3 MG TAB PO SCH (02:20)
[2025-01-20 05:50] LABS: ALT (SGPT) 27 U/L (Less than 45); AST (SGOT) 43 U/L (11-34); Albumin 3.6 g/dL (3.1-4.5); Alkaline Phosphatase 101 U/L (40-110); Anion Gap 12 mmol/L (10-20); BUN (Urea Nitrogen) 14 mg/dL (8.4-25.7); Bilirubin, Total 3.3 mg/dL (0.3-1.2); Calc. Creatinine Clearance 81 mL/min (70-130); Calcium 9.1 mg/dL (7.8-10.44); Carbon Dioxide 27 mmol/L (22-29); Chloride 99 mmol/L (98-107); Globulin 2.8 g/dL (2.4-3.5); Glucose 124 mg/dL (70-105); Potassium 3.5 mmol/L (3.5-5.1); Sodium 134 mmol/L (136-145)
[2025-01-20] MEDS: Thiamine 100 MG TAB PO SCH (08:58)
[2025-01-20 15:00] LABS: Fluid, Triglycerides 39 mg/dL (Not Available); Pleural Fluid, Amylase Less than 30 U/L (Not Available); Pleural Fluid, Glucose 177 mg/dL; Pleural Fluid, LDH 104 U/L (Not Available); Pleural Fluid, Protein 3.3 g/dL
[2025-01-20 15:18] LABS: RBC Count-Automated (BF) 9 /cu.mm; WBC/Nucleated-Auto (BF) 0 /cu.mm
[2025-01-20 15:26] LABS: Fluid, pH - Pleural Fld Greater than 7.500 (7.60 - 7.66)
[2025-01-20] MEDS: Carvedilol 3.125 MG TAB PO SCH (16:53)
[2025-01-20] MEDS: Sacubitril 49 MG/Valsartan 51 MG TABLET PO SCH (20:59)
[2025-01-21] MEDS: Citalopram 20 MG TAB PO SCH (08:24)
[2025-01-21] MEDS: Folic Acid 1 MG TAB PO SCH (08:24)
[2025-01-21] MEDS ORDERED: Dapagliflozin Propanediol 10 MG TAB PO SCH (09:00)
[2025-01-21 10:28] LABS: #Basophils 0.14 10x3/uL (0.0-0.2); #Eosinophils 0.27 10x3/uL (0.0-0.7); #Monocytes 1.22 10x3/uL (0.11-0.59); #Neutrophils 8.21 10x3/uL (1.40-6.50); %Basophils 1.2 % (0.0-1.0); %Eosinophils 2.4 % (0.0-10.0); %Lymphocytes 13.7 % (21.0-51.0); %Monocytes 10.7 % (0.0-10.0); %Neutrophils 71.7 % (42.0-75.0); Hematocrit 51.3 % (42.0-52.0); Hemoglobin 17.7 g/dL (14.0-18.0); Mean Corpuscular Hemoglobin 31.3 pg (27.0-31.0); Mean Corpuscular Volume 90.8 fL (78.0-98.0); Platelet Count 231 10x3/uL (130-400); Red Blood Cell (RBC) Count 5.65 mill/uL (4.70-6.10); White Blood Cell (WBC) Count 11.45 10x3/uL (4.8-10.8)
[2025-01-21 10:51] LABS: ALT (SGPT) 42 U/L (Less than 45); AST (SGOT) 67 U/L (11-34); Albumin 3.3 g/dL (3.1-4.5); Alkaline Phosphatase 102 U/L (40-110); Anion Gap 16 mmol/L (10-20); BUN (Urea Nitrogen) 15 mg/dL (8.4-25.7); Bilirubin, Total 3.3 mg/dL (0.3-1.2); Calc. Creatinine Clearance 123 mL/min (70-130); Calcium 8.7 mg/dL (7.8-10.44); Carbon Dioxide 26 mmol/L (22-29); Chloride 99 mmol/L (98-107); Globulin 2.8 g/dL (2.4-3.5); Glucose 122 mg/dL (70-105); Potassium 2.9 mmol/L (3.5-5.1); Sodium 138 mmol/L (136-145)
[2025-01-21 12:38] VITALS: BP 151/91; TEMP 98
[2025-01-23] MEDS ORDERED: FLU (Fluarix Triv) 25-26 (6MOS UP)/PF 45 MCG/0.5 ML Syringe IM ONE (09:00)
== END 2025-01-21 16:02 | disposition home or self-care (01) | DRG 433 ==
LOC: ERS 14:51 → OBS 21:51 → OBSVTOIN 01-21 09:01
PROVIDERS: ADMIT Student in an Organized Health Care Education/Training Program; ATTEND Family Medicine
PROC: 0W993ZZ Drainage of Right Pleural Cavity, Percutaneous Approach (ICD-10-PCS; principal; 2025-01-20)
DX: K70.30 Alcoholic cirrhosis of liver without ascites (principal); I50.22 Chronic systolic (congestive) heart failure; J91.8 Pleural effusion in other conditions classified elsewhere; I25.10 Atherosclerotic heart disease of native coronary artery without angina pectoris; Z98.890 Other specified postprocedural states; Z95.1 Presence of aortocoronary bypass graft; Z87.891 Personal history of nicotine dependence; I95.1 Orthostatic hypotension; E11.65 Type 2 diabetes mellitus with hyperglycemia; Z79.899 Other long term (current) drug therapy; Z91.148 Patient's other noncompliance with medication regimen for other reason; I11.0 Hypertensive heart disease with heart failure
CPT/HCPCS: 36415; 36416; 71045; 71275; 76705; 80053; 82150; 82945; 83615; 83880; 83986; 84157; 84443; 84478; 84484; 85025; 87116; 87206; 87428; 88112; 89051; 93005; 96361; 96374; G0378; J1815; J1940; Q9967

== ENCOUNTER 2025-02-07 22:47 | Emergency (ER) | payer OTHER ==
[2025-02-07 23:28] LABS: #Basophils 0.14 10x3/uL (0.0-0.2); #Eosinophils 0.32 10x3/uL (0.0-0.7); #Monocytes 1.09 10x3/uL (0.11-0.59); #Neutrophils 7.81 10x3/uL (1.40-6.50); %Basophils 1.2 % (0.0-1.0); %Eosinophils 2.8 % (0.0-10.0); %Lymphocytes 16.4 % (21.0-51.0); %Monocytes 9.7 % (0.0-10.0); %Neutrophils 69.5 % (42.0-75.0); Hematocrit 54.9 % (42.0-52.0); Hemoglobin 18.6 g/dL (14.0-18.0); Mean Corpuscular Hemoglobin 30.9 pg (27.0-31.0); Mean Corpuscular Volume 91.2 fL (78.0-98.0); Platelet Count 253 10x3/uL (130-400); Red Blood Cell (RBC) Count 6.02 mill/uL (4.70-6.10); White Blood Cell (WBC) Count 11.25 10x3/uL (4.8-10.8)
[2025-02-07 23:45] LABS: ALT (SGPT) 22 U/L (Less than 45); AST (SGOT) 30 U/L (11-34); Albumin 4.2 g/dL (3.1-4.5); Alkaline Phosphatase 142 U/L (40-110); Anion Gap 17 mmol/L (10-20); BUN (Urea Nitrogen) 11 mg/dL (8.4-25.7); Bilirubin, Total 3.2 mg/dL (0.3-1.2); Calc. Creatinine Clearance 0 mL/min (70-130); Calcium 9.4 mg/dL (7.8-10.44); Carbon Dioxide 27 mmol/L (22-29); Chloride 94 mmol/L (98-107); Globulin 2.8 g/dL (2.4-3.5); Glucose 191 mg/dL (70-105); Lipase 49 U/L (8-78); Potassium 3.6 mmol/L (3.5-5.1); Sodium 134 mmol/L (136-145)
[2025-02-08] MEDS ORDERED: Furosemide 40 MG (4 mL) VIAL ONE (00:14)
[2025-02-08 02:02] LABS: Bacteria/HPF None Seen HPF (None Seen); CAUTI Indications for Culture Pelvic or flank pain; Glucose, Urine (Dipstick) Normal (Negative); Leukocyte Negative Leu/uL (Negative); Protein, Urine (Dipstick) Negative (Neg-Trace); RBC/HPF None Seen HPF (0-3); Specific Gravity, Urine 1.004 (1.002-1.036); WBC/HPF 0-3 HPF (0-3)
[2025-02-08 02:03] LABS: Urine Culture Reflex No No
== END 2025-02-08 06:24 | disposition home or self-care (01) ==
LOC: ERS 22:47
DX: J90 Pleural effusion, not elsewhere classified (principal); I25.10 Atherosclerotic heart disease of native coronary artery without angina pectoris; E11.9 Type 2 diabetes mellitus without complications; I11.0 Hypertensive heart disease with heart failure; I50.9 Heart failure, unspecified; Z86.73 Personal history of transient ischemic attack (TIA), and cerebral infarction without residual deficits; Z87.891 Personal history of nicotine dependence
CPT/HCPCS: 32555; 71045; 76705; 80053; 81001; 83605; 83690; 83880; 84484; 85025; 93005; 96374; J1940